=== PATIENT | female | born 1950 | race Caucasian/White ===

== ENCOUNTER → 2016-10-11 | Outpatient (CLI) | payer OTHER ==
[~2016-10-11] MED LIST: ACET-1138 PO; ASPEC325 PO; EZET10TA63 PO; FRRG PO; METO50TA7 PO; MULT-506 PO; OMEP10CA2 PO; OPTIRAY 320 IV PRN; ROSU40TA PO; RXC5 PO
[2016-10-11 16:17] LABS: ALT/SGPT 29 U/L (12-78); AMYLASE 62 U/L (25-115); AST/SGOT 15 U/L (15-37); BLOOD UREA NITROGEN 14 mg/dl (7-18); BUN/CREATININE RATIO 16.7 (10-20); CALCIUM 9.6 mg/dl (8.5-10.1); CARBON DIOXIDE 28 mmol/L (21-32); CHLORIDE 102 mmol/L (98-107); CREATININE 0.86 mg/dl (0.60-1.20); GLUCOSE 97 mg/dl (70-99); POTASSIUM 3.8 mmol/L (3.5-5.1); SODIUM 137 mmol/L (136-145)
[2016-10-11 16:18] LABS: ALB/GLOB RATIO 1.3 (0.9-2); ALKALINE PHOSPHATASE 95 U/L (45-117)
[2016-10-11 16:40] LABS: BASO % 0.3 %; BASO ABS # 0.03 K/uL (0-0.2); COMPLETE YES; EOS % 2.7 %; IG% 0.3 %; LYMPH ABS # 3.02 K/uL (1.2-3.4); MEAN CELL VOLUME 91.9 fL (80-100); MEAN CORPUSCULAR HEMOGLOBIN 32.4 pg (25-34); MEAN CORPUSCULAR HGB CONC 35.2 g/dl (32-36); MEAN PLATELET VOLUME 10.5 fL (7.4-10.4); MONO % 11.9 %; NEUT % 53.8 %; PLATELET COUNT 306 K/uL (130-400); RED BLOOD COUNT 4.79 M/uL (4.2-5.4); WHITE BLOOD COUNT 9.74 K/uL (4.8-10.8)
[2016-10-11 16:45] LABS: URINE APPEARANCE CLEAR (CLEAR); URINE BILIRUBIN NEG (NEG); URINE COLOR YELLOW; URINE NITRITE NEG (NEG); URINE SPECIFIC GRAVITY 1.017 (1.000-1.030); UROBILINOGEN NEG (NEG)
[2016-10-11 16:54] LABS: MANUAL MICROSCOPIC REQUIRED? NO; REVIEW REQ? NO
--- NOTE | 2016-10-11 16:57 | DIAGNOSTIC IMAGING REPORT ---
CT ABD/PELVIS IV AND ORAL CONT CLINICAL HISTORY: A four-quadrant pain and persistent vomiting. COMPARISON STUDY: None. TECHNIQUE: Following the IV administration of 115 mL of Optiray-320, CT scan of the abdomen and pelvis was performed from the lung bases to the proximal femurs. Images are reviewed in the axial, sagittal, and coronal planes. IV contrast was administered without complication. CT DOSE: 414.49 mGycm FINDINGS: Lower chest: There are bilateral breast implants. There are bibasal atelectatic changes. There is a hiatal hernia. Liver: There is a very subtle 21 mm hypodense lesion within the medial segment of the left lobe of the liver. An MRI is recommended for further evaluation. Gallbladder: Unremarkable. Spleen: Normal in size and attenuation. Pancreas: Unremarkable. Adrenal glands: There is minor nodular thickening left adrenal gland. Kidneys: There is a left renal cortical scarring. There are tiny renal hypodensities which are too small to characterize but likely represent cysts. These measure up to 4 mm in diameter. Bowel: There are no transition zones indicate bowel obstruction. The appendix appears normal. There is sigmoid diverticulosis. There is no acute peridiverticular inflammatory change. Peritoneum: There is no intraperitoneal free air or abdominal ascites. Vasculature: The abdominal aorta is normal in course and caliber. Adenopathy: None. Pelvic viscera: The bladder, and pelvic viscera are unremarkable. Skeletal structures: No destructive osseous lesions are seen. IMPRESSION: 1. No evidence of bowel obstruction. No evidence of free air 2. Normal appendix 3. Colonic diverticulosis. No evidence of acute diverticulitis 4. Very subtle 21 mm hypodensity within the medial segment of the left lobe of the liver. An MRI is recommended for further characterization, to help determine with this represents a true lesion or area of focal fat. Electronically signed by: Kunal Ramos M.D. 10/11/2016 4:56 PM Dictated Date/Time: 10/11/2016 4:50 PM
== END | disposition home or self-care (01) ==
LOC: C.CTS 15:19
PROVIDERS: ATTEND Internal Medicine
DX: R10.32 Left lower quadrant pain (principal); R11.10 Vomiting, unspecified; R93.2 Abnormal findings on diagnostic imaging of liver and biliary tract; K57.30 Diverticulosis of large intestine without perforation or abscess without bleeding

== ENCOUNTER → 2016-10-21 | Outpatient (CLI) | payer OTHER ==
[~2016-10-21] MED LIST changes: +GADOXETATE DISODIUM (NON-WT BASED PROCEDURE) IV PRN; -OPTIRAY 320 IV PRN
--- NOTE | 2016-10-21 12:45 | DIAGNOSTIC IMAGING REPORT ---
MRI LIVER COMBO CLINICAL HISTORY: Abnormal CT. Possible liver lesion. COMPARISON STUDY: CT of the abdomen and pelvis October 11, 2016. TECHNIQUE: Utilizing a 1.5 Nicol magnet and dedicated coil, multiplanar, multiecho imaging of the abdomen was performed pre and postcontrast administration. Post contrast imaging was performed utilizing dynamic enhancement. Injection of 10 cc of Eovist was uneventful. FINDINGS: Liver morphology is normal. No hepatic lesions identified. The possible 2.1 cm lesion within the medial segment of the left hepatic lobe on CT of October 11, 2016 is not visualized on this exam. This likely reflected focal fat although is not evident on the out of phase sequence. There is no biliary ductal dilatation. The spleen, adrenal glands and pancreas are normal. There is scarring within the midpole the left kidney. There are several subcentimeter renal lesions which likely reflect cysts. There is no abdominal lymphadenopathy. There is mild S-shaped scoliosis of thoracolumbar spine. Breast implants are incidentally noted. IMPRESSION: No hepatic lesions. The possible liver lesion shown on CT of October 11, 2016 is not visualized on this exam and likely reflected focal fat. Electronically signed by: Joao Mckeon M.D. 10/21/2016 12:44 PM Dictated Date/Time: 10/21/2016 12:34 PM
== END | disposition home or self-care (01) ==
LOC: C.MRI 11:01
PROVIDERS: ATTEND Internal Medicine
DX: K76.0 Fatty (change of) liver, not elsewhere classified (principal)

== ENCOUNTER → 2017-06-18 | Day surgery (SDC) | payer OTHER ==
[2017-05-26 15:06] VITALS: Ht 157.5 cm; Wt 72.3 kg
[~2017-06-18] VITALS: Ht 157.5 cm; Wt 72.3 kg
[~2017-06-18] MED LIST changes: -ACET-1138 PO; -ASPEC325 PO; +ASPI-435 PO; -FRRG PO; -GADOXETATE DISODIUM (NON-WT BASED PROCEDURE) IV PRN; +IOPAMIDOL INJ 61% 15 ML VIAL ONE; +LIDOCAINE HCL 1% MPF 5 ML VIAL ONE; -MULT-506 PO; +NXM/40 PO; -OMEP10CA2 PO; -RXC5 PO; +SODIUM CHLORIDE 0.9% INJ 10 ML VIAL ONE
--- NOTE | 2017-06-18 14:31 | History & Physical Bridge - SC ---
H&P Re-Evaluation Bridge Note: I have examined the patient, reviewed the History & Physical and in the interval since the performance of the History & Physical I have noted the following changes of clinical significance: No changes noted
[2017-06-18 14:55] VITALS: TEMP 36.7
--- NOTE | 2017-06-18 14:57 | Discharge Instructions ---
Discharge Instructions Date of Service Jun 18, 2017. Visit Reason for Visit: Lumbar Spinal Stenosis Discharge Discharge Diagnosis / Problem: leg pain Discharge Goals Goal(s): Decrease discomfort, Improve function Medications Stopped Medications Name(s): asa prn, last dose 06/13/17 Activity Recommendations Activity Limitations: resume your previous activity Anesthesia . Post Anesthesia Instructions: If you have had General Anesthesia or IV Sedation: * Do not drive today. * Resume driving when surgeon permits. * Do not make important decisions or sign legal documents today. * Call surgeon for: 1. Temperature elevations greater than 101 degrees F. 2. Uncontrollable pain. 3. Excessive bleeding. 4. Persistent nausea and vomiting. 5. Medication intolerance (nausea, vomiting or rash). * For nausea and vomiting use only clear liquids such as: tea, soda, bouillon until nausea subsides, then gradually increase diet as tolerated. * If you have any concerns or questions, call your surgeon's office. If physician is unavailable and it is an emergency, call 911 or go to the nearest emergency room. . Diet Recommendations Recommended Home Diet: resume previous diet Procedures Procedures Performed: LUMBAR EPIDURAL STEROID INJECTION Pending Studies Studies pending at discharge: no Medical Emergencies . Who to Call and When: Medical Emergencies: If at any time you feel your situation is an emergency, please call 911 immediately. . Non-Emergent Contact Non-Emergency issues call your: Specialist . . "Provider Documentation" section prepared by Elijah May. .
[2017-06-18 15:05] VITALS: BP 156/84; PULSE 64; O2SAT 96
--- NOTE | 2017-06-18 15:12 | OPERATIVE REPORT ---
DATE OF OPERATION: 06/18/2017 PREOPERATIVE DIAGNOSIS: Lumbar spinal stenosis with neurogenic claudication. POSTOPERATIVE DIAGNOSIS: Same. PROCEDURE: Left paramedian L5-S1 intralaminar epidural steroid injection under fluoroscopic guidance. INDICATIONS: The patient is a 67-year-old white female who has had a 2-year history of lumbar spinal stenosis with neurogenic claudication that has not responded to conservative measures. She presents today for an epidural injection to provide her with relief of the lower extremity radicular pain. PHYSICAL EXAMINATION: Pleasant female seated comfortably. She has no issues with forward flexion or extension. She has normal motor and sensory examination of her lower extremities. Negative seated straight leg raises. CONSENT: Verbal and written consent was obtained from the patient. Risks and benefits were reviewed. Risks include but are not limited to epidural abscess, epidural hematoma, allergic reaction, dural puncture. The patient wishes to proceed. DESCRIPTION OF PROCEDURE: The patient was taken back to the special procedures room of the [facility] where she was maintained in a prone position. Backside was cleansed with Betadine x3 and a dry sterile dressing was applied. Fluoroscope was used to identify the L5-S1 intralaminar space. Overlying skin on the left side was anesthetized with 4 mL of lidocaine 1% with a 25 gauge 1.5-inch needle. A 22 gauge 3.5 inch Tuohy needle was then directed down towards the intralaminar space. It was advanced under lateral fluoroscopic guidance and loss of resistance was noted at a depth of 6 cm. Isovue-300 contrast 1 mL was injected in which demonstrated an epidural uptake pattern. She then underwent injection after negative aspiration of 40 mg of Depo-Medrol and 4 mL of preservative free sodium chloride. Injection was well tolerated. DISPOSITION: 1. The patient is taken out into the discharge recovery area where she will be discharged home once discharge criteria have been met. 2. Follow up in the [facility] office in 2-4 weeks. I attest to the content of the Intraoperative Record and any orders documented therein. Any exception s are noted below.
== END | disposition home or self-care (01) ==
LOC: X.SURG 13:25
PROVIDERS: ATTEND Physical Medicine & Rehabilitation
DX: M48.062 Spinal stenosis, lumbar region with neurogenic claudication (principal)

== ENCOUNTER 2017-08-20 12:00 | Emergency (ER) | payer OTHER ==
[~2017-08-20] VITALS: Ht 160 cm; Wt 71.6 kg
[~2017-08-20 12:00] MED LIST changes: -IOPAMIDOL INJ 61% 15 ML VIAL ONE; -LIDOCAINE HCL 1% MPF 5 ML VIAL ONE; -METO50TA7 PO; +METO50TA8 PO; -SODIUM CHLORIDE 0.9% INJ 10 ML VIAL ONE
[2017-08-20 12:03] VITALS: TEMP 37.1
[2017-08-20] MEDS ORDERED: ASPI325T39 PO (12:19)
[2017-08-20] MEDS ORDERED: SODIUM CHLORIDE 0.9% 1000ML 1,000 ML IV STA (12:28)
[2017-08-20 12:34] VITALS: O2SAT 94; Ht 160 cm; Wt 71.6 kg
[2017-08-20 12:35] LABS: BASO % 0.4 %; BASO ABS # 0.03 K/uL (0-0.2); EOS % 3.3 %; EOS ABS # 0.28 K/uL (0-0.5); HEMATOCRIT 41.2 % (37-47); HEMOGLOBIN 14.3 g/dL (12.0-16.0); IG# 0.02 K/uL (0.00-0.02); LYMPH ABS # 2.37 K/uL (1.2-3.4); MEAN CELL VOLUME 91.6 fL (80-100); MEAN CORPUSCULAR HEMOGLOBIN 31.8 pg (25-34); MEAN CORPUSCULAR HGB CONC 34.7 g/dl (32-36); MEAN PLATELET VOLUME 9.4 fL (7.4-10.4); MONO % 9.7 %; MONO ABS # 0.82 K/uL (0.11-0.59); NEUT % 58.4 %; NEUT ABS # 4.94 K/uL (1.4-6.5); PLATELET COUNT 306 K/uL (130-400); RED CELL DISTRIBUTION WIDTH CV 12.6 % (11.5-14.5); WHITE BLOOD COUNT 8.46 K/uL (4.8-10.8)
[2017-08-20] MEDS ORDERED: ONDANSETRON INJ 2 MG/ML 2 ML VIAL IV STA ×2 (12:42→14:23)
[2017-08-20] MEDS ORDERED: MoRPHine SULFATE 4 MG/ML 1 ML CARP\\VIAL IV STA (12:42)
[2017-08-20 12:43] LABS: CALCIUM 9.4 mg/dl (8.5-10.1); CREATININE 0.92 mg/dl (0.60-1.20); POTASSIUM 3.9 mmol/L (3.5-5.1)
[2017-08-20 12:44] LABS: PTT PATIENT 23.6 SECONDS (21.0-31.0)
[2017-08-20 12:54] LABS: TOTAL PROTEIN 7.6 gm/dl (6.4-8.2)
--- NOTE | 2017-08-20 13:15 | EMERGENCY ROOM VISIT NOTE ---
History Report prepared by Varun: Too Johnson Under the Supervision of: Dr. Bill Cabrera M.D. First contact with patient: 12:28 Chief Complaint: DIARRHEA Stated Complaint: DIARRHEA Nursing Triage Summary: Pt states, "I have extreme diarrhea and haven't been eating. I have a h/a and stiff neck. Ailyn said to come here." Diffuse abd pain and nausea. Sx x 1 week. Just returned from [facility] approx 2 weeks ago History of Present Illness The patient is a 67 year old female who presents to the Emergency Room with complaints of resolved diarrhea for six days. She recently traveled to [facility] for a mission trip and has been home since August 08, 2017. She denies taking any medication prior to traveling or during her travels. She was prescribed Cipro prior to leaving, though she did not take it, because she does not like taking antibiotics. She notes that she cannot give a stool sample, because there is nothing in there. She notes the last time she had a bowel movement was yesterday. She notes that she began experiencing diarrhea six days ago. She notes that she contacted her PCP who informed her that they would not prescribe her any medication without a stool sample and she has been unable to provide one. She was seen at [facility] and was advised to come to this ED for evaluation. Per , the patient has not been able to get out of the bed. She notes weakness, fatigue, and abdominal pain. She currently rates her pain a 7/10 in severity. She notes her stools were black. She notes a stiff neck with a headache for four days. She has been taking Excedrin, though it did not provide relief. She has not been drinking or eating well. She notes that she has felt warm, though she denies any recorded fevers. She notes her arms and legs feel weak. She states that she has been nauseous. She reports taking Nexium for acid reflux. She denies any history of abdominal surgeries. The patient reports mild weight loss, though is unsure how much. Pt denies LOC, fevers, chills, diaphoresis, visual changes, chest pain, breathing difficulties, vomiting, back pain, melena, hematochezia, urinary symptoms, numbness, rash, or other complaints. Source of History: patient, spouse/significant other Onset: six days Position: other (global) Symptom Intensity: Quality: other (diarrhea) Timing: resolved Associated Symptoms: + headache, + abdominal pain, + fatigue, + weakness Note: She notes black stools and a stiff neck. She notes weight loss. Review of Systems See HPI for pertinent positives and negatives. A total of ten systems were reviewed and were otherwise negative. Past Medical & Surgical Medical Problems: (1) Right Knee DJD Surgical Problems: (1) H/O breast surgery Family History Not known due to adoption Social History Smoking Status: Never Smoker Smokeless Tobacco Use: No Alcohol Use: occasionally Drug Use: none Marital Status: Housing Status: lives with significant other Occupation Status: unemployed Current/Historical Medications Scheduled Aspirin (Aspirin Ec), 325 MG PO DAILY Esomeprazole Magnesium (Nexium), 40 MG PO QAM Ezetimibe (Zetia), 10 MG PO QAM Metoprolol Succ (Toprol Xl) (Toprol-Xl), 50 MG PO QAM Rosuvastatin Calcium (Crestor), 40 MG PO QAM Allergies Coded Allergies: Bisphosphonates (Verified Adverse Reaction, Unknown, INTOLERANT-STOMACH AND CHEST PAINS, 06/18/17) Physical Exam Vital Signs Date Time Temp Pulse Resp B/P (MAP) Pulse Ox O2 Delivery O2 Flow Rate FiO2 08/20/17 18:53 55 18 129/61 98 Room Air 08/20/17 17:18 56 16 119/55 98 Room Air 08/20/17 17:17 58 08/20/17 15:25 56 18 121/65 97 Room Air 08/20/17 14:33 58 18 119/60 98 Room Air 08/20/17 14:03 60 16 135/61 93 Room Air 08/20/17 13:01 58 08/20/17 12:34 94 Room Air 08/20/17 12:03 37.1 80 18 135/85 94 Room Air Physical Exam GENERAL: Awake, alert, uncomfortable-appearing, in no distress HENT: Normocephalic, atraumatic. Oropharynx unremarkable. EYES: Normal conjunctiva. Sclera non-icteric. NECK: Supple. No nuchal rigidity. FROM. No masses. RESPIRATORY: Clear to auscultation. No wheezes. CARDIAC: Normal rate. Normal rhythm. No murmurs. No rubs. Extremities warm and well perfused. Pulses equal. No JVD. GI: Soft, non-distended. diffuse tenderness of the abdomen. No rebound or guarding. No masses. RECTAL: Deferred. MUSCULOSKELETAL: Atraumatic. Chest examination reveals no tenderness. The back is symmetrical on inspection without obvious abnormality. There is no CVA tenderness to palpation. No joint edema. LOWER EXTREMITIES: Calves are equal size bilaterally and non-tender. No edema. No discoloration. NEURO: Normal sensorium. No sensory or motor deficits noted. SKIN: No rash or jaundice noted. Medical Decision & Procedures ER Provider Diagnostic Interpretation: Radiology results as stated below per my review and radiologist interpretation: ABD/PELVIS IV AND ORAL CONT CLINICAL HISTORY: 67 years-old Female presenting with diffuse abd pain, ?colitis. TECHNIQUE: Multidetector CT of the abdomen and pelvis was performed after the administration of oral and intravenous contrast. IV contrast: 90 mL of Optiray 320. A dose lowering technique was used consistent with the principles of ALARA (as low as reasonably achievable). COMPARISON: 10/11/2016. CT DOSE (mGy.cm): The estimated cumulative dose is 403.11 mGy.cm. FINDINGS: Director Of Analytics topogram: Large stool burden in the right colon. Lung bases: Bilateral breast implants noted. Bandlike and reticular dependent opacities likely atelectasis or scarring. Mild multichamber enlargement of the heart. Coronary artery and aortic valve calcification. No pericardial or pleural effusion. Liver: Normal morphology. Perfusional variation noted along the fissure for the ligamentum teres. No focal lesion. Patent hepatic vasculature. Biliary: No intrahepatic or extrahepatic biliary ductal dilatation. Normal gallbladder. Pancreas: Normal. Spleen: Normal. Adrenal glands: Normal. Kidneys and ureters: Cortical deformity of the interpolar region of the left kidney could suggest prior injury, infarct, or infection. No hydronephrosis. No nephrolithiasis. Few tiny renal cysts suggested. Normal ureters. Bladder: Normal. Pelvic organs: Uterus and ovaries normal. Bowel: Diverticulosis of the sigmoid colon. No pericolonic inflammatory change. Marked stool burden in the right colon and cecum. The appendix is normal. No bowel obstruction. Moderate hiatal hernia. Peritoneal cavity: No free fluid or intraperitoneal gas. Lymph nodes: No enlarged lymph nodes in the abdomen or pelvis. Vasculature: Atherosclerosis of the normal caliber abdominal aorta. IVC patent. Abdominal wall: Postsurgical changes of the anterior abdominal wall likely from prior ventral hernia repair. Musculoskeletal: Degenerative changes of the spine. IMPRESSION: 1. Marked stool burden in the right colon and cecum compatible with constipation. No bowel obstruction. 2. Diverticulosis. No evidence of diverticulitis. 3. Bibasilar atelectasis. Electronically signed by: Nadeem Valderrama M.D. 08/20/2017 3:18 PM Dictated Date/Time: 08/20/2017 3:12 PM Laboratory Results 08/20/17 12:15 Red Blood Count 4.50, Mean Corpuscular Volume 91.6, Mean Corpuscular Hemoglobin 31.8, Mean Corpuscular Hemoglobin Concent 34.7, Mean Platelet Volume 9.4, Neutrophils (%) (Auto) 58.4, Lymphocytes (%) (Auto) 28.0, Monocytes (%) (Auto) 9.7, Eosinophils (%) (Auto) 3.3, Basophils (%) (Auto) 0.4, Neutrophils # (Auto) 4.94, Lymphocytes # (Auto) 2.37, Monocytes # (Auto) 0.82, Eosinophils # (Auto) 0.28, Basophils # (Auto) 0.03 08/20/17 12:15 Test 08/20/17 12:15 08/20/17 14:55 White Blood Count 8.46 K/uL (4.8-10.8) Red Blood Count 4.50 M/uL (4.2-5.4) Hemoglobin 14.3 g/dL (12.0-16.0) Hematocrit 41.2 % (37-47) Mean Corpuscular Volume 91.6 fL (80-100) Mean Corpuscular Hemoglobin 31.8 pg (25-34) Mean Corpuscular Hemoglobin Concent 34.7 g/dl (32-36) Platelet Count 306 K/uL (130-400) Mean Platelet Volume 9.4 fL (7.4-10.4) Neutrophils (%) (Auto) 58.4 % Lymphocytes (%) (Auto) 28.0 % Monocytes (%) (Auto) 9.7 % Eosinophils (%) (Auto) 3.3 % Basophils (%) (Auto) 0.4 % Neutrophils # (Auto) 4.94 K/uL (1.4-6.5) Lymphocytes # (Auto) 2.37 K/uL (1.2-3.4) Monocytes # (Auto) 0.82 K/uL (0.11-0.59) Eosinophils # (Auto) 0.28 K/uL (0-0.5) Basophils # (Auto) 0.03 K/uL (0-0.2) RDW Standard Deviation 42.0 fL (36.4-46.3) RDW Coefficient of Variation 12.6 % (11.5-14.5) Immature Granulocyte % (Auto) 0.2 % Immature Granulocyte # (Auto) 0.02 K/uL (0.00-0.02) Prothrombin Time 10.3 SECONDS (9.0-12.0) Prothromb Time International Ratio 1.0 (0.9-1.1) Activated Partial Thromboplast Time 23.6 SECONDS (21.0-31.0) Partial Thromboplastin Ratio 0.9 Anion Gap 6.0 mmol/L (3-11) Est Creatinine Clear Calc Drug Dose 54.7 ml/min Estimated GFR () 73.6 Estimated GFR (Non- 63.5 BUN/Creatinine Ratio 17.0 (10-20) Calcium Level 9.4 mg/dl (8.5-10.1) Magnesium Level 2.2 mg/dl (1.8-2.4) Total Bilirubin 0.4 mg/dl (0.2-1) Direct Bilirubin 0.1 mg/dl (0-0.2) Aspartate Amino Transf (AST/SGOT) 18 U/L (15-37) Alanine Aminotransferase (ALT/SGPT) 33 U/L (12-78) Alkaline Phosphatase 77 U/L (45-117) Total Protein 7.6 gm/dl (6.4-8.2) Albumin 4.0 gm/dl (3.4-5.0) Lipase 202 U/L (73-393) Thyroid Stimulating Hormone (TSH) 0.595 uIu/ml (0.300-4.500) Urine Color YELLOW Urine Appearance CLEAR (CLEAR) Urine pH 5.0 (4.5-7.5) Urine Specific Gould 1.010 (1.000-1.030) Urine Protein NEG (NEG) Urine Glucose (UA) NEG (NEG) Urine Ketones NEG (NEG) Urine Occult Blood NEG (NEG) Urine Nitrite NEG (NEG) Urine Bilirubin NEG (NEG) Urine Urobilinogen NEG (NEG) Urine Leukocyte Esterase NEG (NEG) Laboratory results reviewed by me Medications Administered Medications (Trade) Dose Ordered Sig/Yuan Route Start Time Stop Time Status Last Admin Dose Admin Sodium Chloride 1,000 ml @ 999 mls/hr Q1H1M STAT IV 08/20/17 12:28 08/20/17 13:28 DC 08/20/17 12:55 999 MLS/HR Ondansetron HCl (Zofran Inj) 4 mg NOW STAT IV 08/20/17 12:42 08/20/17 12:44 DC 08/20/17 13:04 4 MG Morphine Sulfate (MoRPHine SULFATE INJ) 4 mg NOW STAT IV 08/20/17 12:42 08/20/17 12:44 DC 08/20/17 13:04 4 MG Hydromorphone HCl (Dilaudid Inj) 0.5 mg Q15M PRN IV 08/20/17 14:30 09/03/17 14:29 08/20/17 15:25 0.5 MG Ondansetron HCl (Zofran Inj) 4 mg NOW STAT IV 08/20/17 14:23 08/20/17 14:24 DC 08/20/17 14:33 4 MG Lactated Ringer's 1,000 ml @ 125 mls/hr Q8H STAT IV 08/20/17 14:23 08/20/17 22:22 08/20/17 14:34 125 MLS/HR ECG Per My Interpretation Indication: weakness Rate (beats per minute): 62 Rhythm: normal sinus Findings: no acute ischemic change, no ectopy, other (Normal intervals) ED Course 1234: The patient was evaluated in room C3. A complete history and physical exam was performed. 1228: Ordered Sodium Chloride 1,000 ml @ 999 mls/hr IV 1242: Ordered Morphine Sulfate 4 mg IV and Zofran 4 mg IV 1403: I reassessed the patient at this time. She is still having pain and nausea. 1423: Ordered Lactated Ringer's 1,000 ml @ 125 mls/hr and Zofran 1430: Ordered Dilaudid 0.5 mg IV 1435: I reassessed the patient at this time. She is unchanged. 1637: I reassessed the patient at this time. She feels weak. Pain has resolved. Nausea has resolved. 1646: I reassessed the patient at this time. She has been given clear liquids and crackers to eat. 173: I spoke with RAKESH Jeter. The patient has tolerated the food. 184: I reassessed the patient at this time. She is feeling better and resting comfortably. She was able to eat soup. I discussed the results and treatment plan with the patient. I answered all pertaining questions that she had. She expressed understanding and verbalized agreement. The patient will be discharged home. Medical Decision Triage Nursing notes reviewed. The patient's presentation and history were concerning for abdominal pain, traveler's diarrhea, weakness, headache. Etiologies such as dehydration, colitis, infectious diarrhea, C. difficile infection, gastroenteritis, food borne illness, infections, obstruction, pancreatitis, appendicitis, diverticulitis, inflammatory bowel disease, GI bleed , biliary pathology, toxicologic, meningitis, encephalitis, as well as others were entertained. Patient was evaluated. She was hydrated with normal saline. She was given Zofran and morphine for pain control and nausea control. The patient had an unremarkable CBC and chemistry panel. Stool studies ordered. CT imaging ordered. The patient was unable to provide a stool sample after many hours here in the emergency department. She was given a small dose of morphine and Zofran. She was hydrated. She was feeling better but still had abdominal pain and nausea. She was given a second dose of Zofran and a small dose of Dilaudid. She underwent CT imaging after full contrast prep. Stool burden noted in the right colon but there is no evidence of intra-abdominal pathology. No colitis, diverticulitis, or suggestion of diarrheal illness. The patient had normal blood work. On reassessment she had resolution of symptoms. She was somewhat reluctant about trying an oral challenge but then did so. She felt much better after having some soup and crackers. Her symptoms were resolved. The patient had resolution of her fatigue, headache, neck stiffness, and abdominal pains. Her testing was unremarkable. She was given collection equipment for a stool study and will take this to her PCP or infectious disease specialist. She does not have fever, meningeal findings, or any persisting headache. At this point lumbar puncture was felt to be unnecessary. She has no pulmonary symptoms. She has normal diagnostic studies. I suspect the preceding if she worsens in any way diarrheal illness and lack of eating led to the constellation of symptoms. The patient will come back to the emergency department. The patient and her feel very comfortable with this plan of conservative management. I gave my usual and customary discussion regarding this issue. By the evaluation outlined above other emergent etiologies such as those listed in the differential, as well as others, were deemed relatively unlikely. The patient was educated about the findings as listed above. All questions were answered and the patient was pleased with the treatment. Return instructions were outlined and the patient was discharged in stable condition. The patient was referred to her PCP for follow-up for a recheck of the current condition. Dr. Epi Jewell Medication Reconcilliation Current Medication List: was personally reviewed by me Blood Pressure Screening Patient's blood pressure: Elevated blood pressure Blood pressure disposition: Referred to PCP Impression Primary Impression: Abdominal pain Additional Impressions: Weakness Headache Diarrhea Scribe Attestation The scribe's documentation has been prepared under my direction and personally reviewed by me in its entirety. I confirm that the note above accurately reflects all work, treatment, procedures, and medical decision making performed by me. Departure Information Dispostion Home / Self-Care Referrals Jamey Sierra M.D. (PCP) Forms HOME CARE DOCUMENTATION FORM, IMPORTANT VISIT INFORMATION, WORK / SCHOOL INSTRUCTIONS Patient Instructions My [facility] Additional Instructions Rest and drink plenty of fluids. Tylenol: Take 1000 mg every 6 hours as needed for pain. Do not take more than 3000 mg in a 24 hour period. Slowly advance the diet. Minimize dairy products until diarrhea and abdominal symptoms resolve. If the diarrhea occurs use the sampling Material provided to collect a specimen and have your primary physician or Dr. Meza analyze this. Return to the ER for worsening abdominal pain, vomiting, fevers, bloody stools, severe headache, difficulty breathing, confusion, or as needed. Problem Qualifiers
[2017-08-20] MEDS ORDERED: LACTATED RINGER'S 1000ML 1,000 ML IV STA (14:23)
[2017-08-20] MEDS: HYDROmorphone INJ 0.5 MG/0.5 ML SYR IV PRN ×2 (14:33→15:25)
--- NOTE | 2017-08-20 15:20 | DIAGNOSTIC IMAGING REPORT ---
ABD/PELVIS IV AND ORAL CONT CLINICAL HISTORY: 67 years-old Female presenting with diffuse abd pain, ?colitis. TECHNIQUE: Multidetector CT of the abdomen and pelvis was performed after the administration of oral and intravenous contrast. IV contrast: 90 mL of Optiray 320. A dose lowering technique was used consistent with the principles of ALARA (as low as reasonably achievable). COMPARISON: 10/11/2016. CT DOSE (mGy.cm): The estimated cumulative dose is 403.11 mGy.cm. FINDINGS: Wrapper And Preserver topogram: Large stool burden in the right colon. Lung bases: Bilateral breast implants noted. Bandlike and reticular dependent opacities likely atelectasis or scarring. Mild multichamber enlargement of the heart. Coronary artery and aortic valve calcification. No pericardial or pleural effusion. Liver: Normal morphology. Perfusional variation noted along the fissure for the ligamentum teres. No focal lesion. Patent hepatic vasculature. Biliary: No intrahepatic or extrahepatic biliary ductal dilatation. Normal gallbladder. Pancreas: Normal. Spleen: Normal. Adrenal glands: Normal. Kidneys and ureters: Cortical deformity of the interpolar region of the left kidney could suggest prior injury, infarct, or infection. No hydronephrosis. No nephrolithiasis. Few tiny renal cysts suggested. Normal ureters. Bladder: Normal. Pelvic organs: Uterus and ovaries normal. Bowel: Diverticulosis of the sigmoid colon. No pericolonic inflammatory change. Marked stool burden in the right colon and cecum. The appendix is normal. No bowel obstruction. Moderate hiatal hernia. Peritoneal cavity: No free fluid or intraperitoneal gas. Lymph nodes: No enlarged lymph nodes in the abdomen or pelvis. Vasculature: Atherosclerosis of the normal caliber abdominal aorta. IVC patent. Abdominal wall: Postsurgical changes of the anterior abdominal wall likely from prior ventral hernia repair. Musculoskeletal: Degenerative changes of the spine. IMPRESSION: 1. Marked stool burden in the right colon and cecum compatible with constipation. No bowel obstruction. 2. Diverticulosis. No evidence of diverticulitis. 3. Bibasilar atelectasis. Electronically signed by: Nadeem Valderrama M.D. 08/20/2017 3:18 PM Dictated Date/Time: 08/20/2017 3:12 PM
[2017-08-20 18:53] VITALS: BP 129/61; PULSE 55; O2SAT 98
== END 2017-08-20 19:06 | disposition home or self-care (01) ==
LOC: C.EDB 12:01 → C.EDC 19:06
DX: R10.9 Unspecified abdominal pain (principal); R53.1 Weakness; R51 Headache; R19.7 Diarrhea, unspecified; M17.11 Unilateral primary osteoarthritis, right knee; Z79.82 Long term (current) use of aspirin; Z79.899 Other long term (current) drug therapy; Z88.8 Allergy status to other drugs, medicaments and biological substances

== ENCOUNTER 2017-08-24 18:16 | Emergency (ER) | payer OTHER ==
[~2017-08-24] VITALS: Ht 160 cm; Wt 71.8 kg
[~2017-08-24 18:16] MED LIST changes: -ASPI-435 PO; +ASPI325T39 PO
[2017-08-24 18:19] VITALS: TEMP 37; Ht 160 cm; Wt 71.8 kg
[2017-08-24] MEDS ORDERED: ONDANSETRON 8 MG/54 ML D5W IV STA (18:38)
[2017-08-24] MEDS ORDERED: SODIUM CHLORIDE 0.9% 1000ML 1,000 ML IV STA (18:38)
[2017-08-24] MEDS ORDERED: HYDROmorphone INJ 0.5 MG/0.5 ML SYR IV STA ×2 (18:45→19:56)
[2017-08-24 18:56] VITALS: O2SAT 96
--- NOTE | 2017-08-24 19:13 | EMERGENCY ROOM VISIT NOTE ---
History Report prepared by Varun: Santiago Luna Under the Supervision of: Dr. Bill Cabrera M.D. First contact with patient: 18:23 Chief Complaint: GI ASSESSMENT Stated Complaint: GI UPSET Nursing Triage Summary: patient c/o abdominal pain, n/v/d throughout this week. patient denies n/v/d at this time. pt c/o constant abdominal pain and decreased food/fluid intake patient was in [place] 08/08/17 History of Present Illness The patient is a 67 year old female who presents to the Emergency Room with complaints of a waxing and waning illness that started over a week ago. She states that she recently traveled to [facility]. The patient says that she started with abdominal pain, with episodes of nausea, vomiting, and diarrhea. She notes that she then contacted Dr. Meza of infectious disease, but she could not provide a stool sample for Dr. Meza. The patient states that the nausea, vomiting, and diarrhea ended 6 days ago, but was seen here 4 days ago, and had mostly normal testing. She was told to follow-up with her family doctor, but she has not followed-up yet. The patient notes that she ate a hamburger yesterday and it stayed down. Per the patient's family, the patient was doing fine yesterday, but worsened again today, with nausea, abdominal pain, generalized painful joints, a stiff neck, sore eyes, and instability when walking. She notes that it is painful in her joints to walk. The patient adds that she had her first bowel movement today after going 6 days without one, and today it was dark and black. Pt denies LOC, headache, fevers, chills, diaphoresis, visual changes, chest pain, breathing difficulties, urinary symptoms, numbness, lymphadenopathy, rash, or other complaints. Source of History: patient, family Onset: Over a week ago Position: other (global) Quality: other (illness) Timing: waxes/wanes Associated Symptoms: + neck pain (stiffness), + nausea, + vomiting, + abdominal pain, + diarrhea (but has resolved) Note: Associated symptoms: Dark and black stools today. It was the first bowel movement in 6 days. Sore eyes. Generalized joint pain. Review of Systems See HPI for pertinent positives and negatives. A total of ten systems were reviewed and were otherwise negative. Past Medical & Surgical Medical Problems: (1) Right Knee DJD Surgical Problems: (1) H/O breast surgery Family History Not known due to adoption Social History Smoking Status: Never Smoker Alcohol Use: occasionally Drug Use: none Marital Status: Housing Status: lives with significant other Occupation Status: unemployed Current/Historical Medications Scheduled Amoxicillin & Pot Clavulanate (Augmentin 875-125 mg), 1 TAB PO BID Aspirin (Aspirin Ec), 325 MG PO DAILY Esomeprazole Magnesium (Nexium), 40 MG PO QAM Ezetimibe (Zetia), 10 MG PO QAM Metoprolol Succ (Toprol Xl) (Toprol-Xl), 50 MG PO QAM Ondasetron Odt (Zofran Odt), 4 MG SL Q6H Rosuvastatin Calcium (Crestor), 40 MG PO QAM Allergies Coded Allergies: Bisphosphonates (Verified Adverse Reaction, Unknown, INTOLERANT-STOMACH AND CHEST PAINS, 06/18/17) Physical Exam Vital Signs Date Time Temp Pulse Resp B/P (MAP) Pulse Ox O2 Delivery O2 Flow Rate FiO2 08/24/17 21:47 78 18 150/84 96 Room Air 08/24/17 21:05 88 18 152/74 95 Room Air 08/24/17 19:40 57 18 154/76 95 Room Air 08/24/17 19:22 58 08/24/17 18:56 96 Room Air 08/24/17 18:56 56 18 157/70 97 Room Air 08/24/17 18:19 37.0 66 18 132/78 94 Room Air Physical Exam GENERAL: Awake, alert, uncomfortable-appearing, in no distress HENT: Normocephalic, atraumatic. Oropharynx unremarkable. EYES: Normal conjunctiva. Sclera non-icteric. NECK: Supple. No nuchal rigidity. FROM. No masses. RESPIRATORY: Clear to auscultation. No wheezes. No rales. Normal respiratory effort. CARDIAC: Normal rate. Normal rhythm. No murmurs. No rubs. Extremities warm and well perfused. Pulses equal. No JVD. GI: Soft, non-distended. Left lower and left upper quadrant tenderness. No rebound or guarding. No masses. RECTAL: Deferred. MUSCULOSKELETAL: Atraumatic. Chest examination reveals no tenderness. The back is symmetrical on inspection without obvious abnormality. There is no CVA tenderness to palpation. No joint edema. LOWER EXTREMITIES: Calves are equal size bilaterally and non-tender. No edema. No discoloration. NEURO: Normal sensorium. No sensory or motor deficits noted. SKIN: No rash or jaundice noted. Medical Decision & Procedures ER Provider Diagnostic Interpretation: CT: Radiology results as stated below per my review and radiologist interpretation CT ABD/PELVIS IV CONTRAST ONLY CLINICAL HISTORY: Left lower quadrant abdominal pain. HISTORY OF TRAVEL TO [place] COMPARISON STUDY: 08/20/2017 TECHNIQUE: Following the IV administration of 92 mL of Optiray-320, CT scan of the abdomen and pelvis was performed from the lung bases to the proximal femurs. Images are reviewed in the axial, sagittal, and coronal planes. IV contrast was administered without complication. A dose lowering technique was utilized adhering to the principles of ALARA. CT DOSE: FINDINGS: Lower chest: There are bilateral breast implants. There are dependent airspace opacities likely atelectatic. Liver: The contrast-enhanced liver is normal in size, contour, and attenuation. There is no intrahepatic biliary ductal dilatation. The hepatic veins and portal veins are patent. Gallbladder: Unremarkable. Spleen: Normal in size and attenuation. Pancreas: Unremarkable. Adrenal glands: Unremarkable. Kidneys: There is left renal cortical scarring. No solid renal masses are visualized. There is no hydronephrosis. Bowel: There is a hiatal hernia. There are no transition zone to indicate bowel obstruction. There is no evidence of acute appendicitis. There is colonic diverticulosis. There is no acute peridiverticular inflammatory change. Peritoneum: There is no intraperitoneal free air or abdominal ascites. Vasculature: The abdominal aorta is normal in course and caliber. Adenopathy: None. Pelvic viscera: The bladder, and pelvic viscera are unremarkable. Skeletal structures: No destructive osseous lesions are seen. IMPRESSION: 1. No acute intra-abdominal or pelvic findings 2. No evidence of bowel obstruction. No evidence of free air 3. Hiatal hernia 4. No evidence of acute appendicitis. No evidence of acute diverticulitis. 5. Bibasilar pulmonary opacities, likely atelectatic Electronically signed by: Kunal Ramos M.D. 08/24/2017 8:57 PM Dictated Date/Time: 08/24/2017 8:[address] HEAD WITHOUT CONTRAST (CT) CLINICAL HISTORY: intermittent headaches, travel to [place] COMPARISON STUDY: No previous studies for comparison. TECHNIQUE: Axial CT of the brain is performed from the vertex to the skull base. IV contrast was not administered for this examination. A dose lowering technique was utilized adhering to the principles of ALARA. CT DOSE: 1257.57 mGy.cm FINDINGS: No intra or extra-axial mass lesions are visualized. There is no CT evidence of acute cortical infarction. There is no evidence of midline shift. There is no acute hemorrhage. No calvarial fractures are visualized. There are patchy white matter hypodensities likely on a small vessel basis. There is basal ganglial mineralization. There is no evidence of pathologic ventricular dilatation. There is partial opacification of the left maxillary sinus. IMPRESSION: 1. Age-indeterminate partial opacification of the left maxilla sinus 2. No acute intracranial findings Electronically signed by: Kunal Ramos M.D. 08/24/2017 8:52 PM Dictated Date/Time: 08/24/2017 8:50 PM Laboratory Results 08/24/17 19:01 Red Blood Count 4.42, Mean Corpuscular Volume 88.7, Mean Corpuscular Hemoglobin 32.4, Mean Corpuscular Hemoglobin Concent 36.5, Mean Platelet Volume 9.4, Neutrophils (%) (Auto) 60.8, Lymphocytes (%) (Auto) 28.5, Monocytes (%) (Auto) 7.4, Eosinophils (%) (Auto) 2.8, Basophils (%) (Auto) 0.4, Neutrophils # (Auto) 4.82, Lymphocytes # (Auto) 2.26, Monocytes # (Auto) 0.59, Eosinophils # (Auto) 0.22, Basophils # (Auto) 0.03 08/24/17 19:01 Test 08/24/17 18:50 08/24/17 19:01 08/24/17 20:15 White Blood Count 7.93 K/uL (4.8-10.8) Red Blood Count 4.42 M/uL (4.2-5.4) Hemoglobin 14.3 g/dL (12.0-16.0) Hematocrit 39.2 % (37-47) Mean Corpuscular Volume 88.7 fL (80-100) Mean Corpuscular Hemoglobin 32.4 pg (25-34) Mean Corpuscular Hemoglobin Concent 36.5 g/dl (32-36) Platelet Count 287 K/uL (130-400) Mean Platelet Volume 9.4 fL (7.4-10.4) Neutrophils (%) (Auto) 60.8 % Lymphocytes (%) (Auto) 28.5 % Monocytes (%) (Auto) 7.4 % Eosinophils (%) (Auto) 2.8 % Basophils (%) (Auto) 0.4 % Neutrophils # (Auto) 4.82 K/uL (1.4-6.5) Lymphocytes # (Auto) 2.26 K/uL (1.2-3.4) Monocytes # (Auto) 0.59 K/uL (0.11-0.59) Eosinophils # (Auto) 0.22 K/uL (0-0.5) Basophils # (Auto) 0.03 K/uL (0-0.2) RDW Standard Deviation 38.9 fL (36.4-46.3) RDW Coefficient of Variation 12.1 % (11.5-14.5) Immature Granulocyte % (Auto) 0.1 % Immature Granulocyte # (Auto) 0.01 K/uL (0.00-0.02) Erythrocyte Sedimentation Rate 6 mm/hr (0-21) Prothrombin Time 10.4 SECONDS (9.0-12.0) Prothromb Time International Ratio 1.0 (0.9-1.1) Activated Partial Thromboplast Time 21.9 SECONDS (21.0-31.0) Partial Thromboplastin Ratio 0.8 Anion Gap 8.0 mmol/L (3-11) Est Creatinine Clear Calc Drug Dose 53.1 ml/min Estimated GFR () 70.8 Estimated GFR (Non- 61.1 BUN/Creatinine Ratio 17.0 (10-20) Calcium Level 9.5 mg/dl (8.5-10.1) Magnesium Level 2.0 mg/dl (1.8-2.4) Total Bilirubin 0.4 mg/dl (0.2-1) Direct Bilirubin 0.1 mg/dl (0-0.2) Aspartate Amino Transf (AST/SGOT) 19 U/L (15-37) Alanine Aminotransferase (ALT/SGPT) 36 U/L (12-78) Alkaline Phosphatase 75 U/L (45-117) Troponin I < 0.015 ng/ml (0-0.045) C-Reactive Protein < 0.29 mg/dl (0-0.29) Total Protein 7.3 gm/dl (6.4-8.2) Albumin 3.8 gm/dl (3.4-5.0) Lipase 142 U/L (73-393) Thyroid Stimulating Hormone (TSH) 1.510 uIu/ml (0.300-4.500) Hepatitis B Surface Antigen NEG (NEG) Hepatitis C Antibody NEG (NEG) Urine Color YELLOW Urine Appearance CLEAR (CLEAR) Urine pH 5.5 (4.5-7.5) Urine Specific [place] 1.009 (1.000-1.030) Urine Protein NEG (NEG) Urine Glucose (UA) NEG (NEG) Urine Ketones NEG (NEG) Urine Occult Blood NEG (NEG) Urine Nitrite NEG (NEG) Urine Bilirubin NEG (NEG) Urine Urobilinogen NEG (NEG) Urine Leukocyte Esterase NEG (NEG) Laboratory results reviewed by me Medications Administered Medications (Trade) Dose Ordered Sig/Yuan Route Start Time Stop Time Status Last Admin Dose Admin Sodium Chloride 1,000 ml @ 999 mls/hr Q1H1M STAT IV 08/24/17 18:38 08/24/17 19:38 DC 08/24/17 18:38 999 MLS/HR Ondansetron HCl (Zofran 8mg Iv) 8 mg NOW STAT IV 08/24/17 18:38 08/24/17 18:45 DC 08/24/17 19:13 8 MG Hydromorphone HCl (Dilaudid Inj) 0.5 mg NOW STAT IV 08/24/17 18:45 08/24/17 18:46 DC 08/24/17 19:13 0.5 MG Hydromorphone HCl (Dilaudid Inj) 0.5 mg NOW STAT IV 08/24/17 19:56 08/24/17 19:57 DC 08/24/17 20:03 0.5 MG Amoxicillin/ Clavulanate Potassium (Augmentin 875MG Home Pack) 1 homepack UD ONCE PO 08/24/17 21:30 08/24/17 21:31 DC 08/24/17 21:56 1 HOMEPACK Ondansetron HCl (ZOFRAN ODT 4MG Home Pack) 1 homepack UD ONCE PO 08/24/17 21:30 08/24/17 21:31 DC 08/24/17 21:56 1 HOMEPACK ECG Per My Interpretation Indication: nausea Rate (beats per minute): 56 Rhythm: sinus bradycardia Findings: no acute ischemic change, no ectopy ED Course 1831: I reviewed the patient's past medical records: the patient was here on August 20 and I saw her, for similar symptoms, blood work was normal, urine test was negative, urine culture unremarkable, CT showed moderate stool in right colon otherwise no acute disease. The patient was unable to provide stool specimen at that time and was discharged to follow-up. 1832: The patient was evaluated in room A4B. A complete history and physical exam was performed. 1837: Zofran 8mg IV, NSS 1000 ml @ 999 mls/hr IV. 1844: Dilaudid Inj 0.5 mg IV. 2129: Zofran ODT 4MG Home Pack 1 homepack PO, Augmentin 875MG Home Pack 1 homepack PO. 2130: I reevaluated the patient and she is feeling better. Discussed results and discharge instructions: she verbalized understanding and agreement. The patient is ready for discharge. Medical Decision Triage Nursing notes reviewed. The patient's presentation and history were concerning for recent travel, abdominal pain, diarrheal illness, myalgias, and arthralgias. Etiologies such as Colitis, diverticulitis, hepatitis, metabolic, infection, hypo/hyperglycemia, electrolyte abnormalities, cardiac sources, intracerebral event, toxicologic, neurologic, parasitic infection, as well as others were entertained. The patient was evaluated. She was uncomfortable. She had rather moderate left -sided abdominal tenderness on examination. This was a definite change compared to her prior visit and my examination then. She was afebrile. Her symptoms have been going on for over 2 weeks. She did provide a stool sample. It was formed and therefore C. difficile testing was not performed. She was not on the antibiotics. She was hydrated. She was given Zofran and Dilaudid for symptom control. Blood work is obtained. Urinalysis obtained as well. The patient was sent for CT imaging due to the tenderness and complaints. On reassessment after hydration, medications and rest the patient was doing well. She felt much better. Her nausea resolved. The patient had no acute findings on abdominal imaging. Her head CT revealed opacification of the left maxillary sinus although this was partially imaged. She does have a history of sinus infection after discussion with the patient and her son. She does not have any meningeal findings. She is not febrile and has no leukocytosis. I will treat her with Augmentin for the sinus findings. Her CBC, chemistry panel , inflammatory markers and cardiac markers were unremarkable. The patient will be given Augmentin as an outpatient by prescription. Stool studies are pending. Hepatitis screen was negative. The patient will follow up in the 1-2 day timeframe with her primary clinic. If she worsens in any way she will be back. She was also given a prescription for Zofran in case any of the nausea returns. We had a long discussion about the workup, findings and necessary follow-up. I gave my usual and customary discussion regarding this issue. By the evaluation outlined above other emergent etiologies such as those listed in the differential, as well as others, were deemed relatively unlikely. The patient was educated about the findings as listed above. All questions were answered and the patient was pleased with the treatment. Return instructions were outlined and the patient was discharged in stable condition. The patient was referred to her PCP for follow-up for a recheck of the current condition. Medication Reconcilliation Current Medication List: was personally reviewed by me Blood Pressure Screening Patient's blood pressure: Elevated blood pressure Blood pressure disposition: Referred to PCP Impression Primary Impression: Sinusitis Additional Impressions: Abdominal pain Nausea Arthralgia Scribe Attestation The scribe's documentation has been prepared under my direction and personally reviewed by me in its entirety. I confirm that the note above accurately reflects all work, treatment, procedures, and medical decision making performed by me. Departure Information Dispostion Home / Self-Care Prescriptions Amoxicillin & Pot Clavulanate (Augmentin 875-125 mg) 1 Tab Tab 1 TAB PO BID, #18 TAB Prov: Bill Cabrera MD 08/24/17 Ondasetron Odt (ZOFRAN ODT) 4 Mg Tab 4 MG SL Q6H for Nausea, #10 TAB Prov: Bill Cabrera MD 08/24/17 Referrals No Doctor, Assigned (PCP) Jamey Sierra M.D. Patient Instructions My [facility] Additional Instructions Amoxicillin Clavulanate (Augmentin) 875mg: Take one pill twice daily for 10 days for your infection. All antibiotics can cause diarrhea. If this occurs and you feel worse or it does not resolve in 1-2 days follow up with your doctor or return to the Emergency Department as this could be signs of serious underlying problems. Any medication can cause an allergic reaction, stop the pills immediately and return to the ER for rash, hives, breathing difficulties, or swelling. Zofran 4 mg oral dissolving tablets: take one tablet and allow it to melt in your mouth every 4 hours as needed for nausea. Tylenol: Take 1000 mg every 6 hours as needed for pain. Do not take more than 3000 mg in a 24 hour period. Stool studies are currently pending. Call back to the emergency department on August 27 for results. [phone]. Rest and drink plenty of fluids. Diet as tolerated. Return to the ER for worsening abdominal pain, Headache, passing out, vomiting, fevers, bloody stools, or as needed. Follow-up with your primary physician's office in 1-2 days. Problem Qualifiers
[2017-08-24] MEDS ORDERED: OPTIRAY 320 IV PRN (19:15)
[2017-08-24 19:18] LABS: BASO % 0.4 %; BASO ABS # 0.03 K/uL (0-0.2); EOS % 2.8 %; EOS ABS # 0.22 K/uL (0-0.5); HEMATOCRIT 39.2 % (37-47); HEMOGLOBIN 14.3 g/dL (12.0-16.0); IG# 0.01 K/uL (0.00-0.02); LYMPH % 28.5 %; LYMPH ABS # 2.26 K/uL (1.2-3.4); MEAN CELL VOLUME 88.7 fL (80-100); MEAN CORPUSCULAR HEMOGLOBIN 32.4 pg (25-34); MEAN CORPUSCULAR HGB CONC 36.5 g/dl (32-36); MEAN PLATELET VOLUME 9.4 fL (7.4-10.4); MONO % 7.4 %; MONO ABS # 0.59 K/uL (0.11-0.59); NEUT % 60.8 %; NEUT ABS # 4.82 K/uL (1.4-6.5); PLATELET COUNT 287 K/uL (130-400); RED CELL DISTRIBUTION WIDTH CV 12.1 % (11.5-14.5); RED CELL DISTRIBUTION WIDTH SD 38.9 fL (36.4-46.3); WHITE BLOOD COUNT 7.93 K/uL (4.8-10.8)
[2017-08-24 19:28] LABS: PTT PATIENT 21.9 SECONDS (21.0-31.0)
[2017-08-24 19:38] LABS: ALBUMIN 3.8 gm/dl (3.4-5.0); ALT/SGPT 36 U/L (12-78); BLOOD UREA NITROGEN 16 mg/dl (7-18); CALCIUM 9.5 mg/dl (8.5-10.1); CARBON DIOXIDE 28 mmol/L (21-32); CREATININE 0.95 mg/dl (0.60-1.20); GLUCOSE 91 mg/dl (70-99); LIPASE 142 U/L (73-393); POTASSIUM 3.8 mmol/L (3.5-5.1); SODIUM 136 mmol/L (136-145)
[2017-08-24 19:47] LABS: ALKALINE PHOSPHATASE 75 U/L (45-117); AST/SGOT 19 U/L (15-37); TOTAL PROTEIN 7.3 gm/dl (6.4-8.2)
[2017-08-24 20:26] LABS: HEP C IGG 13 YRS+OLDER_RFLX NEG (NEG)
--- NOTE | 2017-08-24 20:53 | DIAGNOSTIC IMAGING REPORT ---
CT HEAD WITHOUT CONTRAST (CT) CLINICAL HISTORY: intermittent headaches, travel to [place] COMPARISON STUDY: No previous studies for comparison. TECHNIQUE: Axial CT of the brain is performed from the vertex to the skull base. IV contrast was not administered for this examination. A dose lowering technique was utilized adhering to the principles of ALARA. CT DOSE: 1257.57 mGy.cm FINDINGS: No intra or extra-axial mass lesions are visualized. There is no CT evidence of acute cortical infarction. There is no evidence of midline shift. There is no acute hemorrhage. No calvarial fractures are visualized. There are patchy white matter hypodensities likely on a small vessel basis. There is basal ganglial mineralization. There is no evidence of pathologic ventricular dilatation. There is partial opacification of the left maxillary sinus. IMPRESSION: 1. Age-indeterminate partial opacification of the left maxilla sinus 2. No acute intracranial findings Electronically signed by: Kunal Ramos M.D. 08/24/2017 8:52 PM Dictated Date/Time: 08/24/2017 8:50 PM
--- NOTE | 2017-08-24 20:59 | DIAGNOSTIC IMAGING REPORT ---
CT ABD/PELVIS IV CONTRAST ONLY CLINICAL HISTORY: Left lower quadrant abdominal pain. HISTORY OF TRAVEL TO [place] COMPARISON STUDY: 08/20/2017 TECHNIQUE: Following the IV administration of 92 mL of Optiray-320, CT scan of the abdomen and pelvis was performed from the lung bases to the proximal femurs. Images are reviewed in the axial, sagittal, and coronal planes. IV contrast was administered without complication. A dose lowering technique was utilized adhering to the principles of ALARA. CT DOSE: FINDINGS: Lower chest: There are bilateral breast implants. There are dependent airspace opacities likely atelectatic. Liver: The contrast-enhanced liver is normal in size, contour, and attenuation. There is no intrahepatic biliary ductal dilatation. The hepatic veins and portal veins are patent. Gallbladder: Unremarkable. Spleen: Normal in size and attenuation. Pancreas: Unremarkable. Adrenal glands: Unremarkable. Kidneys: There is left renal cortical scarring. No solid renal masses are visualized. There is no hydronephrosis. Bowel: There is a hiatal hernia. There are no transition zone to indicate bowel obstruction. There is no evidence of acute appendicitis. There is colonic diverticulosis. There is no acute peridiverticular inflammatory change. Peritoneum: There is no intraperitoneal free air or abdominal ascites. Vasculature: The abdominal aorta is normal in course and caliber. Adenopathy: None. Pelvic viscera: The bladder, and pelvic viscera are unremarkable. Skeletal structures: No destructive osseous lesions are seen. IMPRESSION: 1. No acute intra-abdominal or pelvic findings 2. No evidence of bowel obstruction. No evidence of free air 3. Hiatal hernia 4. No evidence of acute appendicitis. No evidence of acute diverticulitis. 5. Bibasilar pulmonary opacities, likely atelectatic Electronically signed by: Kunal Ramos M.D. 08/24/2017 8:57 PM Dictated Date/Time: 08/24/2017 8:52 PM
[2017-08-24] MEDS ORDERED: AMOX875T PO (21:28)
[2017-08-24] MEDS ORDERED: ONDA4TAB10 SL (21:28)
[2017-08-24] MEDS ORDERED: ONDANSETRON HOME PACK 4MG OD TAB PO ONE (21:30)
[2017-08-24] MEDS ORDERED: AMOXICIL/CLAVU 875MG HOME PACK PO ONE (21:30)
[2017-08-24 21:47] VITALS: BP 150/84; PULSE 78; O2SAT 96
[2017-08-26 13:22] LABS: HEPATITIS A IGM TC 51813E NON-REACTIVE (NON-REACTIVE); HEPATITIS B CORE IGM TC51854R NON-REACTIVE (NON-REACTIVE)
== END 2017-08-24 22:12 | disposition home or self-care (01) ==
LOC: C.EDB 18:16 → C.EDA 22:12
DX: J32.0 Chronic maxillary sinusitis (principal); R10.32 Left lower quadrant pain; R10.12 Left upper quadrant pain; R11.0 Nausea; M25.50 Pain in unspecified joint; R03.0 Elevated blood-pressure reading, without diagnosis of hypertension; Z79.82 Long term (current) use of aspirin; M17.11 Unilateral primary osteoarthritis, right knee; Z98.890 Other specified postprocedural states; Z88.8 Allergy status to other drugs, medicaments and biological substances

== ENCOUNTER → 2017-08-28 | Outpatient (CLI) | payer OTHER ==
[~2017-08-28] MED LIST changes: +AMOX875T PO; +CIPR-255 PO; +HYDR-5688 PO; +METR-163 PO; +ONDA4TAB10 SL
[2017-09-02 00:36] LABS: DENGUE FEVER IgG AB 0.17; DENGUE FEVER IgM AB 1.07
== END | disposition home or self-care (01) ==
LOC: C.LAB 11:26
PROVIDERS: ATTEND Internal Medicine Hospice and Palliative Medicine
DX: R05 Cough (principal); M79.1 Myalgia; M26.629 Arthralgia of temporomandibular joint, unspecified side

== ENCOUNTER 2017-09-01 20:42 | Emergency (ER) | payer OTHER ==
[~2017-09-01] VITALS: Ht 157.5 cm; Wt 72.1 kg
[~2017-09-01 20:42] MED LIST changes: -CIPR-255 PO; -HYDR-5688 PO; -METR-163 PO
[2017-09-01 20:57] VITALS: TEMP 37.1; Ht 157.5 cm; Wt 72.1 kg
[2017-09-01] MEDS ORDERED: SODIUM CHLORIDE 0.9% 1000ML 1,000 ML IV STA (21:30)
[2017-09-01] MEDS ORDERED: ONDANSETRON INJ 2 MG/ML 2 ML VIAL IV STA (21:30)
[2017-09-01] MEDS ORDERED: MoRPHine SULFATE 4 MG/ML 1 ML CARP\\VIAL IV STA (21:30)
--- NOTE | 2017-09-01 21:34 | EMERGENCY ROOM VISIT NOTE ---
History Report prepared by Varun: Santiago Luna Under the Supervision of: Dr. Nolvia Martin M.D. First contact with patient: 21:05 Chief Complaint: ABDOMINAL PAIN Stated Complaint: ABD PAIN History of Present Illness The patient is a 67 year old female who presents to the Emergency Room with complaints of worsening abdominal pain that started about a month ago after a trip to [facility]. She states that she has been seen here twice over the past 10 days due to the pain, and has had thorough workups. The patient says that the pain is all over her abdomen, and is a cramping pain. She notes that it hurts when she pushes on her abdomen, and right now she is having the pain. The patient adds that the pain can get severe, and the pain really worsened today. She states that the pain has been ongoing ever since she was seen here last. She says that she had been having diarrhea, but it resolved about a week ago. The patient denies any fevers or hematochezia. She states that she has followed- up with [facility] gastroenterology in the past, but the last time she was seen there was around 4 years ago. She says that she has never smoked. The patient adds that she has been in contact with Dr. Meza of infectious disease over the past few weeks. Source of History: patient Onset: About a month ago Position: abdomen Symptom Intensity: severe Quality: cramping Timing: other (persistent) Associated Symptoms: + diarrhea (but resolved), No fevers, No hematochezia Review of Systems See HPI for pertinent positives & negatives. A total of 10 systems reviewed and were otherwise negative. Past Medical & Surgical Medical Problems: (1) Right Knee DJD Surgical Problems: (1) H/O breast surgery Family History Not known due to adoption Social History Smoking Status: Never Smoker Alcohol Use: occasionally Drug Use: none Marital Status: Housing Status: lives with significant other Occupation Status: unemployed Current/Historical Medications Scheduled Amoxicillin & Pot Clavulanate (Augmentin 875-125 mg), 1 TAB PO BID Aspirin (Aspirin Ec), 325 MG PO DAILY Ciprofloxacin Hcl (Cipro), 500 MG PO BID Esomeprazole Magnesium (Nexium), 40 MG PO QAM Ezetimibe (Zetia), 10 MG PO QAM Metoprolol Succ (Toprol Xl) (Toprol-Xl), 50 MG PO QAM Metronidazole (Flagyl), 500 MG PO TID Ondasetron Odt (Zofran Odt), 4 MG SL Q6H Rosuvastatin Calcium (Crestor), 40 MG PO QAM Scheduled PRN Hydrocodone/Acetaminophen 5MG/325MG (Trilla 5MG/325MG), 1 TABLET PO q4-6 hr PRN for Pain Allergies Coded Allergies: Bisphosphonates (Verified Adverse Reaction, Unknown, INTOLERANT-STOMACH AND CHEST PAINS, 06/18/17) Physical Exam Vital Signs Date Time Temp Pulse Resp B/P (MAP) Pulse Ox O2 Delivery O2 Flow Rate FiO2 09/02/17 00:04 63 18 94 09/01/17 22:22 63 20 153/73 96 Room Air 09/01/17 21:29 63 09/01/17 20:57 37.1 66 20 122/81 96 Room Air Physical Exam Vital signs reviewed. General: Well-appearing 67 year old female, in no significant distress. HEENT: No scleral icterus, PERRLA, neck supple. Atraumatic. Cardiovascular: Regular rate and rhythm, no extra sounds. Pulmonary: Clear to auscultation bilaterally, normal work of breathing. Abdomen: Tenderness to palpation over lower abdomen and suprapubic region. Soft , nondistended, positive bowel sounds. Musculoskeletal: Atraumatic, no peripheral edema. Neurologic: Patient awake alert and oriented x 3. Skin: Warm, dry, no rash Medical Decision & Procedures ER Provider Diagnostic Interpretation: CT results as stated below per my review and radiologist interpretation: CT ABD/PELVIS IV CONTRAST ONLY CLINICAL HISTORY: Worsening lower abdominal pain COMPARISON STUDY: 08/24/2017 TECHNIQUE: Following the IV administration of 116 mL of Optiray-320, CT scan of the abdomen and pelvis was performed from the lung bases to the proximal femurs. Images are reviewed in the axial, sagittal, and coronal planes. IV contrast was administered without complication. A dose lowering technique was utilized adhering to the principles of ALARA. CT DOSE: 316.75 mGy.cm FINDINGS: Lower chest: There are bilateral breast implants. There is a hiatal hernia. There are bibasilar atelectatic changes. Liver: The contrast-enhanced liver is normal in size, contour, and attenuation. There is no intrahepatic biliary ductal dilatation. The hepatic veins and portal veins are patent. Gallbladder: Unremarkable. Spleen: Normal in size and attenuation. Pancreas: Unremarkable. Adrenal glands: Unremarkable. Kidneys: There is left renal cortical scarring. There is no hydronephrosis. There is a 4 mm left renal cyst. No solid renal masses are visualized. Bowel: There are no transition zones indicate bowel obstruction. The appendix appears normal. There is colonic diverticulosis. There is trace fluid adjacent to the colon at the descending sigmoid junction. There is equivocal minor infiltration of the pericolonic fat. Minimal diverticulitis must be considered. Peritoneum: There is no intraperitoneal free air or abdominal ascites. There are postsurgical changes of anterior abdominal wall hernia repair Vasculature: The abdominal aorta is normal in course and caliber. Adenopathy: None. Pelvic viscera: The bladder, and pelvic viscera are unremarkable. Skeletal structures: No destructive osseous lesions are seen. IMPRESSION: 1. No evidence of bowel obstruction. No evidence of free air 2. Hiatal hernia 3. Normal appendix. Diverticulosis. Equivocal evidence of minimal diverticulitis Electronically signed by: Kunal Ramos M.D. 09/01/2017 10:41 PM Dictated Date/Time: 09/01/2017 10:35 PM Laboratory Results 09/01/17 21:35 Red Blood Count 4.03, Mean Corpuscular Volume 90.8, Mean Corpuscular Hemoglobin 31.3, Mean Corpuscular Hemoglobin Concent 34.4, Mean Platelet Volume 10.0, Neutrophils (%) (Auto) 77.1, Lymphocytes (%) (Auto) 11.7, Monocytes (%) (Auto) 9.3, Eosinophils (%) (Auto) 1.5, Basophils (%) (Auto) 0.1, Neutrophils # (Auto) 12.80, Lymphocytes # (Auto) 1.94, Monocytes # (Auto) 1.55, Eosinophils # (Auto) 0.25, Basophils # (Auto) 0.02 09/01/17 21:35 Test 09/01/17 21:35 09/01/17 22:47 White Blood Count 16.61 K/uL (4.8-10.8) Red Blood Count 4.03 M/uL (4.2-5.4) Hemoglobin 12.6 g/dL (12.0-16.0) Hematocrit 36.6 % (37-47) Mean Corpuscular Volume 90.8 fL (80-100) Mean Corpuscular Hemoglobin 31.3 pg (25-34) Mean Corpuscular Hemoglobin Concent 34.4 g/dl (32-36) Platelet Count 261 K/uL (130-400) Mean Platelet Volume 10.0 fL (7.4-10.4) Neutrophils (%) (Auto) 77.1 % Lymphocytes (%) (Auto) 11.7 % Monocytes (%) (Auto) 9.3 % Eosinophils (%) (Auto) 1.5 % Basophils (%) (Auto) 0.1 % Neutrophils # (Auto) 12.80 K/uL (1.4-6.5) Lymphocytes # (Auto) 1.94 K/uL (1.2-3.4) Monocytes # (Auto) 1.55 K/uL (0.11-0.59) Eosinophils # (Auto) 0.25 K/uL (0-0.5) Basophils # (Auto) 0.02 K/uL (0-0.2) RDW Standard Deviation 42.5 fL (36.4-46.3) RDW Coefficient of Variation 12.8 % (11.5-14.5) Immature Granulocyte % (Auto) 0.3 % Immature Granulocyte # (Auto) 0.05 K/uL (0.00-0.02) Erythrocyte Sedimentation Rate 2 mm/hr (0-21) Anion Gap 5.0 mmol/L (3-11) Est Creatinine Clear Calc Drug Dose 60.2 ml/min Estimated GFR () 84.6 Estimated GFR (Non- 73.0 BUN/Creatinine Ratio 17.0 (10-20) Lactic Acid Level 1.5 mmol/L (0.4-2.0) Calcium Level 8.5 mg/dl (8.5-10.1) Magnesium Level 1.9 mg/dl (1.8-2.4) Total Bilirubin 0.5 mg/dl (0.2-1) Direct Bilirubin < 0.1 mg/dl (0-0.2) Aspartate Amino Transf (AST/SGOT) 13 U/L (15-37) Alanine Aminotransferase (ALT/SGPT) 25 U/L (12-78) Alkaline Phosphatase 63 U/L (45-117) C-Reactive Protein 2.47 mg/dl (0-0.29) Total Protein 6.6 gm/dl (6.4-8.2) Albumin 3.6 gm/dl (3.4-5.0) Lipase 133 U/L (73-393) Urine Color YELLOW Urine Appearance CLEAR (CLEAR) Urine pH 5.0 (4.5-7.5) Urine Specific [place] 1.024 (1.000-1.030) Urine Protein NEG (NEG) Urine Glucose (UA) NEG (NEG) Urine Ketones TRACE (NEG) Urine Occult Blood NEG (NEG) Urine Nitrite NEG (NEG) Urine Bilirubin NEG (NEG) Urine Urobilinogen NEG (NEG) Urine Leukocyte Esterase NEG (NEG) Laboratory results per my review. Medications Administered Medications (Trade) Dose Ordered Sig/Yuan Route Start Time Stop Time Status Last Admin Dose Admin Ondansetron HCl (Zofran Inj) 4 mg NOW STAT IV 09/01/17 21:30 09/01/17 21:33 DC 09/01/17 22:19 4 MG Sodium Chloride 1,000 ml @ 125 mls/hr Q8H STAT IV 09/01/17 21:30 09/02/17 00:32 DC 09/01/17 22:20 125 MLS/HR Hydromorphone HCl (Dilaudid Inj) 0.5 mg NOW STAT IV 09/01/17 21:54 09/01/17 21:55 DC 09/01/17 22:19 0.5 MG Ciprofloxacin (Cipro Tab) 500 mg NOW STAT PO 09/01/17 23:09 09/01/17 23:11 DC 09/01/17 23:19 500 MG Metronidazole (Flagyl Tab) 500 mg NOW STAT PO 09/01/17 23:09 09/01/17 23:11 DC 09/01/17 23:19 500 MG Hydromorphone HCl (Dilaudid Inj) 0.5 mg NOW STAT IV 09/01/17 23:23 09/01/17 23:24 DC 09/01/17 23:33 0.5 MG Acetaminophen/ Hydrocodone Bitart (Trilla 5/325mg Home Pack) 1 homepack UD ONCE PO 09/02/17 00:00 09/02/17 00:01 DC 09/01/17 23:58 1 HOMEPACK ED Course 2127: Past medical records reviewed. The patient was evaluated in room A4B. A complete history and physical examination was performed. 0: NSS 1000 ml @ 125 mls/hr IV, Zofran Inj 4 mg IV, Morphine Sulfate Inj 4 mg IV. 2153: Dilaudid Inj 0.5 mg IV. 2309: Cipro Tab 500 mg PO. 2323: Dilaudid Inj 0.5 mg IV. 0000: Trilla 5/325mg Home Pack 1 homepack PO. Medical Decision Differential diagnosis: Etiologies such as appendicitis, diverticulitis, PUD, biliary pathology, UTI, pancreatitis, obstruction, mesenteric ischemia, aortic pathology, infections, inflammatory bowel disease, renal colic, as well as others were entertained. This patient was evaluated and appeared to be in no significant distress. IV access was obtained and laboratory work was drawn. The patient was medicated with IV Dilaudid and Zofran for her discomfort. Patient was hydrated with normal saline solution. CT scan of the abdomen and pelvis was performed after records from previous visits were reviewed. CT scan today is concerning for a diverticulitis. There is no evidence of abscess or perforation. Laboratory work reveals an elevated white blood cell count of 16,000. Patient is afebrile. She was given p.o. Cipro 500 mg and p.o. Flagyl 500 mg. Patient was informed of the findings. She requested an additional dose of pain medication, she was given 0.5 mg of IV Dilaudid. The patient was discharged with a prescription for Trilla, Cipro and Flagyl. She was advised not to drink any alcohol with the Flagyl. She was given instructions regarding the diverticulitis and will follow up with gastroenterology as well as her PCP. The patient will return to the ER for worsening of symptoms or any medical concerns. Medication Reconcilliation Current Medication List: was personally reviewed by me Blood Pressure Screening Patient's blood pressure: Normal blood pressure Impression Primary Impression: Diverticulitis Scribe Attestation The scribe's documentation has been prepared under my direction and personally reviewed by me in its entirety. I confirm that the note above accurately reflects all work, treatment, procedures, and medical decision making performed by me. Departure Information Dispostion Home / Self-Care Prescriptions Hydrocodone/Acetaminophen 5MG/325MG (Trilla 5MG/325MG) Tab 1 TABLET PO q4-6 hr Y for Pain, #20 TAB Prov: Nolvia Martin M.D. 09/01/17 Metronidazole (Flagyl) 500 Mg Tab 500 MG PO TID, #21 TAB Prov: Nolvia Martin M.D. 09/01/17 Ciprofloxacin Hcl (CIPRO) 500 Mg Tab 500 MG PO BID, #14 TAB Prov: Nolvia Martin M.D. 09/01/17 Referrals Jamey Sierra M.D. (PCP) Saida Paz M.D. Forms Call Back Authorization, HOME CARE DOCUMENTATION FORM, IMPORTANT VISIT INFORMATION Patient Instructions My [facility] Additional Instructions Diagnosis: Diverticulitis Cipro 500 mg twice daily for 7 days. Flagyl 500 mg three times daily for 7 days. Trilla 1 tab every 4-6 hours as needed for severe pain, do not drive or take tylenol with this medication. Drink plenty of fluids. Follow up with your PCP this week and GI for colonoscopy in the next several weeks. Return to the ED for worsening of symptoms or any medical concerns.
[2017-09-01 21:52] LABS: BASO % 0.1 %; BASO ABS # 0.02 K/uL (0-0.2); EOS % 1.5 %; EOS ABS # 0.25 K/uL (0-0.5); HEMATOCRIT 36.6 % (37-47); HEMOGLOBIN 12.6 g/dL (12.0-16.0); IG# 0.05 K/uL (0.00-0.02); LYMPH % 11.7 %; LYMPH ABS # 1.94 K/uL (1.2-3.4); MEAN CELL VOLUME 90.8 fL (80-100); MEAN CORPUSCULAR HEMOGLOBIN 31.3 pg (25-34); MEAN CORPUSCULAR HGB CONC 34.4 g/dl (32-36); MONO % 9.3 %; MONO ABS # 1.55 K/uL (0.11-0.59); NEUT % 77.1 %; PLATELET COUNT 261 K/uL (130-400); RED CELL DISTRIBUTION WIDTH CV 12.8 % (11.5-14.5); RED CELL DISTRIBUTION WIDTH SD 42.5 fL (36.4-46.3); WHITE BLOOD COUNT 16.61 K/uL (4.8-10.8)
[2017-09-01] MEDS ORDERED: HYDROmorphone INJ 0.5 MG/0.5 ML SYR IV STA ×2 (21:54→23:23)
[2017-09-01] MEDS ORDERED: OPTIRAY 320 IV PRN (22:00)
[2017-09-01 22:09] LABS: ALBUMIN 3.6 gm/dl (3.4-5.0); ALT/SGPT 25 U/L (12-78); BLOOD UREA NITROGEN 14 mg/dl (7-18); CALCIUM 8.5 mg/dl (8.5-10.1); CARBON DIOXIDE 26 mmol/L (21-32); CREATININE 0.82 mg/dl (0.60-1.20); GLUCOSE 86 mg/dl (70-99); LIPASE 133 U/L (73-393); POTASSIUM 3.7 mmol/L (3.5-5.1); SODIUM 138 mmol/L (136-145)
[2017-09-01 22:13] LABS: ALKALINE PHOSPHATASE 63 U/L (45-117); AST/SGOT 13 U/L (15-37); TOTAL PROTEIN 6.6 gm/dl (6.4-8.2)
[2017-09-01 22:22] VITALS: BP 153/73
--- NOTE | 2017-09-01 22:42 | DIAGNOSTIC IMAGING REPORT ---
CT ABD/PELVIS IV CONTRAST ONLY CLINICAL HISTORY: Worsening lower abdominal pain COMPARISON STUDY: 08/24/2017 TECHNIQUE: Following the IV administration of 116 mL of Optiray-320, CT scan of the abdomen and pelvis was performed from the lung bases to the proximal femurs. Images are reviewed in the axial, sagittal, and coronal planes. IV contrast was administered without complication. A dose lowering technique was utilized adhering to the principles of ALARA. CT DOSE: 316.75 mGy.cm FINDINGS: Lower chest: There are bilateral breast implants. There is a hiatal hernia. There are bibasilar atelectatic changes. Liver: The contrast-enhanced liver is normal in size, contour, and attenuation. There is no intrahepatic biliary ductal dilatation. The hepatic veins and portal veins are patent. Gallbladder: Unremarkable. Spleen: Normal in size and attenuation. Pancreas: Unremarkable. Adrenal glands: Unremarkable. Kidneys: There is left renal cortical scarring. There is no hydronephrosis. There is a 4 mm left renal cyst. No solid renal masses are visualized. Bowel: There are no transition zones indicate bowel obstruction. The appendix appears normal. There is colonic diverticulosis. There is trace fluid adjacent to the colon at the descending sigmoid junction. There is equivocal minor infiltration of the pericolonic fat. Minimal diverticulitis must be considered. Peritoneum: There is no intraperitoneal free air or abdominal ascites. There are postsurgical changes of anterior abdominal wall hernia repair Vasculature: The abdominal aorta is normal in course and caliber. Adenopathy: None. Pelvic viscera: The bladder, and pelvic viscera are unremarkable. Skeletal structures: No destructive osseous lesions are seen. IMPRESSION: 1. No evidence of bowel obstruction. No evidence of free air 2. Hiatal hernia 3. Normal appendix. Diverticulosis. Equivocal evidence of minimal diverticulitis Electronically signed by: Kunal Ramos M.D. 09/01/2017 10:41 PM Dictated Date/Time: 09/01/2017 10:35 PM
[2017-09-01] MEDS ORDERED: METRONIDAZOLE 250 MG TAB PO STA (23:09)
[2017-09-01] MEDS ORDERED: CIPROFLOXACIN 500 MG TAB PO STA (23:09)
[2017-09-01] MEDS ORDERED: HYDR-5688 PO (23:51)
[2017-09-01] MEDS ORDERED: METR-163 PO (23:51)
[2017-09-01] MEDS ORDERED: CIPR-255 PO (23:51)
[2017-09-02] MEDS ORDERED: NORCO 5/325MG HOME PACK PO ONE
[2017-09-02 00:04] VITALS: PULSE 63; O2SAT 94
== END 2017-09-02 00:04 | disposition home or self-care (01) ==
LOC: C.EDB 20:43 → C.EDA 09-02 00:04
DX: K57.92 Diverticulitis of intestine, part unspecified, without perforation or abscess without bleeding (principal); K44.9 Diaphragmatic hernia without obstruction or gangrene; Z79.899 Other long term (current) drug therapy; Z79.82 Long term (current) use of aspirin

== ENCOUNTER 2017-09-05 07:06 | Inpatient (IN) | payer OTHER ==
[~2017-09-05] VITALS: Ht 157.5 cm; Wt 70.2 kg
[~2017-09-05 07:06] MED LIST changes: -AMOX875T PO; +CIPR-255 PO; +HYDR-5688 PO; +METR-163 PO
[2017-09-05] MEDS ORDERED: SODIUM CHLORIDE 0.9% 1000ML 1,000 ML IV STA (07:43)
[2017-09-05] MEDS ORDERED: MoRPHine SULFATE 4 MG/ML 1 ML CARP\\VIAL IV STA (07:43)
[2017-09-05 08:12] LABS: BASO % 0.2 %; BASO ABS # 0.02 K/uL (0-0.2); EOS % 0.5 %; EOS ABS # 0.07 K/uL (0-0.5); HEMATOCRIT 37.2 % (37-47); HEMOGLOBIN 13.3 g/dL (12.0-16.0); IG# 0.04 K/uL (0.00-0.02); LYMPH ABS # 1.92 K/uL (1.2-3.4); MEAN CELL VOLUME 87.9 fL (80-100); MEAN CORPUSCULAR HEMOGLOBIN 31.4 pg (25-34); MEAN CORPUSCULAR HGB CONC 35.8 g/dl (32-36); MEAN PLATELET VOLUME 9.6 fL (7.4-10.4); MONO % 9.5 %; MONO ABS # 1.22 K/uL (0.11-0.59); NEUT % 74.5 %; NEUT ABS # 9.52 K/uL (1.4-6.5); PLATELET COUNT 269 K/uL (130-400); RED CELL DISTRIBUTION WIDTH CV 12.6 % (11.5-14.5); RED CELL DISTRIBUTION WIDTH SD 40.3 fL (36.4-46.3); WHITE BLOOD COUNT 12.79 K/uL (4.8-10.8)
[2017-09-05] MEDS ORDERED: OPTIRAY 320 IV PRN (08:15)
[2017-09-05] MEDS ORDERED: KETOROLAC TROMETHAMINE 30 MG/ML VIAL IV STA (08:22)
[2017-09-05 08:30] LABS: ALBUMIN 3.7 gm/dl (3.4-5.0); ALT/SGPT 24 U/L (12-78); BLOOD UREA NITROGEN 11 mg/dl (7-18); CARBON DIOXIDE 26 mmol/L (21-32); CREATININE 0.68 mg/dl (0.60-1.20); GLUCOSE 112 mg/dl (70-99); LIPASE 129 U/L (73-393); POTASSIUM 3.7 mmol/L (3.5-5.1); SODIUM 132 mmol/L (136-145)
[2017-09-05 08:33] LABS: ALKALINE PHOSPHATASE 64 U/L (45-117); AST/SGOT 20 U/L (15-37); TOTAL PROTEIN 7.1 gm/dl (6.4-8.2)
--- NOTE | 2017-09-05 09:20 | DIAGNOSTIC IMAGING REPORT ---
HEAD WITHOUT CONTRAST (CT) CLINICAL HISTORY: 67 years-old Female with fall w ams . Acute fall with altered mental status TECHNIQUE: Multiple axial CT images of the head were obtained without contrast. A dose lowering technique was utilized adhering to the principles of ALARA. COMPARISON: CT head 08/24/2017. FINDINGS: No acute intracranial hemorrhage, midline shift, intracranial mass, hydrocephalus, territorial ischemia or abnormal extra-axial collection. Mild atrophy. Ill-defined areas of low-attenuation within the periventricular white matter suggesting chronic microvascular ischemic changes. Senescent calcifications of the lentiform nuclei are noted. Vascular calcifications are seen at the level of the skull base. The calvarium is intact. There is complete opacification of the left maxillary sinus suggesting chronic sinus disease. The remaining paranasal sinuses are clear. Soft tissues and orbits are unremarkable. IMPRESSION: No acute intracranial abnormality. The above report was generated using voice recognition software. It may contain grammatical, syntax or spelling errors. Electronically signed by: Azam Landon M.D. 09/05/2017 9:19 AM Dictated Date/Time: 09/05/2017 9:17 AM
--- NOTE | 2017-09-05 09:38 | DIAGNOSTIC IMAGING REPORT ---
ABDOMEN AND PELVIS CT WITH IV CONTRAST CT DOSE: 1380.53 mGycm HISTORY: Acute right flank pain and bruising status post fall fall r flank pain w/ brusing TECHNIQUE: Multiaxial CT images of the abdomen and pelvis were performed following the use of intravenous contrast. A dose lowering technique was utilized adhering to the principles of ALARA. COMPARISON STUDY: CT abdomen and pelvis 09/01/2017 FINDINGS: Subsegmental bibasilar atelectasis with 5 mm nodular opacity of the first segment lingula, unchanged and likely reflecting additional area of scarring. The liver, gallbladder, spleen, pancreas and right adrenal gland are unremarkable. Mild nodular thickening of the left adrenal gland within an indeterminate 9 mm soft tissue attenuating lesion. Multiple areas of cortical thinning and probable scarring involves left kidney. Subcentimeter low attenuating lesions are too small to characterize within the kidneys however suggest renal cysts. No renal calculi or obstructive uropathy. Ureters and urinary bladder are within normal limits. No evidence of acute solid organ injury. Uterus and adnexa are unremarkable. Tortuosity and mild to moderate atherosclerosis of the aorta without aneurysm. No bulky adenopathy. Small sliding-type hiatal hernia. No bowel obstruction. Moderate colonic diverticulosis with mild wall thickening of the mid to distal sigmoid colon redemonstrated. These findings appear unchanged from comparison with slightly decreased inflammatory changes. Moderate stool volume throughout the transverse colon. Normal appendix. Postoperative changes from ventral abdominal wall herniorrhaphy. Bilateral breast augmentation devices are partially imaged. Levoscoliosis of the lumbar spine. Multilevel degenerative changes about the spine. No acute rib fracture identified. IMPRESSION: 1. No acute intra-abdominal or intrapelvic abnormality identified, specifically there is no evidence of acute solid organ injury or acute rib fracture. 2. Small sliding-type hiatal hernia. 3. Mild wall thickening of the mid to distal sigmoid colon with sigmoid diverticular disease. Correlate clinically to exclude a mild colitis or mild diverticulitis. Electronically signed by: Azam Landon M.D. 09/05/2017 9:37 AM Dictated Date/Time: 09/05/2017 9:28 AM
[2017-09-05] MEDS ORDERED: HYDROmorphone INJ 1 MG/ML SYR ONE (10:54)
[2017-09-05] MEDS ORDERED: ZOLPIDEM TARTRATE 5 MG TAB PO PRN ×2 (11:15)
[2017-09-05] MEDS ORDERED: MAGNESIUM HYDROXIDE SUSP 30 ML UDC PO PRN (11:15)
[2017-09-05] MEDS ORDERED: ALUMINUM/MAGNESIUM/SIMETH (MAALOX MAX) 30 ML UDC PO PRN (11:15)
[2017-09-05] MEDS ORDERED: ONDANSETRON INJ 2 MG/ML 2 ML VIAL IV PRN (11:15)
[2017-09-05] MEDS ORDERED: ACETAMINOPHEN 325 MG TAB PO PRN (11:15)
[2017-09-05 11:40] LABS: PTT PATIENT 25.8 SECONDS (21.0-31.0)
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
[2017-09-05] MEDS ORDERED: POLYETHYLENE (MIRALAX) 17 GM PACK PO PRN (13:00)
[2017-09-05 13:10] VITALS: BP 148/75; PULSE 61; TEMP 37; O2SAT 97
[2017-09-05] MEDS: METRONIDAZOLE / NSS 500 MG in PREMIXED NSS 100 ML IV SCH ×2 (13:51→21:30)
[2017-09-05] MEDS: CIPROFLOXACIN / D5W 400 MG in PREMIXED IN D5W 200 ML IV SCH (13:51)
[2017-09-05] MEDS: SODIUM CHLORIDE 0.9% 1000ML 1,000 ML IV SCH (13:51)
[2017-09-05 15:17] VITALS: BP 148/82; PULSE 65; TEMP 36.7; O2SAT 96
[2017-09-05] MEDS: HYDROmorphone INJ 1 MG/ML SYR IV PRN ×2 (15:23→21:25)
[2017-09-05 15:31] VITALS: Ht 157.5 cm; Wt 70.2 kg
--- NOTE | 2017-09-05 15:33 | EMERGENCY ROOM VISIT NOTE ---
History Report prepared by Varun: Santiago Luna Under the Supervision of: Dr. Alexei Dodson D.O. First contact with patient: 07:14 Chief Complaint: CONFUSION Stated Complaint: DISORIENTED,ABDOMINAL PAIN Nursing Triage Summary: Disorientation. Abominal pain. History of Present Illness The patient is a 67 year old female who presents to the Emergency Room with complaints of persistent lower abdominal pain that started around 3 weeks ago. The patient states that she has been here 4 times this week for the pain, and the pain has been so bad that she cannot stand up at times. She notes that this is one of the sharpest pains that she has ever had, and it is a cramping pain. Per the patient's , the patient has had a lot of tests here which were negative, but is being treated for diverticulitis. The patient states that whenever she eats anything, 5 seconds later her pain "goes crazy". She says that it is one of the sharpest pains she has ever had. The patient says that the pain is still the same as when it first started. The patient adds that she started having right flank pain yesterday however. She denies any recent falls or injuries. The patient's did not see the patient fall either. The patient notes that she traveled to [facility] 4 weeks ago, and the pain started a week after she came back. The patient states that she had some diarrhea during the onset of the pain, but now the stool is just "mucousy". She says that she vomited once after she first took Cipro and Flagyl, but she has not vomited since then ever since she was given anti-nausea medication. Per the patient's , the patient started getting confused last night, and she did not know where she was and could not find the bathroom. She was still noted to be rather confused upon waking this morning. The patient has had episodes of confusion in the past, after taking too many sleeping medications, but after waking up in the morning she would be fine, but this morning she was not fine. The patient denies any fevers, cough, runny nose, sore throat, chest pain, nausea, or pain or burning with urination. The patient has a history of breast cancer and had abdominal surgery associated with that, but that is her only past abdominal surgery. The patient notes no other medical problems. The patient was here yesterday and had a CT which was unimpressive for diverticulitis. She was here on the and had bibasilar opacities in her lungs. Her stool was negative for ova and parasites, and her urine was negative, in addition to her E. coli, salmonella, and shiga. Source of History: patient, spouse/significant other Onset: Around 3 weeks ago Position: abdomen (lower) Quality: sharp Timing: other (persistent) Modifying Factors (Worsening): eating Associated Symptoms: No fevers, No sorethroat, No cough, No chest pain, No nausea, No diarrhea (but stool is mucousy), No urinary symptoms Note: Associated symptoms: Right flank pain started yesterday. Confusion started last night. Denies runny nose. Review of Systems See HPI for pertinent positives & negatives. A total of 10 systems reviewed and were otherwise negative. Past Medical & Surgical Medical Problems: (1) Colitis (2) Right Knee DJD Surgical Problems: (1) H/O breast surgery Family History Not known due to adoption Social History Smoking Status: Never Smoker Alcohol Use: occasionally Drug Use: none Marital Status: Housing Status: lives with significant other Occupation Status: unemployed Current/Historical Medications Scheduled Aspirin (Aspirin Ec), 325 MG PO DAILY Ciprofloxacin Hcl (Cipro), 500 MG PO BID Esomeprazole Magnesium (Nexium), 40 MG PO QAM Ezetimibe (Zetia), 10 MG PO QAM Metoprolol Succ (Toprol Xl) (Toprol-Xl), 50 MG PO QAM Metronidazole (Flagyl), 500 MG PO TID Ondasetron Odt (Zofran Odt), 4 MG SL Q6H Rosuvastatin Calcium (Crestor), 40 MG PO QAM Scheduled PRN Hydrocodone/Acetaminophen 5MG/325MG ([place] 5MG/325MG), 1 TABLET PO q4-6 hr PRN for Pain Allergies Coded Allergies: Bisphosphonates (Verified Adverse Reaction, Unknown, INTOLERANT-STOMACH AND CHEST PAINS, 09/05/17) Physical Exam Vital Signs Date Time Temp Pulse Resp B/P (MAP) Pulse Ox O2 Delivery O2 Flow Rate FiO2 09/05/17 10:25 76 18 150/79 96 Room Air 09/05/17 09:16 36.9 76 18 150/79 96 Room Air 09/05/17 08:13 80 157/86 95 Room Air 09/05/17 07:17 36.9 92 18 177/122 95 Room Air Physical Exam GENERAL: Sitting up in bed, slightly ill-appearing and disoriented, no acute distress. EYE EXAM: normal conjunctiva. PERRL and EOM's intact. OROPHARYNX: no exudate, no erythema, lips, buccal mucosa, and tongue normal and mucous membranes are moist NECK: supple, no nuchal rigidity, no adenopathy, non-tender LUNGS: Clear to auscultation. Normal chest wall mechanics HEART: no murmurs, S1 normal and S2 normal ABDOMEN: Bruising and tenderness along right flank, minimal lower abdominal pain when distracted. Abdomen soft, normo-active bowel sounds, no masses, no rebound or guarding. BACK: Back is symmetrical on inspection and there is no deformity, no midline tenderness, no CVA tenderness. SKIN: no rashes and no bruising UPPER EXTREMITIES: upper extremities are grossly normal. LOWER EXTREMITIES: No pitting edema. NEURO EXAM: Alert, intermittently confused to history and recent events. Not oriented to year but following commands. Cranial nerves II-XII intact, normal speech, no weakness of arms, no weakness of legs. No drift. Gross sensation intact. Medical Decision & Procedures ER Provider Diagnostic Interpretation: CT results as stated below per my review and the radiologist's interpretation: HEAD WITHOUT CONTRAST (CT) CLINICAL HISTORY: 67 years-old Female with fall w ams . Acute fall with altered mental status TECHNIQUE: Multiple axial CT images of the head were obtained without contrast. A dose lowering technique was utilized adhering to the principles of ALARA. COMPARISON: CT head 08/24/2017. FINDINGS: No acute intracranial hemorrhage, midline shift, intracranial mass, hydrocephalus, territorial ischemia or abnormal extra-axial collection. Mild atrophy. Ill-defined areas of low-attenuation within the periventricular white matter suggesting chronic microvascular ischemic changes. Senescent calcifications of the lentiform nuclei are noted. Vascular calcifications are seen at the level of the skull base. The calvarium is intact. There is complete opacification of the left maxillary sinus suggesting chronic sinus disease. The remaining paranasal sinuses are clear. Soft tissues and orbits are unremarkable. IMPRESSION: No acute intracranial abnormality. The above report was generated using voice recognition software. It may contain grammatical, syntax or spelling errors. Electronically signed by: Azam Landon M.D. 09/05/2017 9:19 AM Dictated Date/Time: 09/05/2017 9:17 AM ABDOMEN AND PELVIS CT WITH IV CONTRAST CT DOSE: 1380.53 mGycm HISTORY: Acute right flank pain and bruising status post fall fall r flank pain w/ brusing TECHNIQUE: Multiaxial CT images of the abdomen and pelvis were performed following the use of intravenous contrast. A dose lowering technique was utilized adhering to the principles of ALARA. COMPARISON STUDY: CT abdomen and pelvis 09/01/2017 FINDINGS: Subsegmental bibasilar atelectasis with 5 mm nodular opacity of the first segment lingula, unchanged and likely reflecting additional area of scarring. The liver, gallbladder, spleen, pancreas and right adrenal gland are unremarkable. Mild nodular thickening of the left adrenal gland within an indeterminate 9 mm soft tissue attenuating lesion. Multiple areas of cortical thinning and probable scarring involves left kidney. Subcentimeter low attenuating lesions are too small to characterize within the kidneys however suggest renal cysts. No renal calculi or obstructive uropathy. Ureters and urinary bladder are within normal limits. No evidence of acute solid organ injury. Uterus and adnexa are unremarkable. Tortuosity and mild to moderate atherosclerosis of the aorta without aneurysm. No bulky adenopathy. Small sliding-type hiatal hernia. No bowel obstruction. Moderate colonic diverticulosis with mild wall thickening of the mid to distal sigmoid colon redemonstrated. These findings appear unchanged from comparison with slightly decreased inflammatory changes. Moderate stool volume throughout the transverse colon. Normal appendix. Postoperative changes from ventral abdominal wall herniorrhaphy. Bilateral breast augmentation devices are partially imaged. Levoscoliosis of the lumbar spine. Multilevel degenerative changes about the spine. No acute rib fracture identified. IMPRESSION: 1. No acute intra-abdominal or intrapelvic abnormality identified, specifically there is no evidence of acute solid organ injury or acute rib fracture. 2. Small sliding-type hiatal hernia. 3. Mild wall thickening of the mid to distal sigmoid colon with sigmoid diverticular disease. Correlate clinically to exclude a mild colitis or mild diverticulitis. Electronically signed by: Azam Landon M.D. 09/05/2017 9:37 AM Dictated Date/Time: 09/05/2017 9:28 AM Laboratory Results 09/05/17 08:00 Red Blood Count 4.23, Mean Corpuscular Volume 87.9, Mean Corpuscular Hemoglobin 31.4, Mean Corpuscular Hemoglobin Concent 35.8, Mean Platelet Volume 9.6, Neutrophils (%) (Auto) 74.5, Lymphocytes (%) (Auto) 15.0, Monocytes (%) (Auto) 9.5, Eosinophils (%) (Auto) 0.5, Basophils (%) (Auto) 0.2, Neutrophils # (Auto) 9.52, Lymphocytes # (Auto) 1.92, Monocytes # (Auto) 1.22, Eosinophils # (Auto) 0.07, Basophils # (Auto) 0.02 09/05/17 08:00 Test 09/05/17 08:00 09/05/17 08:40 White Blood Count 12.79 K/uL (4.8-10.8) Red Blood Count 4.23 M/uL (4.2-5.4) Hemoglobin 13.3 g/dL (12.0-16.0) Hematocrit 37.2 % (37-47) Mean Corpuscular Volume 87.9 fL (80-100) Mean Corpuscular Hemoglobin 31.4 pg (25-34) Mean Corpuscular Hemoglobin Concent 35.8 g/dl (32-36) Platelet Count 269 K/uL (130-400) Mean Platelet Volume 9.6 fL (7.4-10.4) Neutrophils (%) (Auto) 74.5 % Lymphocytes (%) (Auto) 15.0 % Monocytes (%) (Auto) 9.5 % Eosinophils (%) (Auto) 0.5 % Basophils (%) (Auto) 0.2 % Neutrophils # (Auto) 9.52 K/uL (1.4-6.5) Lymphocytes # (Auto) 1.92 K/uL (1.2-3.4) Monocytes # (Auto) 1.22 K/uL (0.11-0.59) Eosinophils # (Auto) 0.07 K/uL (0-0.5) Basophils # (Auto) 0.02 K/uL (0-0.2) RDW Standard Deviation 40.3 fL (36.4-46.3) RDW Coefficient of Variation 12.6 % (11.5-14.5) Immature Granulocyte % (Auto) 0.3 % Immature Granulocyte # (Auto) 0.04 K/uL (0.00-0.02) Nucleated RBC Absolute Count (auto) 0.00 K/uL (0-0) Nucleated Red Blood Cells % 0.0 % Peripheral Blood Smear Path Consult Erythrocyte Sedimentation Rate 6 mm/hr (0-21) Prothrombin Time 10.7 SECONDS (9.0-12.0) Prothromb Time International Ratio 1.0 (0.9-1.1) Activated Partial Thromboplast Time 25.8 SECONDS (21.0-31.0) Partial Thromboplastin Ratio 1.0 Anion Gap 7.0 mmol/L (3-11) Est Creatinine Clear Calc Drug Dose 71.7 ml/min Estimated GFR () 103.4 Estimated GFR (Non- 89.2 BUN/Creatinine Ratio 15.8 (10-20) Calcium Level 9.0 mg/dl (8.5-10.1) Total Bilirubin 0.4 mg/dl (0.2-1) Direct Bilirubin < 0.1 mg/dl (0-0.2) Aspartate Amino Transf (AST/SGOT) 20 U/L (15-37) Alanine Aminotransferase (ALT/SGPT) 24 U/L (12-78) Alkaline Phosphatase 64 U/L (45-117) C-Reactive Protein 1.27 mg/dl (0-0.29) Total Protein 7.1 gm/dl (6.4-8.2) Albumin 3.7 gm/dl (3.4-5.0) Lipase 129 U/L (73-393) Procalcitonin < 0.05 ng/ml (0-0.5) Urine Color YELLOW Urine Appearance CLEAR (CLEAR) Urine pH 6.5 (4.5-7.5) Urine Specific [place] 1.010 (1.000-1.030) Urine Protein NEG (NEG) Urine Glucose (UA) NEG (NEG) Urine Ketones 2+ (NEG) Urine Occult Blood NEG (NEG) Urine Nitrite NEG (NEG) Urine Bilirubin NEG (NEG) Urine Urobilinogen NEG (NEG) Urine Leukocyte Esterase TRACE (NEG) Urine WBC (Auto) 1-5 /hpf (0-5) Urine RBC (Auto) 0-4 /hpf (0-4) Urine Hyaline Casts (Auto) 0 /lpf (0-5) Urine Epithelial Cells (Auto) 5-10 /lpf (0-5) Urine Bacteria (Auto) NEG (NEG) Laboratory results per my review. Medications Administered Medications (Trade) Dose Ordered Sig/Yuan Route Start Time Stop Time Status Last Admin Dose Admin Sodium Chloride 1,000 ml @ 999 mls/hr Q1H1M STAT IV 09/05/17 07:43 09/05/17 08:43 DC 09/05/17 08:04 999 MLS/HR Ketorolac Tromethamine (Toradol Inj) 30 mg NOW STAT IV 09/05/17 08:22 09/05/17 08:23 DC 09/05/17 08:26 30 MG Hydromorphone HCl (Dilaudid Inj) 1 mg Q4H PRN IV 09/05/17 11:00 09/19/17 10:59 09/05/17 15:23 1 MG Hydromorphone HCl (Dilaudid Inj) 1 mg STK-MED ONCE .ROUTE 09/05/17 10:54 09/05/17 10:55 DC 09/05/17 10:56 1 MG ED Course ED COURSE: Vital signs were reviewed and showed hypertensive situational vitals. The patients medical record was reviewed The above diagnostic studies were performed and reviewed. ED treatments and interventions as stated above. 0728: The patient was evaluated in room B10. A complete history and physical examination was performed. 0743: Morphine Sulfate Inj 4 mg IV, NSS 1000 ml @ 999 mls/hr IV. 0822: I reevaluated the patient and she is requesting Dilaudid. I offered Toradol or Morphine due to confusion. She was eventually agreeable. Ordered Toradol Inj 30 mg IV. 0906: I reevaluated the patient and she is doing okay. She is updated. 0959: Upon reevaluation, the patient is resting.I discussed my findings with the patient and she understands and agrees with the treatment plan. Based on the patients age, coexisting illnesses, exam and lab findings the decision to treat as an inpatient was made. The patient remained stable while under my care. The patient will be evaluated for further management. 1022: I reviewed the patient's case with [place]. [place]argas [place] [facility] [place]. He will evaluate the patient for further management. Medical Decision Differential diagnoses includes but is not limited to toxic, metabolic, infectious, traumatic, cardiac, neurologic, hematologic, psychiatric and inflammatory etiologies. Patient is a 67-year-old female who presents the ER for abdominal pain. She has been seen here multiple times for the same complaint. She was seen here on the and had a CT of the abdomen and pelvis which showed questionable diverticulitis. She is placed on Cipro and Flagyl. notes that on the past 24 hours she has been confused. CBC shows a mild leukocytosis. BMP along with LFTs, bilirubin and lipase was unremarkable. CRP and sed were unremarkable as well. UA negative. When distracted she has minimal to no abdominal pain. I did give her IV morphine and Toradol. She requested Dilaudid on 2 separate occasions which I did declined as she was slightly confused and did not want to make the situation worse. I did repeat the CT of her abdomen due to the bruising and I was concerned for intra-abdominal traumatic injury. CT was not significantly changed. was updated at bedside. With her multiple recurrent visits and the confusion today I felt was reasonable to discuss with internal medicine for observation. They are agreeable. Medication Reconcilliation Current Medication List: was personally reviewed by me Blood Pressure Screening Patient's blood pressure: Elevated blood pressure Blood pressure disposition: Elevated BP felt to be situational Consults Time Called: 1020 Consulting Physician: Dr. Alicia ARROYO hospitalist Returned Call: 1022 I reviewed the patient's case with Dr. Alicia ARROYO hospitalist. He will evaluate the patient for further management. Impression Primary Impression: Confusion Additional Impressions: Abdominal pain Colitis Scribe Attestation The scribe's documentation has been prepared under my direction and personally reviewed by me in its entirety. I confirm that the note above accurately reflects all work, treatment, procedures, and medical decision making performed by me. Departure Information Dispostion Being Evaluated By Hospitalist Referrals Jamey Sierra M.D. (PCP) Patient Instructions My [facility] Problem Qualifiers Additional Impressions: Abdominal pain Abdominal location: lower abdomen, unspecified Qualified Codes: R10.30 - Lower abdominal pain, unspecified
--- NOTE | 2017-09-05 16:19 | Progress Note ---
Progress Note Date of Service Sep 05, 2017. Progress Note ID Consult Dictated #[id number] A/P: 1. Diarrhea - recent travel -Follow cultures, stool studies, suggest HAV testing as well -Continue abx -Follow sigmoidoscopy on friday, await results
--- NOTE | 2017-09-05 16:45 | INFECT. DISEASE CONSULTATION ---
DATE OF CONSULTATION: 09/05/2017 HISTORY OF PRESENT ILLNESS: This is a 67-year-old female who was admitted to the hospital after she had bloody mucousy stool. 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 She was given a Malarone, but she did not complete her Malarone. She has not previously had typhoid or hepatitis A vaccination. On return in early August, she had crampy lower abdominal pain and was having some diarrhea associated with this. She did come to the ER first time on August 20. She has had multiple trips to the ER, most recently on the . On the , she had a CAT scan of the abdomen and pelvis, which showed equivocal colitis. She was given a short course of Cipro and Flagyl recently and she completed that and she did have an episode of vomiting after Flagyl, but then felt better. She was feeling somewhat better and her diarrhea resolved; however, it returned yesterday and she noticed some blood in her stool. She had a repeat CAT scan, which showed mild thickening of the sigmoid colon. She was seen by GI and she is scheduled for sigmoidoscopy on Friday. She is currently n.p.o. Her previous stool cultures, ova and parasites and typhoid studies were negative. She also had a peripheral smear, which was negative for parasites. Her white blood cell count today is 12.7. Her sed rate is normal at 6. She was restarted on Cipro and Flagyl and is tolerating them well. She is currently afebrile and states she has been afebrile at home. She is able to eat and drink at home, but she does have a poor appetite. She states no one else on the trip is suffering the same symptoms. She denies any jaundice. She denies any chest pain, cough or shortness of breath. She denies any arthralgias, myalgias or rashes. She does not recall any insect bites well away. She is tolerating antibiotics well. Blood cultures are pending. PAST MEDICAL HISTORY: Significant for hypertension and high cholesterol. She has degenerative joint disease and diverticulitis. PAST SURGICAL HISTORY: Significant for breast surgery. She has had a colonoscopy 8 years ago. She did have some polyps, which were biopsied and benign, but she did suffer a microperforation as a complication from that. FAMILY HISTORY: Noncontributory. SOCIAL HISTORY: Negative for tobacco use, alcohol use or drug use. Her family members are present and there are no recent sick contacts. ALLERGIES: INCLUDE BISPHOSPHONATE. MEDICATIONS: Include aspirin, Zetia, Toprol-XL, Crestor, Lovenox, Zofran, famotidine, Cipro, Flagyl, MiraLax, Percocet, Tylenol, Maalox, milk of magnesia, Ambien, Zofran, and Dilaudid. PHYSICAL EXAMINATION: VITAL SIGNS: She is afebrile, pulse 65, respiratory rate 18, blood pressure 148/82, and oxygen saturation is 96% on room air. GENERAL: She is awake, alert and oriented x3. She is in no acute distress. HEENT: Mucous membranes are moist. Extraocular muscles are intact. HEART: Regular. LUNGS: Clear. ABDOMEN: Soft, nontender, and nondistended. There is no lower extremity edema. SKIN: Without rash. LABORATORY STUDIES: CBC reveals a white blood cell count of 12.7, hemoglobin 13.3, and platelets are 269. Sed rate is 6. Chemistry panel reveals a sodium of 132, potassium 3.7, chloride 99, bicarbonate 26, BUN 11, creatinine 0.6, and glucose is 112. LFTs are within normal limits. CRP is 1.2. A procalcitonin is negative. Urinalysis is negative. Blood cultures are pending. CT is as above. Review of previous micro parasitology blood smear on the 15 is negative. Urine culture on the is negative. A stool culture on the is negative. A urine culture on the was negative. Her previous white count on the was 16.6. She has not had elevated LFTs. Her CRP is improved from 2.4 on the 19th. Again, ova and parasites is negative. Parasite testing for cryptosporidium and cyclospora were not done specifically. No repeat stool culture has been obtained. AFB culture is pending. A C. diff is pending. Stool culture had not been obtained. ASSESSMENT: Acute diarrheal illness. This certainly could be traveler's diarrhea. She has had recent negative testing and this will be repeated. She will remain on empiric antibiotics. A colonoscopy is scheduled for next week. Additional testing for hepatitis A would be recommended as well. Thank you for this consultation.
[2017-09-05] MEDS: ONDANSETRON 4MG OD TAB SL SCH (17:06)
[2017-09-05] MEDS ORDERED: FAMOTIDINE IV INJ 20 MG in SYRINGE 3 ML IV SCH (18:00)
[2017-09-05] MEDS ORDERED: FAMOTIDINE IV INJ 20 MG in DEXTROSE 5% 100ML 100 ML IV SCH (18:00)
--- NOTE | 2017-09-05 20:03 | GASTROINTESTINAL CONSULTATION ---
DATE OF CONSULTATION: 09/05/2017 CHIEF COMPLAINT: Lower abdominal pain, diffuse abdominal pain, abnormal CT findings, mucus in the stool. HISTORY OF PRESENT ILLNESS: Ms. Bojorquez is a 67-year-old white female who recently in early August travelled to [facility] for 10 days. Although she did not experience any GI symptoms while abroad, upon return a week later, she began to develop diffuse abdominal pain mostly in the lower abdomen, but also in the upper epigastrium with a pattern of loose stools and mucus production that was slightly bloody. She had several stool studies as an outpatient which by her recollection are unrevealing and has had several trips to the Emergency Room for the same discomfort for which nothing could be identified. She had imaging studies on each of these visits according to the patient, although I can only see access to one set of studies abdominal CT and head CT from 09/05/2017. On this CT scan, there was evidence of mild wall thickening in the mid to distal sigmoid colon with sigmoid diverticular disease. Clinical correlation to exclude mild colitis or mild diverticulitis is to be considered. There are no masses appreciated, although there is moderate stool volume throughout the colon. There is no abnormal adenopathy. A small sliding hiatal hernia was identified. There was comparison to a CT of 09/01/2017. There may be a left adrenal gland nodule of 9 mm in size. Uterus and adnexa were unremarkable. There is tortuosity to the aorta with mild to moderate atherosclerosis. Aneurysm is not identified. The patient denies any prior history of inflammatory bowel disease, chronic diarrhea, chronic abdominal pain, weight loss, nausea, vomiting or other gastrointestinal disorders. The patient was seen by [facility] several years ago for colonoscopy with some bleeding that required repeat colonoscopy. There is no personal history of colon cancer. The pain appears to be more recurrent in nature and can last for several minutes. There was a question of confusion prior to her admission today in account from the patient's . PAST MEDICAL HISTORY: Abdominal pain, arthralgia colitis, diarrhea, diverticulitis, headache, nausea sinusitis. PAST SURGICAL HISTORY: She has a history of breast cancer with breast augmentation and construction requiring abdominal fat pad placement. She has had, however, no visceral surgery by way of bowel resection or colon resection. FAMILY HISTORY: The patient is adopted, so family history is unknown. SOCIAL HISTORY: The patient denies tobacco or alcohol usage. She is . She does not currently work and is retired. ALLERGIES: SHE IS ALLERGIC TO BISPHOSPHONATES. HOME MEDICATIONS: Include aspirin, ciprofloxacin that was recently prescribed, Nexium 40 mg daily, Zetia, metoprolol, Flagyl recently prescribed, Zofran recently prescribed and Crestor which is chronic. Her two main medical histories are hypertension and hypercholesterolemia. CURRENT MEDICATIONS: Include aspirin, Zetia, metoprolol, Cipro and Flagyl IV along with Rio. REVIEW OF SYSTEMS: Otherwise noncontributory based on 13-point exam except for mentioned above. There is no report of rashes, odynophagia, dysphagia, nausea, vomiting, hematemesis or coffee-ground emesis. There is no profuse bright red blood per rectum or melena. The patient denies history of kidney stones, dysuria or hematuria. PHYSICAL EXAMINATION: VITAL SIGNS: Today, the patient is resting comfortably in bed, although with some movement she does have discomfort. She is receiving narcotic analgesics. GENERAL: The patient is awake, alert and oriented x3. HEENT: Sclerae are anicteric, conjunctiva moist. Oral mucosa moist. HEART: Normal S1, S2. LUNGS: Clear to auscultation without rales, rhonchi or wheezes. ABDOMEN: Soft, tender diffusely in areas of the epigastrium, but also in the lower abdomen regions bilaterally. There is a well-healed incision. I do not appreciate a Joya sign. There are no abdominal bruits or masses. There is no evidence of ascites or shifting dullness. There is no appreciable abdominal distention. There are positive bowel sounds. EXTREMITIES: Without clubbing, cyanosis or edema. RECTAL: Deferred. LABORATORY STUDIES: On admission this morning, white count 12.7, hemoglobin 13.3, MCV 87, platelets 269,000 and a differential that is overall normal with 74% neutrophils, 15% lymphocytes and 0.5% eosinophils. The sed rate is 6. Serum chemistries; sodium slightly low at 132, potassium 3.7, BUN and creatinine 11 and 0.68, ALT 24, AST 20, alkaline phosphatase 64, C-reactive protein is mildly elevated at 1.27, lipase 129. Procalcitonin 0.05. Urinalysis showed 2+ ketones, trace leukocyte esterase and 5-10 urine epithelial cells. There is no blood described. IMPRESSION AND PLAN: The patient with a relative acute onset of abdominal pain following return from a trip to [facility] for which she was there for 10 days. No one else on the trip had any similar illnesses. The symptoms that predominate were abdominal pain diffusely but more in the lower abdominal region, as well as diarrhea that has become more of a mucousy material that occasionally has some blood tinge to it. Overt bright red blood per rectum has not been reported by the patient. CT scan suggests areas of mild rectal wall thickening in the sigmoid region and whether or not diverticulitis is present is unclear. There is no obvious abscess or collections identified. I believe it is reasonable to continue the current course of antibiotics of Cipro and Flagyl and would maintain a minimal clear liquid intake as a diet at this time until her symptoms improved and she started to have some bowel movements consistently. If there are any fevers or shaking chills that developed then a aldana culture would be reasonable. In addition, repeating some stool studies may be helpful albeit this may be limited because of her use of Cipro and Flagyl recently and currently. At some point, a sigmoidoscopy or colonoscopy is reasonable and will plan tentatively for early next week unless overt bleeding occurs that may require earlier examination. Ischemic colitis may be possible, although the distribution of these findings on CAT scan are slightly more distal than one would expect. There is, however, some atherosclerotic plaques and certainly this may be a source. It may be reasonable to have the several reported CT scans reviewed to see if there any suggestions of vascular insufficiency or consider either mesenteric Dopplers or dedicated CTA. Would continue analgesics as you were doing. All questions answered for the patient. Thank you for allowing me to participate in this patient's care. Dr. Layne will be covering this weekend.
[2017-09-05] MEDS: ENOXAPARIN 40 MG/0.4 ML SYR SQ SCH (21:25)
[2017-09-05 23:16] VITALS: BP 126/79; PULSE 59; TEMP 36.8; O2SAT 96
[2017-09-06] MEDS: SODIUM CHLORIDE 0.9% 1000ML 1,000 ML IV SCH (04:13)
[2017-09-06 05:52] LABS: BASO % 0.4 %; BASO ABS # 0.03 K/uL (0-0.2); EOS % 4.3 %; EOS ABS # 0.33 K/uL (0-0.5); HEMATOCRIT 33.8 % (37-47); HEMOGLOBIN 11.9 g/dL (12.0-16.0); IG# 0.02 K/uL (0.00-0.02); LYMPH % 26.4 %; LYMPH ABS # 2.04 K/uL (1.2-3.4); MEAN CELL VOLUME 89.2 fL (80-100); MEAN CORPUSCULAR HEMOGLOBIN 31.4 pg (25-34); MEAN CORPUSCULAR HGB CONC 35.2 g/dl (32-36); MEAN PLATELET VOLUME 9.6 fL (7.4-10.4); MONO % 9.8 %; MONO ABS # 0.76 K/uL (0.11-0.59); NEUT % 58.8 %; NEUT ABS # 4.54 K/uL (1.4-6.5); PLATELET COUNT 246 K/uL (130-400); RED CELL DISTRIBUTION WIDTH CV 12.9 % (11.5-14.5); RED CELL DISTRIBUTION WIDTH SD 41.1 fL (36.4-46.3); WHITE BLOOD COUNT 7.72 K/uL (4.8-10.8)
[2017-09-06] MEDS: METRONIDAZOLE / NSS 500 MG in PREMIXED NSS 100 ML IV SCH ×3 (06:16→22:06)
[2017-09-06] MEDS: CIPROFLOXACIN / D5W 400 MG in PREMIXED IN D5W 200 ML IV SCH ×2 (06:26→18:32)
[2017-09-06 06:29] LABS: ALBUMIN 3.3 gm/dl (3.4-5.0); CALCIUM 8.5 mg/dl (8.5-10.1); CREATININE 0.51 mg/dl (0.60-1.20); POTASSIUM 3.3 mmol/L (3.5-5.1); TOTAL PROTEIN 6.4 gm/dl (6.4-8.2)
[2017-09-06] MEDS: ONDANSETRON 4MG OD TAB SL SCH ×5 (06:34→23:21)
[2017-09-06] MEDS: HYDROmorphone INJ 1 MG/ML SYR IV PRN ×3 (06:34→22:17)
[2017-09-06 07:40] VITALS: BP 167/81; PULSE 61; TEMP 36.4; O2SAT 95
[2017-09-06] MEDS: EZETIMIBE 10MG TAB PO SCH (08:34)
[2017-09-06] MEDS: METOPROLOL SUCC 50MG EXT REL TAB PO SCH (08:35)
[2017-09-06] MEDS: ROSUVASTATIN CALCIUM 20 MG TAB PO SCH (08:35)
[2017-09-06] MEDS: ASPIRIN 325 MG ECTAB PO SCH (08:35)
--- NOTE | 2017-09-06 08:56 | Progress Note ---
Subjective Date of Service: Sep 06, 2017. Subjective pt has had no further bowel movements, she is not pleased with Dr Layne from GI medicine and requests Dr Montenegro. Problem List Medical Problems: (1) Abdominal pain Status: Acute (2) Abdominal pain Status: Acute (3) Abdominal pain Status: Acute (4) Arthralgia Status: Acute (5) Confusion Status: Acute (6) Diarrhea Status: Acute (7) Diverticulitis Status: Acute (8) Headache Status: Acute (9) Nausea Status: Acute (10) Sinusitis Status: Acute (11) Weakness Status: Acute Review of Systems Constitutional: + weakness, + fatigue, No fever, No chills Respiratory: No cough, No shortness of breath Cardiac: No chest pain, No edema Abdomen: No pain, No nausea, No vomiting, No diarrhea Female : No dysuria, No hematuria, No incontinence Psychiatric: No depression symptoms, No anxiety Objective Vital Signs Date Time Temp Pulse Resp B/P (MAP) Pulse Ox O2 Delivery O2 Flow Rate FiO2 09/06/17 07:40 36.4 61 17 167/81 (109) 95 09/06/17 00:00 Room Air 09/05/17 23:16 36.8 59 18 126/79 (95) 96 Room Air 09/05/17 20:00 Room Air 09/05/17 15:31 Room Air 09/05/17 15:17 36.7 65 18 148/82 (104) 96 Room Air 09/05/17 13:10 37.0 61 20 148/75 (99) 97 Room Air 09/05/17 11:47 75 18 133/90 93 09/05/17 10:25 76 18 150/79 96 Room Air 09/05/17 09:16 36.9 76 18 150/79 96 Room Air Physical Exam General Appearance: WD/WN, + mild distress Eyes: normal inspection, sclerae normal Respiratory/Chest: chest non-tender, lungs clear, normal breath sounds Cardiovascular: regular rate, rhythm, no murmur Abdomen: normal bowel sounds, non tender, soft Extremities: no pedal edema, no calf tenderness Neurologic/Psychiatric: alert, oriented x 3 Laboratory Results Last 24 Hours Test 09/06/17 05:38 White Blood Count 7.72 K/uL Red Blood Count 3.79 M/uL Hemoglobin 11.9 g/dL Hematocrit 33.8 % Mean Corpuscular Volume 89.2 fL Mean Corpuscular Hemoglobin 31.4 pg Mean Corpuscular Hemoglobin Concent 35.2 g/dl Platelet Count 246 K/uL Mean Platelet Volume 9.6 fL Neutrophils (%) (Auto) 58.8 % Lymphocytes (%) (Auto) 26.4 % Monocytes (%) (Auto) 9.8 % Eosinophils (%) (Auto) 4.3 % Basophils (%) (Auto) 0.4 % Neutrophils # (Auto) 4.54 K/uL Lymphocytes # (Auto) 2.04 K/uL Monocytes # (Auto) 0.76 K/uL Eosinophils # (Auto) 0.33 K/uL Basophils # (Auto) 0.03 K/uL RDW Standard Deviation 41.1 fL RDW Coefficient of Variation 12.9 % Immature Granulocyte % (Auto) 0.3 % Immature Granulocyte # (Auto) 0.02 K/uL Prothrombin Time 10.9 SECONDS Prothromb Time International Ratio 1.0 Sodium Level 137 mmol/L Potassium Level 3.3 mmol/L Chloride Level 106 mmol/L Carbon Dioxide Level 23 mmol/L Anion Gap 8.0 mmol/L Blood Urea Nitrogen 5 mg/dl Creatinine 0.51 mg/dl Est Creatinine Clear Calc Drug Dose 95.6 ml/min Estimated GFR () 113.7 Estimated GFR (Non- 98.1 BUN/Creatinine Ratio 9.8 Random Glucose 98 mg/dl Lactic Acid Level 0.6 mmol/L Calcium Level 8.5 mg/dl Magnesium Level 2.0 mg/dl Total Bilirubin 0.5 mg/dl Aspartate Amino Transf (AST/SGOT) 21 U/L Alanine Aminotransferase (ALT/SGPT) 25 U/L Alkaline Phosphatase 53 U/L Total Protein 6.4 gm/dl Albumin 3.3 gm/dl Globulin 3.1 gm/dl Albumin/Globulin Ratio 1.1 Assessment and Plan 67-year-old female with past medical history of hypertension and dyslipidemia who 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 Pt developed encephalopathy at home and fell Mid to distal sigmoid colitis, IV hydration and cipro flagyl, stool culture, Consult GI for possible endoscopy, maybe travelers diarrhea Abdominal pain secondary to above Metabolic encephalopathy secondary to above HTn and cardiovascular risk reduction, metoprolol aspirin and zetia, hold aspirin if bleeding continues Diarrhea that evolved into mucus stool associated with some blood INcidentaly noted adrenal changes on cT scan will recommend future follow up DVT prevention is lovenox I
[2017-09-06] MEDS: POTASSIUM CHLORIDE INJ 40 MEQ in SODIUM CHLORIDE 0.9% 1000ML 1,000 ML IV SCH ×2 (09:58→22:17)
[2017-09-06] MEDS ORDERED: FAMOTIDINE IV INJ 20 MG in DEXTROSE 5% 100ML 100 ML IV SCH (10:30)
[2017-09-06] MEDS: FAMOTIDINE IV INJ 20 MG in SYRINGE 3 ML IV SCH ×2 (10:48→22:05)
--- NOTE | 2017-09-06 11:18 | Gastroenterology Progress Note ---
Progress Note Date of Service: Sep 06, 2017 Subjective Pt evaluation today including: conversation w/ patient, conversation w/ family () CC f/u abd pain HPI with patient for history. No physical done. Pt states pain the same if discounting effect of pain meds. Pain meds are helping. No BMs in 2 days and she has history of BMs every 1.5 days normally. Medications Current Inpatient Medications Medications (Trade) Dose Ordered Sig/Yuan Route Start Time Stop Time Status Last Admin Dose Admin Ioversol (Optiray 320) 100 ml UD PRN IV 09/05/17 08:15 09/09/17 08:14 Hydromorphone HCl (Dilaudid Inj) 1 mg Q4H PRN IV 09/05/17 11:00 09/19/17 10:59 09/06/17 06:34 1 MG Aspirin (Ecotrin Tab) 325 mg DAILY PO 09/06/17 08:00 10/06/17 08:59 09/06/17 08:35 325 MG EZETIMIBE (Zetia Tab) 10 mg QAM PO 09/06/17 08:00 10/06/17 08:59 09/06/17 08:34 10 MG Acetaminophen/ Hydrocodone Bitart (Alba 5/325 Tab) 1 tab Q4H PRN PO 09/05/17 11:15 09/19/17 11:14 Metoprolol Succinate (Toprol Xl Tab) 50 mg QAM PO 09/06/17 08:00 10/06/17 08:59 09/06/17 08:35 50 MG Ondansetron HCl (Zofran Odt) 4 mg Q6H SL 09/05/17 18:00 10/05/17 17:59 09/05/17 17:06 4 MG Rosuvastatin Calcium (Crestor Tab) 40 mg QAM PO 09/06/17 08:00 10/06/17 08:59 09/06/17 08:35 40 MG Ciprofloxacin/ Dextrose 400 mg/ Prmx 200 ml @ 100 mls/hr Q12@0700,1900 IV 09/05/17 15:00 09/15/17 14:59 09/06/17 06:26 100 MLS/HR Metronidazole 500 mg/Prmx 100 ml @ 100 mls/hr Q8H IV 09/05/17 14:00 09/15/17 13:59 09/06/17 06:16 100 MLS/HR Enoxaparin Sodium (Lovenox Inj) 40 mg Q24H SQ 09/05/17 21:00 10/05/17 20:59 09/05/17 21:25 40 MG Acetaminophen (Tylenol Tab) 650 mg Q4H PRN PO 09/05/17 11:15 10/05/17 11:14 Magnesium Hydroxide (Milk Of Magnesia Susp) 30 ml Q6H PRN PO 09/05/17 11:15 10/05/17 11:14 Polyethylene (Miralax Powder Packet) 17 gm DAILY PRN PO 09/05/17 13:00 10/05/17 12:59 Zolpidem Tartrate (Ambien Tab) 5 mg HSZ PRN PO 09/05/17 11:15 10/05/17 11:14 Ondansetron HCl (Zofran Inj) 4 mg Q6H PRN IV 09/05/17 11:15 10/05/17 11:14 09/05/17 20:24 4 MG Potassium Chloride 40 meq/ Sodium Chloride 1,020 ml @ 100 mls/hr [id number] IV 09/06/17 09:30 10/05/17 09:29 09/06/17 09:58 100 MLS/HR Al Hydrox/Mg Hydrox/Simethicone (Maalox Max Susp) 15 ml Q6H PRN PO 09/06/17 10:30 10/06/17 10:29 Famotidine 20 mg/ Syringe 5 ml @ 2.5 mls/min Q12H IV 09/06/17 10:30 10/06/17 10:29 09/06/17 10:48 2.5 MLS/MIN Objective Vital Signs Date Time Temp Pulse Resp B/P (MAP) Pulse Ox O2 Delivery O2 Flow Rate FiO2 09/06/17 08:00 Room Air 09/06/17 07:40 36.4 61 17 167/81 (109) 95 09/06/17 00:00 Room Air 09/05/17 23:16 36.8 59 18 126/79 (95) 96 Room Air 09/05/17 20:00 Room Air 09/05/17 15:31 Room Air 09/05/17 15:17 36.7 65 18 148/82 (104) 96 Room Air 09/05/17 13:10 37.0 61 20 148/75 (99) 97 Room Air 09/05/17 11:47 75 18 133/90 93 Laboratory Results Last 24 Hours Test 09/06/17 05:38 White Blood Count 7.72 K/uL Red Blood Count 3.79 M/uL Hemoglobin 11.9 g/dL Hematocrit 33.8 % Mean Corpuscular Volume 89.2 fL Mean Corpuscular Hemoglobin 31.4 pg Mean Corpuscular Hemoglobin Concent 35.2 g/dl Platelet Count 246 K/uL Mean Platelet Volume 9.6 fL Neutrophils (%) (Auto) 58.8 % Lymphocytes (%) (Auto) 26.4 % Monocytes (%) (Auto) 9.8 % Eosinophils (%) (Auto) 4.3 % Basophils (%) (Auto) 0.4 % Neutrophils # (Auto) 4.54 K/uL Lymphocytes # (Auto) 2.04 K/uL Monocytes # (Auto) 0.76 K/uL Eosinophils # (Auto) 0.33 K/uL Basophils # (Auto) 0.03 K/uL RDW Standard Deviation 41.1 fL RDW Coefficient of Variation 12.9 % Immature Granulocyte % (Auto) 0.3 % Immature Granulocyte # (Auto) 0.02 K/uL Prothrombin Time 10.9 SECONDS Prothromb Time International Ratio 1.0 Sodium Level 137 mmol/L Potassium Level 3.3 mmol/L Chloride Level 106 mmol/L Carbon Dioxide Level 23 mmol/L Anion Gap 8.0 mmol/L Blood Urea Nitrogen 5 mg/dl Creatinine 0.51 mg/dl Est Creatinine Clear Calc Drug Dose 95.6 ml/min Estimated GFR () 113.7 Estimated GFR (Non- 98.1 BUN/Creatinine Ratio 9.8 Random Glucose 98 mg/dl Lactic Acid Level 0.6 mmol/L Calcium Level 8.5 mg/dl Magnesium Level 2.0 mg/dl Total Bilirubin 0.5 mg/dl Aspartate Amino Transf (AST/SGOT) 21 U/L Alanine Aminotransferase (ALT/SGPT) 25 U/L Alkaline Phosphatase 53 U/L Total Protein 6.4 gm/dl Albumin 3.3 gm/dl Globulin 3.1 gm/dl Albumin/Globulin Ratio 1.1 Assessment and Plan Abnl sigmoid on CT Constipation on CT indefininte adrenal lesion on CT per hospitalist I discussed at length with patient and regarding giving laxative to help with possible constipation contributing to her overall symptoms. This may help and if doesnt help will contribute to bowel prep for colonoscopy versus FS on friday. Pt kept saying I was intent on making her have pain. I tried to explain I was trying do things for her and not to her. She fired me and wants Dr Montenegro to see her. I discussed this with DR Murray that [facility] will no longer be seeing this patient and he would need to order other GI service which is available in the hospital. Will sign off.
[2017-09-06 15:23] VITALS: BP 143/85; PULSE 58; TEMP 37.1; O2SAT 96
[2017-09-06 20:00] VITALS: O2SAT 96
[2017-09-06] MEDS: ENOXAPARIN 40 MG/0.4 ML SYR SQ SCH (22:06)
[2017-09-06 23:01] VITALS: BP 164/89; PULSE 62; TEMP 37.3; O2SAT 94
[2017-09-07] VITALS: O2SAT 96
[2017-09-07] MEDS: HYDROCODONE/ACETAMIN 5/325MG TAB PO PRN ×2 (05:39→22:06)
[2017-09-07] MEDS: ONDANSETRON 4MG OD TAB SL SCH ×4 (06:00→23:34)
[2017-09-07] MEDS: METRONIDAZOLE / NSS 500 MG in PREMIXED NSS 100 ML IV SCH (06:18)
[2017-09-07] MEDS: CIPROFLOXACIN / D5W 400 MG in PREMIXED IN D5W 200 ML IV SCH (06:18)
--- NOTE | 2017-09-07 06:58 | Progress Note ---
Subjective Date of Service: Sep 07, 2017. Subjective afebrile. tolerating abx. now constipated. new gi eval requested, all serolgies/ cultures pending. Problem List Medical Problems: (1) Abdominal pain Status: Acute (2) Abdominal pain Status: Acute (3) Abdominal pain Status: Acute (4) Arthralgia Status: Acute (5) Confusion Status: Acute (6) Diarrhea Status: Acute (7) Diverticulitis Status: Acute (8) Headache Status: Acute (9) Nausea Status: Acute (10) Sinusitis Status: Acute (11) Weakness Status: Acute Objective Vital Signs Date Time Temp Pulse Resp B/P (MAP) Pulse Ox O2 Delivery O2 Flow Rate FiO2 09/07/17 00:00 96 Room Air 09/06/17 23:01 37.3 62 18 164/89 (114) 94 Room Air 09/06/17 20:00 96 Room Air 09/06/17 15:35 Room Air 09/06/17 15:23 37.1 58 22 143/85 (104) 96 Room Air 09/06/17 08:00 Room Air 09/06/17 07:40 36.4 61 17 167/81 (109) 95 Laboratory Results Last 24 Hours Test 09/06/17 13:15 09/07/17 04:44 Assessment and Plan (1) Colitis Assessment & Plan: continue abx, await serologies pending, previous all negative. for scope in am, await findings.
[2017-09-07 07:21] VITALS: BP 153/84; PULSE 66; TEMP 37.1; O2SAT 95
[2017-09-07 07:46] LABS: ALBUMIN 3.2 gm/dl (3.4-5.0); CALCIUM 8.3 mg/dl (8.5-10.1); CREATININE 0.61 mg/dl (0.60-1.20); POTASSIUM 3.5 mmol/L (3.5-5.1)
[2017-09-07 07:49] LABS: TOTAL PROTEIN 6.5 gm/dl (6.4-8.2)
[2017-09-07 07:53] LABS: BASO % 0.6 %; BASO ABS # 0.04 K/uL (0-0.2); EOS ABS # 0.36 K/uL (0-0.5); HEMATOCRIT 35.3 % (37-47); HEMOGLOBIN 12.4 g/dL (12.0-16.0); IG# 0.02 K/uL (0.00-0.02); LYMPH % 25.3 %; LYMPH ABS # 1.82 K/uL (1.2-3.4); MEAN CELL VOLUME 89.6 fL (80-100); MEAN CORPUSCULAR HEMOGLOBIN 31.5 pg (25-34); MEAN CORPUSCULAR HGB CONC 35.1 g/dl (32-36); MEAN PLATELET VOLUME 9.6 fL (7.4-10.4); MONO % 9.1 %; MONO ABS # 0.65 K/uL (0.11-0.59); NEUT % 59.7 %; NEUT ABS # 4.29 K/uL (1.4-6.5); PLATELET COUNT 251 K/uL (130-400); RED CELL DISTRIBUTION WIDTH CV 12.8 % (11.5-14.5); RED CELL DISTRIBUTION WIDTH SD 41.7 fL (36.4-46.3); WHITE BLOOD COUNT 7.18 K/uL (4.8-10.8)
[2017-09-07] MEDS: HYDROmorphone INJ 1 MG/ML SYR IV PRN ×3 (08:21→23:32)
[2017-09-07] MEDS: METOPROLOL SUCC 50MG EXT REL TAB PO SCH (08:21)
[2017-09-07] MEDS: ASPIRIN 325 MG ECTAB PO SCH (08:21)
[2017-09-07] MEDS: ROSUVASTATIN CALCIUM 20 MG TAB PO SCH (08:21)
[2017-09-07] MEDS: EZETIMIBE 10MG TAB PO SCH (08:21)
[2017-09-07] MEDS: POTASSIUM CHLORIDE INJ 40 MEQ in SODIUM CHLORIDE 0.9% 1000ML 1,000 ML IV SCH ×2 (08:25→16:53)
[2017-09-07] MEDS: FAMOTIDINE IV INJ 20 MG in SYRINGE 3 ML IV SCH ×2 (08:25→22:23)
[2017-09-07] MEDS ORDERED: GI COCKTAIL PO PRN (09:00)
--- NOTE | 2017-09-07 10:02 | DIAGNOSTIC IMAGING REPORT ---
GALLBLADDER-ABD LIMITED CLINICAL HISTORY: 67 years-old Female presenting with ruq pain. TECHNIQUE: Real-time grayscale and limited color Doppler ultrasound imaging of the abdomen limited to the right upper quadrant was performed. COMPARISON: CT from 09/05/2017. FINDINGS: Pancreas: Visualized portions of the pancreatic head and body normal. Liver: Normal echogenicity and echotexture. No sonographic evidence of hepatic mass. Main portal vein patent with normal directional flow. Biliary: No intrahepatic biliary ductal dilatation. Common bile duct measures up to 5-7 mm in diameter. Gallbladder: No evidence of gallstones, gallbladder wall thickening, gallbladder distention, or pericholecystic fluid or inflammatory change. Right kidney: Normal in appearance. No hydronephrosis. Ascites: None. Other: None. IMPRESSION: No cholelithiasis or significant biliary ductal dilatation. Electronically signed by: Nadeem Valderrama M.D. 09/07/2017 10:01 AM Dictated Date/Time: 09/07/2017 10:00 AM
[2017-09-07] MEDS ORDERED: ALUMINUM/MAGNESIUM SUSP 72 ML, LIDOCAINE HCL 2% VISCOUS SOLN 24 ML, BARCODE IDENTIFIER ... PO PRN ×2 (10:15)
--- NOTE | 2017-09-07 13:00 | DIAGNOSTIC IMAGING REPORT ---
RIBS UNILATERAL WITH PA CHEST CLINICAL HISTORY: 67 years-old Female presenting with right lower rib pain after fall. TECHNIQUE: Frontal and oblique views of the right ribs as well as PA view of the chest were obtained. COMPARISON: 02/27/2009. FINDINGS: Atherosclerosis of the aortic arch with tortuosity of the descending thoracic aorta. Cardiac silhouette normal in size. Lungs and pleural spaces clear. Right axilla surgical clips noted. Upper abdomen normal. Scoliotic curvature of the lumbar spine. Surgical clips project over the right mid abdomen. No displaced right rib fracture. IMPRESSION: 1. No acute cardiopulmonary disease. 2. No displaced right rib fracture. Electronically signed by: Nadeem Valderrama M.D. 09/07/2017 12:59 PM Dictated Date/Time: 09/07/2017 12:57 PM
--- NOTE | 2017-09-07 13:41 | Progress Note ---
Subjective Date of Service: Sep 07, 2017. Subjective pt and concerned that her pain has not moved to [facility] she had a fall and has ecchymosis there, no comments on abd/pelvis CT of rib injury, repeat rib X ray does not show any fractures Problem List Medical Problems: (1) Abdominal pain Status: Acute (2) Abdominal pain Status: Acute (3) Abdominal pain Status: Acute (4) Arthralgia Status: Acute (5) Confusion Status: Acute (6) Diarrhea Status: Acute (7) Diverticulitis Status: Acute (8) Headache Status: Acute (9) Nausea Status: Acute (10) Sinusitis Status: Acute (11) Weakness Status: Acute Review of Systems Constitutional: No fever, No chills, No weakness, No fatigue Respiratory: No cough, No shortness of breath, No dyspnea on exertion Cardiac: + chest pain (rigth lower chest wall ), No edema Abdomen: + pain, No nausea, No vomiting, No diarrhea, No constipation Musculoskeletal: No joint pain, No muscle pain Female : No dysuria, No urinary frequency Psychiatric: + anxiety, No depression symptoms Objective Vital Signs Date Time Temp Pulse Resp B/P (MAP) Pulse Ox O2 Delivery O2 Flow Rate FiO2 09/07/17 07:21 37.1 66 16 153/84 (107) 95 09/07/17 00:00 96 Room Air 09/06/17 23:01 37.3 62 18 164/89 (114) 94 Room Air 09/06/17 20:00 96 Room Air 09/06/17 15:35 Room Air 09/06/17 15:23 37.1 58 22 143/85 (104) 96 Room Air 09/06/17 08:00 Room Air 09/06/17 07:40 36.4 61 17 167/81 (109) 95 Physical Exam General Appearance: WD/WN, + mild distress Eyes: normal inspection, sclerae normal Neck: supple, thyroid normal Respiratory/Chest: lungs clear, normal breath sounds Cardiovascular: regular rate, rhythm, no murmur Abdomen: normal bowel sounds, soft, + tenderness (right upper quadrants over lower ribs) Extremities: no pedal edema, no calf tenderness Neurologic/Psychiatric: alert, oriented x 3 Skin: + pertinent finding (bruise noted on right flank pt states from fall) Laboratory Results Last 24 Hours Test 09/06/17 13:15 09/07/17 07:15 Assessment and Plan 67-year-old female with past medical history of hypertension and dyslipidemia who 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 Pt developed encephalopathy at home and fell Mid to distal sigmoid colitis, IV hydration and cipro flagyl, has not had any more diarrhea, negative stool cultures, stop antibiotics 09/07 some stool in transverse colon, exam does not seem consistent with constipation , will follow, pt requests to see Dr Moy Abdominal pain seems musculoskeletal, but no rib fractures seen and no shingles easily apparent, maybe soft tissue injury from fall Metabolic encephalopathy resolved HTn and cardiovascular risk reduction, metoprolol aspirin and zetia, held aspirin for bleeding concerns Diarrhea none further INcidentaly noted adrenal changes on cT scan will recommend future follow up DVT prevention is lovenox I
[2017-09-07 15:49] VITALS: BP 150/61; PULSE 54; TEMP 36.7; O2SAT 97
[2017-09-07] MEDS: ENOXAPARIN 40 MG/0.4 ML SYR SQ SCH (21:25)
[2017-09-07 23:41] VITALS: BP 176/96; PULSE 67; TEMP 36.8; O2SAT 94
[2017-09-08] VITALS: O2SAT 96
[2017-09-08] MEDS: POTASSIUM CHLORIDE INJ 40 MEQ in SODIUM CHLORIDE 0.9% 1000ML 1,000 ML IV SCH ×3 (02:38→23:35)
[2017-09-08] MEDS: ALUMINUM/MAGNESIUM/SIMETH (MAALOX MAX) 30 ML UDC PO PRN (04:36)
[2017-09-08] MEDS: ONDANSETRON 4MG OD TAB SL SCH ×4 (05:51→23:44)
[2017-09-08 07:55] VITALS: BP 148/84; PULSE 70; TEMP 36.9; O2SAT 95
[2017-09-08] MEDS: ROSUVASTATIN CALCIUM 20 MG TAB PO SCH (08:21)
[2017-09-08] MEDS: ASPIRIN 325 MG ECTAB PO SCH (08:21)
[2017-09-08] MEDS: METOPROLOL SUCC 50MG EXT REL TAB PO SCH (08:22)
[2017-09-08] MEDS: EZETIMIBE 10MG TAB PO SCH (08:22)
[2017-09-08 09:08] VITALS: O2SAT 95
[2017-09-08] MEDS: HYDROmorphone INJ 1 MG/ML SYR IV PRN ×3 (09:58→23:36)
[2017-09-08] MEDS: FAMOTIDINE IV INJ 20 MG in SYRINGE 3 ML IV SCH (09:58)
--- NOTE | 2017-09-08 09:58 | Gastrointestinal Consultation ---
Gastrointestinal Consultation Date of Consultation: Sep 08, 2017 Attending Physician: Dr. Murray Consulting Physician: Dr. Monten[place]/NAIMA Verma Reason for Consultation: Colitis History of Present Illness Patient is a 67 year old female with a history of abdominal pain and diarrhea which has been ongoing for the past several weeks. [facility] has been consulted for a second opinion. She does have a history of international travel to [place] in mid-July but she denies suspicious food or beverage consumption. A stool culture has been ordered and negative for enteric pathogens. Prior to this hospital admission, she was seen and evaluated on 3 separate occasions at [facility] ER. She did have a total of 4 CT a/ps with unremarkable testing on the first two scans but the third CT on 09/01/17 with equivocal mild acute sigmoid diverticulitis. During this admission a repeat CT scan was performed on 09/05/17 and demonstrated nonspecific colitis, favoring possible acute diverticulitis. She was initially treated with Augmentin but has now been switched to IV Cipro/ Flagyl which was discontinued last evening. She was initially seen and evaluated by Dr. Mcallister and Dr. Layne over the weekend. There was consideration of colonoscopy today but patient asked for a second opinion. In regard to symptoms at present, she reports chills without fever, occasional nausea without vomiting, improved abdominal pain and resolved diarrhea. She did pass a softly formed but mucoid and slightly bloody stool yesterday. Denies any bloating, chest pain, shortness of breath, lower extremity edema or other GI complaints. Overall, she reports belief she is improving clinically. Patient verbalizes concern that her last colonoscopy performed 6 years ago resulted in colonic perforation. Past Medical/Surgical History Medical Problems: (1) Abdominal pain Status: Acute (2) Abdominal pain Status: Acute (3) Abdominal pain Status: Acute (4) Arthralgia Status: Acute (5) Confusion Status: Acute (6) Diarrhea Status: Acute (7) Diverticulitis Status: Acute (8) Headache Status: Acute (9) Nausea Status: Acute (10) Sinusitis Status: Acute (11) Weakness Status: Acute Past Medical History: 1. Breast cancer 2. Headache 3. Diverticulitis 4. Sinusitis Past Surgical History: 1. Breast reconstruction 2. Colonoscopy Family History Not known due to adoption Unknown as she was adopted Social History Smoking Status: Never Smoker Alcohol Use: occasionally Drug Use: none Marital Status: Housing Status: lives with significant other Occupation Status: unemployed Allergies Coded Allergies: Bisphosphonates (Verified Adverse Reaction, Unknown, INTOLERANT-STOMACH AND CHEST PAINS, 09/05/17) Current Medications Home Meds and Scripts Medications Dose Route/Sig Max Daily Dose Days Date Category [place] 5MG/325MG (Acetaminophen/Hydrocodone Bitart) Tab 1 Tablet PO Q4-6 HR PRN 09/01/17 Rx Flagyl (Metronidazole) 500 Mg Tab 500 Mg PO TID 09/01/17 Rx Cipro (Ciprofloxacin Hcl) 500 Mg Tab 500 Mg PO BID 09/01/17 Rx Zofran Odt (Ondansetron HCl) 4 Mg Tab 4 Mg SL Q6H 08/24/17 Rx Aspirin Ec (Aspirin) 325 Mg Tab 325 Mg PO DAILY 08/20/17 Reported Zetia (Ezetimibe) 10 Mg Tab 10 Mg PO QAM 05/26/17 Reported Nexium (Esomeprazole Magnesium) 40 Mg Capcr 40 Mg PO QAM 05/26/17 Reported Crestor (Rosuvastatin Calcium) 40 Mg Tab 40 Mg PO QAM 10/06/15 Reported Toprol-Xl (Metoprolol Succinate) 50 Mg Tabcr 50 Mg PO QAM 02/27/09 Reported Review of Systems See HPI for pertinent positives & negatives. A total of 10 systems reviewed and were otherwise negative. Physical Exam Date Time Temp Pulse Resp B/P (MAP) Pulse Ox O2 Delivery O2 Flow Rate FiO2 09/08/17 09:08 95 Room Air 09/08/17 07:55 36.9 70 18 148/84 (105) 95 Room Air 09/08/17 00:00 96 Room Air 09/07/17 23:41 36.8 67 19 176/96 (122) 94 Room Air 09/07/17 15:49 36.7 54 16 150/61 (90) 97 09/07/17 15:40 Room Air General Appearance: no apparent distress Eyes: EOMI ENT: hearing grossly normal Neck: supple Respiratory/Chest: lungs clear, normal breath sounds, no respiratory distress Cardiovascular: regular rate, rhythm, no gallop, no murmur Abdomen: normal bowel sounds, non tender, soft, + pertinent finding (lower abdominal scar. +ecchymosis) Extremities: no pedal edema Neurologic/Psych: alert, normal mood/affect, oriented x 3 Skin: no jaundice, warm/dry Impression Patient is a 67 year old female admitted with abdominal pain and diarrhea, now improving and abnormal CT imaging suggestive of colitis, suspected to be diverticular in nature. Plan 1. Restart Cipro and Flagyl to complete a 10 day course (starting from most recent CT 09/05/17). 2. Low residue diet. 3. Adequate fluid intake and avoidance of NSAIDs. 4. Supportive care per primary team. 5. Would defer consideration of invasive GI work up for 6-8 weeks due to presumed diverticulitis, especially in light of history of prior colonic perforation. Thank you for allowing us to participate in the care of this pleasant patient. If you have any questions or concerns, please do not hesitate to contact us. Agree with NAIMA Verma as above Abd: Soft, NT, ND, +BS Continue current therapy Complete 10 day course of Cipro/Flagyl Will contact patient for followup appointment and Colonoscopy as outpatient.
--- NOTE | 2017-09-08 12:14 | Progress Note ---
Subjective Date of Service: Sep 08, 2017. Subjective Pt evaluation today including: conversation w/ patient, physical exam, chart review, lab review 67 yo female. Patient reports feeling that she is improving. She is not 100% and still has abdominal pain but it is slightly decreased in intensity. Pain is located in RUQ and is non radiating. Pain is intermittent. No aggravating or alleviating factors. Patient had a small BM with stool and mucous. Patient denies any blood. Patient denies any fever, chills, nausea, vomiting today. Problem List Medical Problems: (1) Abdominal pain Status: Acute (2) Abdominal pain Status: Acute (3) Abdominal pain Status: Acute (4) Arthralgia Status: Acute (5) Confusion Status: Acute (6) Diarrhea Status: Acute (7) Diverticulitis Status: Acute (8) Headache Status: Acute (9) Nausea Status: Acute (10) Sinusitis Status: Acute (11) Weakness Status: Acute Review of Systems Constitutional: No fever, No chills Eyes: No worsening of vision ENT: No hearing loss Respiratory: No cough Cardiac: No chest pain, No orthopnea Breast: No breast lump Abdomen: + pain, No nausea Musculoskeletal: No joint pain Neurologic: No memory loss Psychiatric: No depression symptoms Heme: No abnormal bleeding/bruising Endo: No fatigue Skin: No rash All Other Systems: Reviewed and Negative Medications Current Inpatient Medications Medications (Trade) Dose Ordered Sig/Yuan Route Start Time Stop Time Status Last Admin Dose Admin Ioversol (Optiray 320) 100 ml UD PRN IV 09/05/17 08:15 09/09/17 08:14 Hydromorphone HCl (Dilaudid Inj) 1 mg Q4H PRN IV 09/05/17 11:00 09/19/17 10:59 09/08/17 09:58 1 MG Aspirin (Ecotrin Tab) 325 mg DAILY PO 09/06/17 08:00 10/06/17 08:59 09/08/17 08:21 325 MG EZETIMIBE (Zetia Tab) 10 mg QAM PO 09/06/17 08:00 10/06/17 08:59 09/08/17 08:22 10 MG Acetaminophen/ Hydrocodone Bitart ([place] 5/325 Tab) 1 tab Q4H PRN PO 09/05/17 11:15 09/19/17 11:14 09/07/17 22:06 1 TAB Metoprolol Succinate (Toprol Xl Tab) 50 mg QAM PO 09/06/17 08:00 10/06/17 08:59 09/08/17 08:22 50 MG Ondansetron HCl (Zofran Odt) 4 mg Q6H SL 09/05/17 18:00 10/05/17 17:59 09/05/17 17:06 4 MG Rosuvastatin Calcium (Crestor Tab) 40 mg QAM PO 09/06/17 08:00 10/06/17 08:59 09/08/17 08:21 40 MG Enoxaparin Sodium (Lovenox Inj) 40 mg Q24H SQ 09/05/17 21:00 10/05/17 20:59 09/07/17 21:25 40 MG Acetaminophen (Tylenol Tab) 650 mg Q4H PRN PO 09/05/17 11:15 10/05/17 11:14 Magnesium Hydroxide (Milk Of Magnesia Susp) 30 ml Q6H PRN PO 09/05/17 11:15 10/05/17 11:14 Polyethylene (Miralax Powder Packet) 17 gm DAILY PRN PO 09/05/17 13:00 10/05/17 12:59 Zolpidem Tartrate (Ambien Tab) 5 mg HSZ PRN PO 09/05/17 11:15 10/05/17 11:14 Ondansetron HCl (Zofran Inj) 4 mg Q6H PRN IV 09/05/17 11:15 10/05/17 11:14 09/05/17 20:24 4 MG Potassium Chloride 40 meq/ Sodium Chloride 1,020 ml @ 100 mls/hr [id number] IV 09/06/17 09:30 10/05/17 09:29 09/08/17 02:38 100 MLS/HR Al Hydrox/Mg Hydrox/Simethicone (Maalox Max Susp) 15 ml Q6H PRN PO 09/06/17 10:30 10/06/17 10:29 09/08/17 04:36 15 ML Famotidine 20 mg/ Syringe 5 ml @ 2.5 mls/min Q12H IV 09/06/17 10:30 10/06/17 10:29 3/26/18 09:58 2.5 MLS/MIN Al Hydroxide/Mg Hydroxide/ Lidocaine HCl/ Barcode Q6H PRN PO 09/07/17 10:15 10/07/17 10:14 Ciprofloxacin (Cipro Tab) 500 mg BID PO 09/08/17 20:00 09/18/17 19:59 Metronidazole (Flagyl Tab) 500 mg TID PO 09/08/17 14:00 09/18/17 13:59 Objective Vital Signs Date Time Temp Pulse Resp B/P (MAP) Pulse Ox O2 Delivery O2 Flow Rate FiO2 09/08/17 10:27 Room Air 09/08/17 09:08 95 Room Air 09/08/17 07:55 36.9 70 18 148/84 (105) 95 Room Air 09/08/17 00:00 96 Room Air 09/07/17 23:41 36.8 67 19 176/96 (122) 94 Room Air 09/07/17 15:49 36.7 54 16 150/61 (90) 97 09/07/17 15:40 Room Air Physical Exam Comments: General Appearance: WD/WN, no distress Eyes: normal inspection, sclerae normal Neck: supple, thyroid normal Respiratory/Chest: lungs clear, normal breath sounds Cardiovascular: regular rate, rhythm, no murmur Abdomen: normal bowel sounds, soft, + tenderness (right upper quadrants over lower ribs) Extremities: no pedal edema, no calf tenderness Neurologic/Psychiatric: alert, oriented x 3 Skin: + pertinent finding (bruise noted on right flank pt states from fall) Laboratory Results Last 24 Hours Test 09/08/17 10:08 Stool Occult Blood NEGATIVE Assessment and Plan 67-year-old female with past medical history of hypertension and dyslipidemia who 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 Pt developed encephalopathy at home and fell Mid to distal sigmoid colitis, IV hydration Continue PO cipro flagyl, has not had any more diarrhea, negative stool cultures , Antibiotics are resumed and will continue for 10 day course some stool in transverse colon, exam continues to be nonconsistent with constipation, Patient saw APC from Case May require colonoscopy as an outpatient Abdominal pain seems musculoskeletal, but no rib fractures seen and no shingles easily apparent, maybe soft tissue injury from fall will monitor Metabolic encephalopathy resolved HTN and cardiovascular risk reduction, metoprolol, aspirin and zetia, held aspirin for bleeding concerns Diarrhea none further Incidentally noted adrenal changes on CT scan will recommend future follow up DVT prevention is lovenox Spent 45 minutes in the management of this case. Continued [facility] stay due to: multiple IV medications needed Discharge planning: uncertain
[2017-09-08 14:29] VITALS: BP 168/83; PULSE 64; TEMP 37.3; O2SAT 96
[2017-09-08] MEDS: METRONIDAZOLE 500 MG TAB PO SCH ×2 (15:03→20:07)
[2017-09-08] MEDS: CIPROFLOXACIN 500 MG TAB PO SCH (20:06)
[2017-09-08] MEDS: FAMOTIDINE 20 MG TAB PO SCH (20:08)
[2017-09-08] MEDS: ENOXAPARIN 40 MG/0.4 ML SYR SQ SCH (21:38)
[2017-09-09 00:11] VITALS: BP 162/82; PULSE 62; TEMP 37.1; O2SAT 95
[2017-09-09] MEDS: ONDANSETRON 4MG OD TAB SL SCH ×4 (05:51→23:29)
[2017-09-09] MEDS: ALUMINUM/MAGNESIUM/SIMETH (MAALOX MAX) 30 ML UDC PO PRN (05:56)
[2017-09-09 06:11] LABS: HEMATOCRIT 37.8 % (37-47); HEMOGLOBIN 13.5 g/dL (12.0-16.0); MEAN CELL VOLUME 89.8 fL (80-100); MEAN CORPUSCULAR HEMOGLOBIN 32.1 pg (25-34); MEAN CORPUSCULAR HGB CONC 35.7 g/dl (32-36); MEAN PLATELET VOLUME 9.6 fL (7.4-10.4); PLATELET COUNT 279 K/uL (130-400); RED CELL DISTRIBUTION WIDTH CV 12.9 % (11.5-14.5); RED CELL DISTRIBUTION WIDTH SD 41.9 fL (36.4-46.3); WHITE BLOOD COUNT 10.89 K/uL (4.8-10.8)
[2017-09-09 07:00] LABS: CALCIUM 8.9 mg/dl (8.5-10.1); CREATININE 0.61 mg/dl (0.60-1.20); POTASSIUM 4.4 mmol/L (3.5-5.1)
[2017-09-09] MEDS: METOPROLOL SUCC 50MG EXT REL TAB PO SCH (07:11)
[2017-09-09 07:40] VITALS: BP 170/106; PULSE 65; TEMP 36.6; O2SAT 96
[2017-09-09 08:01] VITALS: BP 183/114
[2017-09-09] MEDS: CIPROFLOXACIN 500 MG TAB PO SCH ×2 (08:39→20:17)
[2017-09-09] MEDS: EZETIMIBE 10MG TAB PO SCH (08:40)
[2017-09-09] MEDS: ROSUVASTATIN CALCIUM 20 MG TAB PO SCH (08:40)
[2017-09-09] MEDS: ASPIRIN 325 MG ECTAB PO SCH (08:40)
[2017-09-09] MEDS: METRONIDAZOLE 500 MG TAB PO SCH ×3 (08:40→20:16)
[2017-09-09] MEDS: FAMOTIDINE 20 MG TAB PO SCH ×2 (08:41→20:17)
[2017-09-09] MEDS: POTASSIUM CHLORIDE INJ 40 MEQ in SODIUM CHLORIDE 0.9% 1000ML 1,000 ML IV SCH (08:43)
[2017-09-09] MEDS: HYDROmorphone INJ 1 MG/ML SYR IV PRN ×2 (08:44→23:11)
[2017-09-09] MEDS ORDERED: LISINOPRIL 10 MG TAB PO STA (09:17)
--- NOTE | 2017-09-09 09:27 | Progress Note ---
Subjective Date of Service: Sep 09, 2017. Subjective Pt evaluation today including: conversation w/ patient Patient continues to have pain in right lower chest. No pain in abdomen. Patient believes pain is from musculoskeletal injury. Update 1800 Patient reports lidocaine patch has been helping. Problem List Medical Problems: (1) Abdominal pain Status: Acute (2) Abdominal pain Status: Acute (3) Abdominal pain Status: Acute (4) Arthralgia Status: Acute (5) Confusion Status: Acute (6) Diarrhea Status: Acute (7) Diverticulitis Status: Acute (8) Headache Status: Acute (9) Nausea Status: Acute (10) Sinusitis Status: Acute (11) Weakness Status: Acute Review of Systems Constitutional: No fever, No chills Eyes: No worsening of vision ENT: No hearing loss Respiratory: No cough Cardiac: + chest pain Abdomen: + pain Musculoskeletal: No joint pain Neurologic: No memory loss Psychiatric: No depression symptoms Heme: No abnormal bleeding/bruising Endo: No fatigue Skin: No rash All Other Systems: Reviewed and Negative Medications Current Inpatient Medications Medications (Trade) Dose Ordered Sig/Yuan Route Start Time Stop Time Status Last Admin Dose Admin Hydromorphone HCl (Dilaudid Inj) 1 mg Q4H PRN IV 09/05/17 11:00 09/19/17 10:59 09/09/17 08:44 1 MG Aspirin (Ecotrin Tab) 325 mg DAILY PO 09/06/17 08:00 10/06/17 08:59 09/09/17 08:40 325 MG EZETIMIBE (Zetia Tab) 10 mg QAM PO 09/06/17 08:00 10/06/17 08:59 09/09/17 08:40 10 MG Acetaminophen/ Hydrocodone Bitart ([place] 5/325 Tab) 1 tab Q4H PRN PO 09/05/17 11:15 09/19/17 11:14 09/07/17 22:06 1 TAB Metoprolol Succinate (Toprol Xl Tab) 50 mg QAM PO 09/06/17 08:00 10/06/17 08:59 09/09/17 07:11 50 MG Ondansetron HCl (Zofran Odt) 4 mg Q6H SL 09/05/17 18:00 10/05/17 17:59 09/09/17 17:56 4 MG Rosuvastatin Calcium (Crestor Tab) 40 mg QAM PO 09/06/17 08:00 10/06/17 08:59 09/09/17 08:40 40 MG Enoxaparin Sodium (Lovenox Inj) 40 mg Q24H SQ 09/05/17 21:00 10/05/17 20:59 09/09/17 20:17 40 MG Acetaminophen (Tylenol Tab) 650 mg Q4H PRN PO 09/05/17 11:15 10/05/17 11:14 Magnesium Hydroxide (Milk Of Magnesia Susp) 30 ml Q6H PRN PO 09/05/17 11:15 10/05/17 11:14 Polyethylene (Miralax Powder Packet) 17 gm DAILY PRN PO 09/05/17 13:00 10/05/17 12:59 Zolpidem Tartrate (Ambien Tab) 5 mg HSZ PRN PO 09/05/17 11:15 10/05/17 11:14 Ondansetron HCl (Zofran Inj) 4 mg Q6H PRN IV 09/05/17 11:15 10/05/17 11:14 09/05/17 20:24 4 MG Al Hydrox/Mg Hydrox/Simethicone (Maalox Max Susp) 15 ml Q6H PRN PO 09/06/17 10:30 10/06/17 10:29 09/09/17 05:56 15 ML Al Hydroxide/Mg Hydroxide/ Lidocaine HCl/ Barcode Q6H PRN PO 09/07/17 10:15 10/07/17 10:14 Ciprofloxacin (Cipro Tab) 500 mg BID PO 09/08/17 20:00 09/18/17 19:59 09/09/17 20:17 500 MG Metronidazole (Flagyl Tab) 500 mg TID PO 09/08/17 14:00 09/18/17 13:59 09/09/17 20:16 500 MG Famotidine (Pepcid Tab) 20 mg Q12 PO 09/08/17 21:00 10/08/17 20:59 09/09/17 20:17 20 MG Lidocaine (Lidoderm Patch 5%) 1 patch QAM TD 09/10/17 08:00 10/10/17 07:59 Miscellaneous (Remove Lidoderm Patch) 1 ea DAILY@21 N/A 09/09/17 21:00 10/09/17 20:59 09/09/17 20:18 1 EA Objective Vital Signs Date Time Temp Pulse Resp B/P (MAP) Pulse Ox O2 Delivery O2 Flow Rate FiO2 09/09/17 08:01 183/114 (137) 09/09/17 07:40 36.6 65 18 170/106 (127) 96 Room Air 09/09/17 00:11 37.1 62 20 162/82 (108) 95 Room Air 09/08/17 23:30 Room Air 09/08/17 16:20 Room Air 09/08/17 14:29 37.3 64 18 168/83 (111) 96 09/08/17 10:27 Room Air Physical Exam Comments: General Appearance: WD/WN, no distress Eyes: normal inspection, sclerae normal Neck: supple, thyroid normal Respiratory/Chest: lungs clear, normal breath sounds Cardiovascular: regular rate, rhythm, no murmur Chest: tendernes to palpation over right lower chest Abdomen: normal bowel sounds, soft, no tenderness Extremities: no pedal edema, no calf tenderness Neurologic/Psychiatric: alert, oriented x 3 Skin: + pertinent finding (bruise noted on right flank pt states from fall) Laboratory Results Last 24 Hours Test 09/08/17 10:08 09/09/17 05:22 Stool Occult Blood NEGATIVE White Blood Count 10.89 K/uL Red Blood Count 4.21 M/uL Hemoglobin 13.5 g/dL Hematocrit 37.8 % Mean Corpuscular Volume 89.8 fL Mean Corpuscular Hemoglobin 32.1 pg Mean Corpuscular Hemoglobin Concent 35.7 g/dl RDW Standard Deviation 41.9 fL RDW Coefficient of Variation 12.9 % Platelet Count 279 K/uL Mean Platelet Volume 9.6 fL Sodium Level 136 mmol/L Potassium Level 4.4 mmol/L Chloride Level 104 mmol/L Carbon Dioxide Level 23 mmol/L Anion Gap 9.0 mmol/L Blood Urea Nitrogen 7 mg/dl Creatinine 0.61 mg/dl Est Creatinine Clear Calc Drug Dose 79.9 ml/min Estimated GFR () 107.2 Estimated GFR (Non- 92.5 BUN/Creatinine Ratio 11.4 Random Glucose 92 mg/dl Calcium Level 8.9 mg/dl Assessment and Plan 67-year-old female with past medical history of hypertension and dyslipidemia who 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 Pt developed encephalopathy at home and fell Mid to distal sigmoid colitis, IV hydration Continue PO cipro flagyl, has not had any more diarrhea, negative stool cultures , Antibiotics are resumed and will continue for 10 day course This appears to be improving as patients abdomen has improved. some stool in transverse colon, exam continues to be nonconsistent with constipation, Patient saw APC from Case May require colonoscopy as an outpatient. Abd./ chest pain seems musculoskeletal, but no rib fractures seen and no shingles easily apparent, maybe soft tissue injury from fall Added lidoderm patch for pain. This appears to be helping. will monitor Metabolic encephalopathy resolved HTN and cardiovascular risk reduction, not at goal. will add florinda inhibitor and will monitor. will not be too aggressive to rapdily decrease bp. will decrease this over days, . will also stop fluids. metoprolol, aspirin and zetia, held aspirin for bleeding concerns Diarrhea none further Incidentally noted adrenal changes on CT scan will recommend future follow up DVT prevention is lovenox Continued [facility] stay due to: inadequate oral pain control, multiple IV medications needed Discharge planning: uncertain
[2017-09-09] MEDS ORDERED: LIDODERM (LIDOCAINE) PATCH 5% TD ONE (09:45)
[2017-09-09 11:15] VITALS: BP 170/96; PULSE 61
[2017-09-09 14:51] VITALS: BP 151/83; PULSE 53; TEMP 36.9; O2SAT 95
[2017-09-09] MEDS: ENOXAPARIN 40 MG/0.4 ML SYR SQ SCH (20:17)
[2017-09-09 23:39] VITALS: BP 146/78; PULSE 65; TEMP 37.1; O2SAT 95
[2017-09-10] MEDS: HYDROmorphone INJ 1 MG/ML SYR IV PRN (03:35)
[2017-09-10] MEDS: ONDANSETRON 4MG OD TAB SL SCH ×2 (06:35→12:00)
[2017-09-10] MEDS ORDERED: LIDODERM (LIDOCAINE) PATCH 5% TD SCH (08:00)
[2017-09-10 08:56] VITALS: BP 122/70; PULSE 68; TEMP 36.6; O2SAT 93
[2017-09-10] MEDS: CIPROFLOXACIN 500 MG TAB PO SCH (09:29)
[2017-09-10] MEDS: ROSUVASTATIN CALCIUM 20 MG TAB PO SCH (09:30)
[2017-09-10] MEDS: ASPIRIN 325 MG ECTAB PO SCH (09:31)
[2017-09-10] MEDS: METRONIDAZOLE 500 MG TAB PO SCH ×2 (09:31→13:17)
[2017-09-10] MEDS: METOPROLOL SUCC 50MG EXT REL TAB PO SCH (09:32)
[2017-09-10] MEDS: EZETIMIBE 10MG TAB PO SCH (09:32)
[2017-09-10] MEDS: FAMOTIDINE 20 MG TAB PO SCH (09:35)
[2017-09-10 10:11] VITALS: O2SAT 93
[2017-09-10 12:40] VITALS: BP 122/70; PULSE 68; TEMP 36.6; O2SAT 93
[2017-09-10] MEDS ORDERED: LACTOBACILLUS ACIDOPHILUS (FLORANEX) TAB PO STA (12:51)
[2017-09-10] MEDS ORDERED: LCTX PO (12:54)
[2017-09-10] MEDS ORDERED: MTR500 PO (12:54)
[2017-09-10] MEDS ORDERED: CPR500 PO (12:54)
--- NOTE | 2017-09-10 13:00 | Discharge Instructions ---
Discharge Instructions Date of Service Sep 10, 2017. Admission Reason for Admission: Colitis Discharge Discharge Diagnosis / Problem: Colitis Discharge Goals Goal(s): Decrease discomfort, Improve function Activity Recommendations Activity Limitations: resume your previous activity . Instructions / Follow-Up Instructions / Follow-Up Follow up with PCP in 1 week. Can use 4% lidocaine patches over the counter. Use one patch for 12 hours. Then 12 hours without the lidocaine patch. Preferably use for the day time. You were recently prescribed antibiotics a few days before coming to Hospital. Will defer future narcotics to PCP. Current Hospital Diet Patient's current hospital diet: Regular Diet Discharge Diet Recommended Diet: Regular Diet Pending Studies Studies pending at discharge: no Medical Emergencies . Who to Call and When: Medical Emergencies: If at any time you feel your situation is an emergency, please call 911 immediately. . Non-Emergent Contact Non-Emergency issues call your: Primary Care Provider Call Non-Emergent contact if: you have any medication questions . . "Provider Documentation" section prepared by Nathaniel Glover. . [place] Drug Monitoring Program Search Results: patient reviewed within database, no issues identified
--- NOTE | 2017-09-11 10:49 | Discharge Summary ---
Discharge Summary Date of Service Sep 11, 2017. 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 1 week after arrival patient had persistent intermittent crampy abdominal pain, diarrhea, vomiting, currently has mucus stool with blood. Pt developed encephalopathy at home and fell Mid to distal sigmoid colitis, IV hydration Continue PO cipro flagyl, has not had any more diarrhea, negative stool cultures , Antibiotics are resumed and will continue for 10 day course This appears to be improving as patients abdomen has improved. some stool in transverse colon, exam continues to be nonconsistent with constipation, Patient saw APC from Case May require colonoscopy as an outpatient. Abd./ chest pain seems musculoskeletal, but no rib fractures seen and no shingles easily apparent, maybe soft tissue injury from fall Added lidoderm patch for pain. This appears to be helping. will monitor Metabolic encephalopathy resolved HTN and cardiovascular risk reduction, not at goal. will add florinda inhibitor and will monitor. will not be too aggressive to rapdily decrease bp. will decrease this over days, . will also stop fluids. metoprolol, aspirin and zetia, held aspirin for bleeding concerns Diarrhea none further Incidentally noted adrenal changes on CT scan will recommend future follow up DVT prevention is lovenox This includes examination of the patient, discharge planning, medication reconciliation, and communication with other providers. Discharge Instructions Please refer to the electronic Patient Visit Report (Discharge Instructions) for additional information.
== END 2017-09-10 13:30 | disposition home or self-care (01) | DRG 391 ==
LOC: C.EDB 07:07 → C.4E 11:19 → ENRESERV 12:02
PROVIDERS: ADMIT Internal Medicine; ATTEND Internal Medicine Sports Medicine
DX: K52.9 Noninfective gastroenteritis and colitis, unspecified (principal); G93.41 Metabolic encephalopathy; S30.1XXA Contusion of abdominal wall, initial encounter; W19.XXXA Unspecified fall, initial encounter; I10 Essential (primary) hypertension; E78.5 Hyperlipidemia, unspecified; R93.5 Abnormal findings on diagnostic imaging of other abdominal regions, including retroperitoneum; Z86.010 Personal history of colon polyps; Z79.82 Long term (current) use of aspirin; Z79.899 Other long term (current) drug therapy; Z88.8 Allergy status to other drugs, medicaments and biological substances

== ENCOUNTER → 2017-09-15 | Outpatient (CLI) | payer OTHER ==
[~2017-09-15] MED LIST changes: -CIPR-255 PO; +CPR500 PO; +LCTX PO; -METR-163 PO; +MTR500 PO
== END | disposition home or self-care (01) ==
LOC: C.LABFOXMH 09:13
PROVIDERS: ATTEND Internal Medicine
DX: E78.00 Pure hypercholesterolemia, unspecified (principal)

== ENCOUNTER → 2017-09-18 | Outpatient (CLI) | payer OTHER | END | disposition home or self-care (01) | LOC: C.LABFOXMH 08:04 | PROVIDERS: ATTEND Internal Medicine | DX: G25.81 Restless legs syndrome (principal) ==

== ENCOUNTER → 2017-09-24 | Outpatient (CLI) | payer OTHER ==
--- NOTE | 2017-09-25 06:20 | PAP/PSG TECHNICIAN REPORT ---
[facility] Assistant Professor Of Music Polysomnogram Report Study name: None Report date: 09/25/2017 Study date: 09/24/2017 Referring Physician: Jamey Sierra MD. Name: THIERRY BOJORQUEZ Interpreting Physician: Seth Date of : 1950 Assistant Professor Of Music: Starla Canchola RPS. Sex: Female Age: 67 StudyType: PSG Weight: 154 lbs Height: 67 years, Height 61" BMI: 29.09 Medications: Aspirin 81 mg, Resteril 15 mg, Crestor 10 mg, Flonase 50 mcg, Esomeprazole Magnesium 40 mg, Zetia 10 mg, Valsartan 40 mg, Toprol 50 mg, Pramipexole 0.125 mg Patient History 67 yr. old female here for a possible split night sleep study in room 5. Patient had a titration sleep study in 2010. Patients current ESS is 0/24. Parameters Monitored NPSG: E1-M2, E2-M1, Fp1-M2, Fp2-M1, F3-M2, F4-M2, F4-M1, C3-M2, C4-M2, C4-M1, O1-M2, O2-M2, O2-M1, T3-M2, T4-M1, P3-M2, P4-M1, CHIN1, CHIN2, HR, EKG, Legs, PFLOW, SNOR, FLOW, CFLOW, Tidal Volume, THOR, ABDO, SpO2, PLTH, CPRESS, ETCO2 Wave, ETCO2, pH Sleep Architecture Sleep Stages Time at Lights Off 9:21:28 PM STAGES Time (min.) TST (%) Time at Lights On 5:31:58 AM Wake 121.5 -- Total Recording Time (TRT) 490.50 min. N1 20.0 5 Total Sleep Period (TSP) 409.5 min. N2 280.0 76 Total Sleep Time (TST) 369.0min. N3 43.0 12 Awake Time 121.5 min. REM 26.0 7 Wake after Sleep Onset 40.5 min. Sleep Efficiency (SE) 75 % Sleep Onset Latency (BRYAN) 81.0 min. Number of Stage 1 Shifts None Awakenings 9 Stage Changes 42 Number of REM periods 5 REM 26.0 7 REM Latency 27.5 min. NREM 343.0 93 Body Position Analysis Supine Right Left Side Prone Vertical Total Sleep Time (min.) 247.2 144.0 67.6 211.59 0.0 0.0 Total Sleep Time (%) 43% 39% 18% 57 0% N/A% Total Sleep Time REM (min.) 0.0 15.0 11.0 None 0.0 0.0 Total Sleep Time NREM (min.) 157.4 129.0 56.6 None 0.0 0.0 Intermittent Wake (min.) 89.8 19.1 12.6 None 0.0 0.0 Total Sleep Period (%) 44% None None None None None Arousals Myoclonus (PLM) * Events Count Index Events Count Index Spontaneous 4 1 Events Awake (PLMW) 234 115.6 Respiratory 2 0.3 Events Asleep w/ Arousal (PLMA) 20 3.3 PLM 20 3 Events Asleep w/o Arousal (PLMS) 313 50.9 Snoring 12 2 Total Asleep 333 54.1 Total 37 6 Total 567 69 Respiratory Analysis * CA OA MA CH H RERA Total Count 0 27 0 0 83 1 110 Index 0.0 4.4 0.0 0 13.5 0 18.0 Mean Duration 0.0 17.7 0.0 0.00 22.6 19.6 21.4 Longest Duration 0.0 25.3 0.0 0.00 0.0 19.6 56.4 Respiratory Event Summary Total Supine ~Supine Right Left Prone REM NREM Apneas Count 27 27 0 0 0 N/A 0 27 Index 4.4 10 0 0.0 0.0 N/A 0 5 Hypopneas (4% Desat) Count 83 83 0 0 0 N/A 0 83 Index 13.5 31.6 0 0.0 0.0 N/A 0.0 14.5 Apneas & All Hypopneas Count 110 110 0 0 0 N/A 0 110 Index 17.9 42 0 0 0 N/A 0.0 19.2 Respiratory Events (Multiple Cut Off Saw Operator+All Hyp+RERA) Count 110 111 0 0 0 N/A 0 110 Index 18.0 42 0 0.0 0.0 N/A 0.0 19.4 Respiratory Related Arousal Count 2 111 0 0 0 N/A 0 2 Index 0.3 1 0 0 0 N/A 0 0 Snoring Analysis Supine Right Left Prone REM NREM Total Snore duration 3.6 min Snores count 90 20 11 N/A 4 117 121 Snore mean duration 1.8 Sec Snores index 34 8 10 N/A 9.2 20.5 19.7 TST with snoring (%) 1.0% Desaturation Event Summary: Minimum %SpO2 Event Count Mean/Min/Max Duration(sec.) Desaturation Index % Time In Bed > 90 44 20.1 / 10.0 / 53.0 10.5 52.8 86 - 90 108 16.7 / 6.8 / 51.0 31.4 43.5 81 - 85 4 11.8 / 6.8 / 17.5 14.1 3.6 76 - 80 1 15.0 / 15.0 / 15.0 135.8 0.1 71 - 75 0 N/A 0.0 0.0 66 - 70 0 N/A 0.0 0.0 61 - 65 0 N/A 0.0 0.0 56 - 60 0 N/A 0.0 0.0 51 - 55 0 N/A 0.0 0.0 < 50 0 N/A 0.0 0.0 Total REM NREM Awake <50% 0.0 min. 0.0 min. 0.0 min. 0.0 min. 51 - 60% 0.0 min. 0.0 min. 0.0 min. 0.0 min. 61 - 70% 0.1 min. 0.0 min. 0.0 min. 0.1 min. 71 - 80% 0.4 min. 0.0 min. 0.3 min. 0.2 min. 81 - 90% 223.4 min. 3.1 min. 214.9 min. 5.5 min. 91 - 100% 250.7 min. 22.9 min. 126.7 min. 101.0 min. Average 91 91 90 93 Minimum SpO2 64 90 79 64 Desaturation Event Index 13.9 0.0 19.4 1.5 # Desat. Events below 89% 111 N/A 109 2 Time(%) with Saturation below 89% 12.4 0.0 11.9 0.5 Time(min.) with Saturation below 89% 59.0 0.0 56.4 2.5 Time (mins) REM (mins) NREM (mins) % of TST SpO2 Below 90% 111 N/A N111 35.6 SpO2 Below 88% 30 0 0 9 Heart Rate Analysis Min (bpm) Max (bpm) Average (bpm) Awake 57 209 75 NREM 56 85 65 REM 57 65 60 Overall 56 85 64 Supplemental O2 Values Minimum O2 level: None Value Start Time End Time Assistant Professor Of Music Comments Mrs. Bojorquez slept in the right, left, and supine e positions. No cardiac arrhythmia. PLMs noted. No bruxism noted. Snoring was noted and scored as a 1 on a scale of 0 through 5. (0=no snoring, 5=snoring loud enough to be heard through a closed door or down the johansen way) Mrs. Bojorquez awoke to use the restroom three times during the night. Mrs. Bojorquez stated, that she usually sleeps better at home. The final report will be interpreted and signed by a sleep physician. The completed physician report will then be placed in the patient medical record. Therapy (cm H2O) 0 TIB (min.) 490.5 TST (min.) 369.0 Sleep Onset (min.) 81.0 REM Onset From Sleep (min.) 27.5 Sleep Efficiency % 75 Wakefulness (%) 25 Wakefulness (min.) 121.5 NREM 1 (%) 5 NREM 1 (min.) 20.0 NREM 2 (%) 76 NREM 2 (min.) 280.0 NREM 3 (%) 12 NREM 3 (min.) 43.0 REM (%) 7 REM (min.) 26.0 # Arousals 37 Arousal Index 6 # Snore 121 Snore Index 19.7 AHI 17.9 AHI Supine 42 AHI Non-Supine 0 NREM AHI 19.2 REM AHI 0.0 RDI 18.0 # Obstructive Apnea 27 # Central Apnea 0 # Mixed Apnea 0 # Hypopneas 83 RERAs 1 Total Respiratory Events 112 Time Below SpO2 89% (min.) 56.4 Mean NREM SpO2 (%) 90 Mean REM SpO2 (%) 91 Mean Sleep SpO2 (%) 90 Min NREM SpO2 (%) 79 Min REM SpO2 (%) 90 Position Supine (min.) 247.2 Position Non-supine (min.) 211.6 LM Index Sleep 54.1 LM Index NREM 53.4 LM Index REM 64.6 Mean Heart Rate (bpm) 64 Min Heart Rate (bpm) 56
--- NOTE | 2017-09-26 11:07 | POLYSOMNOGRAPH REPORT ---
CLINICAL DATA: A 67 year old female with a BMI of 29.[address] Sierra for a possible split night study. Apparently she had sleep apnea diagnosed in the past in 2010. SLEEP ARCHITECTURE: Total sleep period was 409.5 minutes. Total sleep time was 369 minutes divided between 343 minutes of non-REM sleep and 26 minutes of REM sleep. Sleep onset latency was delayed at 81 minutes. REM latency was 27.5 minutes. Sleep efficiency was 75%. Wake after sleep onset was 40.5 minutes. Sleep consisted of stage N1 5, stage N2 76%, stage N3 12%, and REM 7%. AROUSAL DATA: 37 arousals were recorded for an index of 6 per hour. PLM DATA: Significantly elevated limb movements during sleep were noted. There were 333 limb movements during sleep noted for an index of 54.1 per hour with arousal index of 3.3 per hour. RESPIRATORY DATA: Moderate sleep apnea was documented. The AHI was 17.9. There were 27 obstructive apneic episodes. The longest apneic episode was 25.3 seconds. There were 83 hypopneic episodes with a mean duration of 22.6 seconds. OXIMETRY DATA: Nocturnal hypoxemia was seen. Oxygen suleiman was 79% during non-REM sleep. Mean saturation was 91%. Time below 88% was 30 minutes. EKG: Heart ranged from 56-85 beats per minute. No arrhythmias were noted. FARM RANCHER'S COMMENTS: The patient slept in the right, left, and supine positions. Snoring was mild, rated 1 on a scale of 1-5. The patient did not achieve split night criteria early enough in the night to begin CPAP. The majority of her obstructive apneic episodes and hypopneic episodes occurred after 3:00 a.m. IMPRESSION: Moderate sleep apnea/hypopnea with nocturnal hypoxemia. RECOMMENDATIONS: The patient should be considered for a sleep study with CPAP. Sleep medicine consultation may be of benefit. CORY
== END | disposition home or self-care (01) ==
LOC: C.NEUR 20:00
PROVIDERS: ATTEND Internal Medicine
DX: G47.30 Sleep apnea, unspecified (principal)

== ENCOUNTER → 2017-10-27 | Day surgery (SDC) | payer OTHER ==
[2017-10-13 08:36] VITALS: Ht 157.5 cm; Wt 67.3 kg
[~2017-10-27] VITALS: Ht 157.5 cm; Wt 67.3 kg
[~2017-10-27] MED LIST changes: -CPR500 PO; +FENTANYL CITRATE INJ 50 MCG/1 ML 2 ML VIAL ONE; -HYDR-5688 PO; -LCTX PO; +LIDOCAINE HCL 2% 2 ML VIAL (20MG/ML) ONE; -METO50TA8 PO; -MTR500 PO; +MULTTAB58 PO; -ONDA4TAB10 SL; +PROPOFOL IV EMULSION 10 MG/ML 20 ML VIAL ONE; +SODIUM CHLORIDE 0.9% 500ML 500 ML IV ONE; +VALS40TA2 PO
--- NOTE | 2017-10-27 11:54 | Endo History and Physical ---
History & Physical Date of Service: October 27, 2017. Chief Complaint: Diverticulitis Referring Physician: Dr. Sierra History of Present Illness 67 yo CF who presents for colonoscopy secondary to diverticulitis. Past Medical History Arthritis, Reflux, Cancer, High Cholesterol, Sleep Apnea, Hypertension Past Surgical History Hx Cardiac Surgery: Yes (HEART CATH-NO STENTS) Hx Internal Defibrillator: No Hx Pacemaker: No Hx of Implantable Prosthesis: No Hx Post-Op Nausea and Vomiting: No Hx Cancer Surgery: Yes (RT BREAST MASTECTOMY WITH RECONSTRUCTION) Hx Thoracic Surgery: No Hx Orthopedic: Yes (RT TKA) Hx Urinary Tract Surgery: No Social History Smoking Status: Never Smoker Hx Substance Use: No Hx Alcohol Use: Yes (RARELY) Allergies Coded Allergies: Bisphosphonates (Verified Adverse Reaction, Unknown, INTOLERANT-STOMACH AND CHEST PAINS, 10/27/17) Current Medications Reported Home Medications Medications Dose Route/Sig Max Daily Dose Days Date Category Multivitamin (Multiple Vitamin) 1 Tab Tab 1 Tab PO QAM 10/13/17 Reported Diovan (Valsartan) 40 Mg Tab 40 Mg PO QAM 10/13/17 Reported Nexium (Esomeprazole Magnesium) 40 Mg Capcr 40 Mg PO QAM 10/13/17 Reported Aspirin Ec (Aspirin) 325 Mg Tab 325 Mg PO QAM 08/20/17 Reported Zetia (Ezetimibe) 10 Mg Tab 10 Mg PO QAM 05/26/17 Reported Crestor (Rosuvastatin Calcium) 40 Mg Tab 40 Mg PO QAM 10/06/15 Reported Vital Signs Weight (Kilograms): 67.27 Height (Feet): 5 Height (Inches): 2 Date Time Temp Pulse Resp B/P (MAP) Pulse Ox O2 Delivery O2 Flow Rate FiO2 10/27/17 10:57 36.7 80 18 169/90 (116) 99 Room Air Physical Exam General Appearance: WD/WN, no apparent distress Respiratory/Chest: Auscultation: breath sounds normal Cardiovascular: Heart Auscultation: RRR Abdomen: Bowel Sounds: normal Inspection & Palpation: soft, non-distended, no tenderness, guarding & rebound Assessment and Plan Assessment: 67 yo CF who presents for colonoscopy secondary to diverticulitis. Plan: Proceed with colonoscopy.
--- NOTE | 2017-10-27 12:29 | GI REPORT ---
Patient Name: Johanna Bojorquez Procedure Date: 10/27/2017 11:11 AM Date of : 1950 Admit Type: Outpatient Age: 67 Gender: Female Attending MD: Hima Montenegro DO Procedure: Colonoscopy Providers: Hima Montenegro DO Referring MD: Jamey Sierra Indications: Follow-up of diverticulitis Medicines: Monitored Anesthesia Care Complications: No immediate complications. Estimated Blood Loss: Estimated blood loss: none. Procedure: Pre-Anesthesia Assessment: - Prior to the procedure, a History and Physical was performed, and patient medications and allergies were reviewed. The patient's tolerance of previous anesthesia was also reviewed. The risks and benefits of the procedure and the sedation options and risks were discussed with the patient. All questions were answered, and informed consent was obtained. Prior Anticoagulants: The patient has taken aspirin, last dose was 2 days prior to procedure. ASA Grade Assessment: III - A patient with severe systemic disease. After reviewing the risks and benefits, the patient was deemed in satisfactory condition to undergo the procedure. After I obtained informed consent, the scope was passed under direct vision. Throughout the procedure, the patient's blood pressure, pulse, and oxygen saturations were monitored continuously. The scope was introduced through the anus and advanced to the terminal ileum. The colonoscopy was performed without difficulty. The patient tolerated the procedure well. The quality of the bowel preparation was good. The terminal ileum, ileocecal valve, appendiceal orifice, and rectum were photographed. Findings: The perianal and digital rectal examinations were normal. A 5 mm polyp was found in the descending colon. The polyp was sessile. The polyp was removed with a hot snare. Resection and retrieval were complete. Multiple small-mouthed diverticula were found in the sigmoid colon. Non-bleeding internal hemorrhoids were found during retroflexion. The hemorrhoids were small. Impression: - One 5 mm polyp in the descending colon, removed with a hot snare. Resected and retrieved. - Diverticulosis in the sigmoid colon. - Non-bleeding internal hemorrhoids. Recommendation: - Resume previous diet. - Continue present medications. - Repeat colonoscopy for surveillance based on pathology results. - Return to primary care physician as previously scheduled. Hima Montenegro DO 10/27/2017 12:29:26 PM This report has been signed electronically. Note Initiated On: 10/27/2017 11:11 AM Number of Addenda: 0 I attest to the content of the Intraoperative Record and orders documented therein, exceptions below {[id number]}
--- NOTE | 2017-10-27 12:33 | Discharge Instructions ---
Endoscopy Patient Instructions Date / Procedure(s) Performed October 27, 2017. Colonoscopy Allergy Information Coded Allergies: Bisphosphonates (Verified Adverse Reaction, Unknown, INTOLERANT-STOMACH AND CHEST PAINS, 10/27/17) Discharge Date / Findings October 27, 2017. Colon polyp Diverticulosis Internal hemorrhoids Medication Instructions Stopped Medication(s): Aspirin last dose 10/25/17. OK to resume all medications today as prescribed Reported Home Medications Medications Dose Route/Sig Max Daily Dose Days Date Category Multivitamin (Multiple Vitamin) 1 Tab Tab 1 Tab PO QAM 10/13/17 Reported Diovan (Valsartan) 40 Mg Tab 40 Mg PO QAM 10/13/17 Reported Nexium (Esomeprazole Magnesium) 40 Mg Capcr 40 Mg PO QAM 10/13/17 Reported Aspirin Ec (Aspirin) 325 Mg Tab 325 Mg PO QAM 08/20/17 Reported Zetia (Ezetimibe) 10 Mg Tab 10 Mg PO QAM 05/26/17 Reported Crestor (Rosuvastatin Calcium) 40 Mg Tab 40 Mg PO QAM 10/06/15 Reported Provider Instructions Activity Restrictions - No exercising or heavy lifting for 24 hours. - Do not drink alcohol the day of the procedure. - Do not drive a car or operate machinery until the day after the procedure. - Do not make any important decisions or sign important papers in 24 hours after the procedure. Following Day: - Return to full activity which may include returning to work/school. Diet Start your diet with liquids and light foods (jello, soup, juice, toast). Then eat your usual diet if not nauseated. Treatment For Common After Affects For mild abdominal pain, bloating, or excessive gas: - Rest - Eat lightly - Lie on right side Follow-Up Information Follow-up with Dr. Sierra as scheduled Anesthesia Information What You Should Know You have had a procedure that required some medicine to reduce anxiety and discomfort. This treatment is called moderate sedation. After receiving the treatment, you may be sleepy, but you will be able to breathe on your own. The effects of the treatment may last for several hours. Follow these instructions along with Activity/Diet recommendations noted above: * Do NOT do anything where dizziness or clumsiness would be dangerous. * Rest quietly at home today, then you can be up and about tomorrow. * Have a responsible person stay with you the rest of today. * You may have had an I.V. today. If so, you may take the dressing off later today. Recommendations Call your doctor if: * Trouble breathing * Continuous vomiting for more than 24 hours * Temperature above 101 degrees * Severe abdominal pain or bloating * Pain not relieved by pain medicine ordered * There is increased drainage or redness from any incision * A large amount of rectal bleeding greater than 2-3 tablespoons. (If you had a polyp/s removed or have hemorrhoids, a small amount of blood - from the rectum is to be expected.) * You have any unanswered questions or concerns. IN THE EVENT OF A SERIOUS EMERGENCY, GO TO THE NEAREST EMERGENCY ROOM Your discharge instructions were prepared by provider Hima Montenegro. Patient Instructions Signature Page Johanna Bojorquez Patient (or Guardian) Signature/Date: I have read and understand the instructions given to me by my caregivers. Caregiver/RN/Doctor Signature/Date: The above-named patient and/or guardian has received patient instructions on this date. + Original Patient Signature Page (only) stays with chart. Please make copy for patient.
[2017-10-27 12:50] VITALS: BP 153/90; PULSE 59; O2SAT 99
--- NOTE | 2017-10-27 14:04 | Anesthesiology Progress Note ---
Anesthesia Post Op Note Date & Time October 27, 2017 at 14:04 Vital Signs Pain Intensity: 0 Vital Signs Past 12 Hours Date Time Temp Pulse Resp B/P (MAP) Pulse Ox O2 Delivery O2 Flow Rate FiO2 10/27/17 12:50 59 18 153/90 (111) 99 Room Air 10/27/17 12:35 67 18 151/87 (108) 99 Room Air 10/27/17 12:20 78 18 124/75 (91) 98 Room Air 10/27/17 10:57 36.7 80 18 169/90 (116) 99 Room Air Notes Mental Status: alert / awake / arousable, participated in evaluation Pt Amnestic to Procedure: Yes Nausea / Vomiting: adequately controlled Pain: adequately controlled Airway Patency, RR, SpO2: stable & adequate BP & HR: stable & adequate Hydration State: stable & adequate Anesthetic Complications: no major complications apparent
== END | disposition home or self-care (01) ==
LOC: C.GI 10:32
PROVIDERS: ATTEND Internal Medicine
DX: Z09 Encounter for follow-up examination after completed treatment for conditions other than malignant neoplasm (principal); D12.4 Benign neoplasm of descending colon; K57.30 Diverticulosis of large intestine without perforation or abscess without bleeding; K64.8 Other hemorrhoids; G47.33 Obstructive sleep apnea (adult) (pediatric); Z96.651 Presence of right artificial knee joint; Z85.3 Personal history of malignant neoplasm of breast; Z90.11 Acquired absence of right breast and nipple; Z79.82 Long term (current) use of aspirin; Z79.899 Other long term (current) drug therapy

== ENCOUNTER → 2017-10-30 | Day surgery (SDC) | payer OTHER ==
[2017-10-13 08:47] VITALS: Ht 157.5 cm; Wt 67.3 kg
[~2017-10-30] VITALS: Ht 157.5 cm; Wt 67.3 kg
[~2017-10-30] MED LIST changes: -FENTANYL CITRATE INJ 50 MCG/1 ML 2 ML VIAL ONE; +IOPAMIDOL INJ 61% 15 ML VIAL ONE; +LIDOCAINE HCL 1% MPF 5 ML VIAL ONE; -LIDOCAINE HCL 2% 2 ML VIAL (20MG/ML) ONE; -PROPOFOL IV EMULSION 10 MG/ML 20 ML VIAL ONE; -SODIUM CHLORIDE 0.9% 500ML 500 ML IV ONE; +SODIUM CHLORIDE 0.9% INJ 10 ML VIAL ONE
--- NOTE | 2017-10-30 15:07 | [facility] Post Operative Brief Note ---
Immediate Operative Summary Operative Date October 30, 2017. Pre-Operative Diagnosis LUMBAR SPINAL STENOSIS WITH NEOROGENIC CLAUDICATION Post-Operative Diagnosis LUMBAR SPINAL STENOSIS WITH NEOROGENIC CLAUDICATION Procedure(s) Performed LUMBAR EPIDURAL STERIOD INJECTION VIA CAUDAL APPROACH Surgeon DR. Julia MAGAÑA Director Telehealth Surgeon(s) None Estimated Blood Loss O Findings Consistent with Post-Op Diagnosis Specimens NA Drains None Anesthesia Type Local Complication(s) none Disposition Disposition:
[2017-10-30 15:08] VITALS: TEMP 36.8
--- NOTE | 2017-10-30 15:08 | Discharge Instructions ---
Discharge Instructions Date of Service October 30, 2017. Visit Reason for Visit: Spinal Stenosis, Lumbar Region Discharge Discharge Diagnosis / Problem: leg pain Discharge Goals Goal(s): Decrease discomfort, Improve function Medications Stopped Medications Name(s): aspirin stopped. last dose on friday morning. Activity Recommendations Activity Limitations: resume your previous activity Anesthesia . Post Anesthesia Instructions: If you have had General Anesthesia or IV Sedation: * Do not drive today. * Resume driving when surgeon permits. * Do not make important decisions or sign legal documents today. * Call surgeon for: 1. Temperature elevations greater than 101 degrees F. 2. Uncontrollable pain. 3. Excessive bleeding. 4. Persistent nausea and vomiting. 5. Medication intolerance (nausea, vomiting or rash). * For nausea and vomiting use only clear liquids such as: tea, soda, bouillon until nausea subsides, then gradually increase diet as tolerated. * If you have any concerns or questions, call your surgeon's office. If physician is unavailable and it is an emergency, call 911 or go to the nearest emergency room. . Diet Recommendations Recommended Home Diet: resume previous diet Procedures Procedures Performed: LUMBAR EPIDURAL STERIOD INJECTION VIA CAUDAL APPROACH Pending Studies Studies pending at discharge: no Medical Emergencies . Who to Call and When: Medical Emergencies: If at any time you feel your situation is an emergency, please call 911 immediately. . Non-Emergent Contact Non-Emergency issues call your: Specialist . . "Provider Documentation" section prepared by Elijah May. .
[2017-10-30 15:30] VITALS: BP 137/87; PULSE 90; O2SAT 96
--- NOTE | 2017-10-30 20:14 | OPERATIVE REPORT ---
DATE OF OPERATION: 10/30/2017 PREOPERATIVE DIAGNOSIS: Lumbar spinal stenosis with neurogenic claudication. POSTOPERATIVE DIAGNOSIS: Lumbar spinal stenosis with neurogenic claudication. PROCEDURE: Caudal epidural steroid injection under fluoroscopic guidance. INDICATIONS: The patient is a 67-year-old white female who underwent an epidural steroid injection on 06/18/2017, did well. Just recently, she began having a return of radicular complaints and presents today for an epidural injection, it will be given via the caudal approach as she took an aspirin 2 days ago 325 mg. PHYSICAL EXAMINATION: Pleasant female seated comfortably. She has no tenderness to palpation. She had no limitations with forward flexion or extension. She had normal lower extremity strength. Subjective sensation was decreased in the right S1 dermatomal distribution. Negative seated straight leg raises. CONSENT: Verbal and written consent was obtained from the patient. Risks and benefits were reviewed. Risks include, but are not limited to epidural abscess, epidural hematoma, allergic reaction, dural puncture. The patient wishes to proceed. DESCRIPTION OF PROCEDURE: The patient was taken back to the special [facility] of [facility]. She was maintained in a prone position. Backside was cleansed with Betadine x3 and a dry sterile dressing was applied. Fluoroscope was used to identify the sacral hiatus and overlying skin was anesthetized with 4 mL of lidocaine 1% with a 25-gauge 1.5-inch needle. A 25-gauge 3.5-inch spinal needle was then directed into the sacral hiatus and into the sacral canal was advanced under lateral fluoroscopic guidance. She then underwent injection after negative aspiration of 40 mg of Depo-Medrol and 4 mL of preservative free sodium chloride. Injection was well tolerated. DISPOSITION: The patient is taken out into the discharge recovery area where she will be discharged home once discharge criteria are met. Followup in 4 weeks in the [facility] office. I attest to the content of the Intraoperative Record and any orders documented therein. Any exception s are noted below.
== END | disposition home or self-care (01) ==
LOC: X.SURG 14:01
PROVIDERS: ATTEND Physical Medicine & Rehabilitation
DX: M48.062 Spinal stenosis, lumbar region with neurogenic claudication (principal)

== ENCOUNTER 2023-07-16 15:35 | Observation (INO) ==
--- NOTE | 2023-07-16 16:17 | ED Triage Note ---
Date of Service July 16, 2023 Provider in Triage Author: Johnny Nuñez History of Present Illness This patient was briefly evaluated while in triage. An abbreviated physical exam was performed. This patient is a 73-year-old Female who presents to the ED for evaluation of diarrhea for the past 5 days. She is feeling weak and dehydrated. She has also been having decreased Hgbs recently. Denies hematochezia, melena, hematuria, hemoptysis, or hematemesis. Denies chest pain or SOB. Has some lower abdominal pain. Was seen in the ER on 07/14/[address] scan that showed pancolitis. Was unable to give stool sample in ER, but gave stool sample at [facility], but they are unsure of the results. Hgb dropped to 7.9 this morning. Physical Exam GENERAL: The patient appears weak, but non-toxic and in no acute distress. HEENT: Pupils equal. No obvious scleral icterus. HEART: Regular rate and rhythm. LUNGS: Clear to auscultation. No accessory muscle use. ABDOMEN: Soft, minimal diffuse tenderness. No guarding, rigidity, or rebound tenderness. NEURO: Alert and oriented. No obvious neurological deficits on quick neuro exam. Initial orders for labs and / or imaging were placed and patient was placed in the waiting area until a bed is available. Please see further documentation for the full ED course.
[2023-07-16] MEDS: SODIUM CHLORIDE 0.9% 1,000 ML IV STA (16:40)
[2023-07-16 17:00] LABS: Basophils # (auto) 0.06 K/uL (0.00-0.20); Basophils % (auto) 0.4 %; Eosinophils # (auto) 0.65 K/uL (0.00-0.50); Eosinophils % (auto) 4.7 %; Hematocrit (blood only) 29.2 % (37.0-47.0); Hemoglobin 8.7 g/dl (12.0-16.0); Immature Granulocytes # (auto) 0.06 K/uL (0.01-0.20); Immature Granulocytes % (auto) 0.4 %; Lymphocytes # (auto) 2.54 K/uL (1.20-3.40); Lymphocytes % (auto) 18.5 %; Mean Corpuscular Hemoglobin 21.9 pg (25.0-34.0); Mean Corpuscular Hgb Conc 29.8 g/dL (32.0-36.0); Mean Corpuscular Volume 73.4 fL (80.0-100.0); Mean Platelet Volume 9.8 fL (9.4-12.4); Monocytes # (auto) 1.24 K/uL (0.11-0.59); Neutrophils # (auto) 9.18 K/uL (1.40-6.50); Platelet Count 440 K/uL (130-400); RDW Coefficient of Variation 19.2 % (11.5-14.5); RDW Standard Deviation 50.4 fL (36.4-46.3); Red Blood Count 3.98 M/uL (4.20-5.40); White Blood Count 13.73 K/ul (4.8-10.8)
[2023-07-16 17:03] LABS: Albumin Globulin Ratio 1.2 (0.9-2); Albumin Level 3.8 gm/dl (3.4-5.0); BUN Creatinine Ratio 13.1 (10-20); Bilirubin,Total 0.2 mg/dl (0.2-1.0); Calcium 8.8 mg/dl (8.6-10.3); Creatinine Clr Calc Pharmacy 47.2 ml/min; Est GFR (African American) 64.6 ml/min; Est GFR (Non-African American) 55.7 ml/min; Globulin 3.1 gm/dl (2.5-4.0); Magnesium 1.8 mg/dl (1.7-2.4); Potassium 3.7 mmol/L (3.5-5.1); Total Protein 6.9 gm/dl (6.0-8.3)
[2023-07-16 17:11] LABS: Troponin I High Sensitivity 6.5 pg/ml (0-14)
[2023-07-16 17:14] LABS: INR 0.9 (0.9-1.1); Partial Thromboplastin Ratio 0.8; Partial Thromboplastin Time 22 Seconds (21-31); Prothrombin Time 10.4 Seconds (9.0-12.0)
--- NOTE | 2023-07-16 18:20 | XRay Report ---
XR chest 1V portable HISTORY: Chest pain, nonspecific COMPARISON: Chest 11/14/2022. FINDINGS: No pneumothorax. No pleural effusions. The heart remains mildly enlarged. No evidence for p ulmonary edema. There are surgical clips within the right axilla. A few bibasilar linear densities fa vor subsegmental atelectasis or scarring. Otherwise, no new focal lung consolidations to suggest a pn eumonia. There is a small hiatus hernia. There are calcifications within the aortic knob. No acute fr actures identified. IMPRESSION: 1. Mild cardiomegaly again noted. 2. No evidence for pulmonary edema. 3. Bibasilar linear densities favor subsegmental atelectasis. ACT 112: Negative or not required by law. Electronically signed by: Todd Beach M.D. 07/16/2023 6:19 PM
--- NOTE | 2023-07-16 19:09 | Emergency Department Note ---
Impression & Plan Diarrhea, Anemia ED Provider Note NAME: THIERRY MONTGOMERY AGE: 73 SEX: F : 1950 ARRIVES VIA: Walk-In INFORMANT: Patient, ED PROVIDER(S): Becka Rodriguez MD CHIEF COMPLAINT: Low hemoglobin, nausea vomiting diarrhea HPI: This 73-year-old female presenting for nausea vomiting diarrhea. Patient states that she was here few days ago with similar symptoms. Had a CT of the ab/pelvis revealed pancolitis. She had blood work drawn as well. This morning they did blood work at around 6 AM and noted that she had a drop in hemoglobin. She was sent in for this drop in hemoglobin as well as persistent nausea vomiting diarrhea. Patient tells me that she had a stool study done at [facility], [place] which revealed no C. difficile. Otherwise patient states she could not have a bowel movement here. She has been eating much less as every time she does eat she has diarrhea. She notes crampy abdominal pain that is persistent. No recent fever, chills, chest pain or shortness of breath. ROS: See above HPI for pertinent positives & negatives. A total of 10 systems reviewed and were otherwise negative. PAST MEDICAL HISTORY: See Below PAST SURGICAL HISTORY: See Below FAMILY HISTORY: See Below SOCIAL HISTORY: See Below HOME MEDICATIONS: See Below ALLERGIES: See Below VITALS: See Below PHYSICAL EXAMINATION: General: resting comfortably in no acute distress Head: Normocephalic and atraumatic Eyes: Normal inspection, extraocular muscles intact Ear, nose, throat: Normal external exam Neck: Normal range of motion Respiratory: lungs clear to auscultation bilaterally Cardiovascular: Regular rate/rhythm, no murmur GI: soft, nontender, no guarding or rebound Extremities: nontender, moves all extremities Neuro: The patient awake and alert, appropriately conversive, no focal deficits, symmetric faces Skin: Warm, dry, and intact MEDICAL DECISION MAKING: This is a 73-year-old female presenting for nausea vomiting, diarrhea and low hemoglobin. Patient had a hemoglobin drop this morning, hemoglobin 7.9. Today upon repeat check it is back up to 8.7. Unclear if this is lab error. Patient overall has continued symptoms of pancolitis. Patient not improving. -Provide lab work reviewed without significant abnormalities. -Patient has reassuring physical exam without abdominal tenderness -Discussed with patient option including discharge home with waiting versus admission to monitor H&H At this time patient would prefer admission Differential diagnosis: SBO, colitis, GI bleed ER treatment provided: See below Diagnostics interpreted by me: ECG: ECG independently interpreted by me with normal sinus rhythm, rate of 70, normal [place], normal QRS, normal QTc, no ST segment elevations consistent with STEMI criteria, poor R wave progression Cardiac Monitoring: An order was placed for continuous cardiac monitoring. The monitor shows a rate of 72 with sinus rhythm. Laboratory studies: As stated above and show below. Imaging studies: See below. Past Med/Surg History Medical History (Updated 07/17/23 @ 12:30 by Becka Rodriguez MD) Hx of breast cancer right>surgery and chemo *rt arm restriction Hyperlipidemia Sleep apnea no device Restless leg syndrome Insomnia Osteoporosis GERD (gastroesophageal reflux disease) Hypertension Surgical History History of cataract surgery History of esophagogastroduodenoscopy (EGD) History of colonoscopy History of section x 1 History of tooth extraction History of tonsillectomy and adenoidectomy S/P right mastectomy (1992) with reconstruction Family History Other No family history of adverse response to anesthesia Social History Smoking Status: Never smoker Second Hand Exposure: No; Do You Dip or Chew Tobacco: No; Hx Alcohol Use: Yes Alcohol type: wine Hx Substance Use: No Preferred Language: Mosotho Communication Ability: Effective Roll Off Driver Required: No Beliefs That Will Affect Care: None Current Living Situation: Spouse Other Information That Helps Us Care for You: No Feels Safe at Home: Yes Safety Concerns: Feels Safe At This Time Assistive Devices: None Allergies Allergies Allergy/AdvReac Type Severity Reaction Status Date / Time Bisphosphonates AdvReac Chest Pain Verified 07/17/23 08:32 Home Meds Home Medications Medication Instructions Recorded Confirmed celecoxib 100 mg capsule 100 mg PO BID PRN Pain 05/31/19 07/16/23 ezetimibe 10 mg tablet 10 mg PO QAM 05/31/19 07/16/23 rosuvastatin 40 mg tablet 40 mg PO HS 05/31/19 07/16/23 esomeprazole magnesium 20 mg 20 mg PO QAM 06/10/20 07/16/23 capsule,delayed release (Nexium 24HR) candesartan 8 mg tablet 8 mg PO QAM 05/28/23 07/16/23 famotidine 20 mg tablet 20 mg PO QPM 05/28/23 07/16/23 pramipexole 1 mg tablet 1 mg PO HS 05/28/23 07/16/23 propranolol 20 mg tablet 20 mg PO QPM 05/28/23 07/16/23 quetiapine 100 mg tablet (Seroquel) 100 mg PO HS 05/28/23 07/16/23 Results & Data (ED) Vital Signs Vital Signs - 24 hr 07/16/23 16:16 07/16/23 16:20 07/16/23 16:41 Temperature 36.7 C Temperature Source Temporal Artery Scan Pulse Rate 73 Pulse Rate [Apical] 97 H Respiratory Rate 16 18 Respiratory Effort / Characteristics Non-Labored Spontaneous Respiratory Depth Normal Blood Pressure 113/77 Blood Pressure [Left Arm] 131/63 Blood Pressure Mean 89 Blood Pressure Mean [Left Arm] 85 Pulse Oximetry 97 97 99 Oxygen Delivery Method Room Air Room Air Room Air Sepsis Recent Fever Within 48 Hours No Sepsis New/Unexplained Change in Mental Status No Sepsis Action Taken by Nursing No Action Required 07/16/23 17:02 07/16/23 18:00 07/16/23 20:00 Temperature 36.6 C Temperature Source Oral Pulse Rate 70 Pulse Rate [Apical] 68 71 Respiratory Rate 18 18 Respiratory Effort / Characteristics Respiratory Depth Blood Pressure Blood Pressure [Left Arm] 131/63 131/63 Blood Pressure Mean Blood Pressure Mean [Left Arm] 85 85 Pulse Oximetry 97 97 Oxygen Delivery Method Room Air Sepsis Recent Fever Within 48 Hours Sepsis New/Unexplained Change in Mental Status Sepsis Action Taken by Nursing Laboratory Data 07/17/23 06:02 07/17/23 06:02 Lab Results 07/16/23 Range/Units 16:30 WBC 13.73 H (4.8-10.8) K/ul RBC 3.98 L (4.20-5.40) M/uL Hgb 8.7 L (12.0-16.0) g/dl Hct 29.2 L (37.0-47.0) % MCV 73.4 L (80.0-100.0) fL MCH 21.9 L (25.0-34.0) pg MCHC 29.8 L (32.0-36.0) g/dL RDW Std Deviation 50.4 H (36.4-46.3) fL RDW Coeff of Nael 19.2 H (11.5-14.5) % Plt Count 440 H (130-400) K/uL MPV 9.8 (9.4-12.4) fL Immature Gran % (Auto) 0.4 % Neut % (Auto) 67.0 % Lymph % (Auto) 18.5 % [place] % (Auto) 9.0 % Eos % (Auto) 4.7 % Baso % (Auto) 0.4 % Neut # (Auto) 9.18 H (1.40-6.50) K/uL Lymph # (Auto) 2.54 (1.20-3.40) K/uL [place] # (Auto) 1.24 H (0.11-0.59) K/uL Eos # (Auto) 0.65 H (0.00-0.50) K/uL Baso # (Auto) 0.06 (0.00-0.20) K/uL Immature Gran # (Auto) 0.06 (0.01-0.20) K/uL PT 10.4 (9.0-12.0) Seconds INR 0.9 (0.9-1.1) APTT 22 (21-31) Seconds PTT Ratio 0.8 Sodium 138 (136-145) mmol/L Potassium 3.7 (3.5-5.1) mmol/L Chloride 108 H (98-107) mmol/L Carbon Dioxide 22 (21-32) mmol/L Anion Gap 8 (3-11) BUN 13 (6-23) mg/dl Creatinine 0.99 (0.6-1.2) mg/dl Est Cr Clr Drug Dosing 47.2 ml/min Est GFR ( Amer) 64.6 ml/min Est GFR (Non-Af Amer) 55.7 ml/min BUN/Creatinine Ratio 13.1 (10-20) Glucose 97 (70-99(Fasting)) mg/dl Lactate 1.4 (0.4-2.0) mmol/L Calcium 8.8 (8.6-10.3) mg/dl Magnesium 1.8 (1.7-2.4) mg/dl Total Bilirubin 0.2 (0.2-1.0) mg/dl AST 16 (13-39) U/L ALT 10 (7-52) U/L Alkaline Phosphatase 73 (34-104) U/L Troponin I High Sens 6.5 (0-14) pg/ml Total Protein 6.9 (6.0-8.3) gm/dl Albumin 3.8 (3.4-5.0) gm/dl Globulin 3.1 (2.5-4.0) gm/dl Albumin/Globulin Ratio 1.2 (0.9-2) Lipase 41 (11-82) U/L Procalcitonin < 0.05 (0-0.5) ng/ml Blood Type O Positive Antibody Screen NEGATIVE Administered Medications Ezetimibe (Ezetimibe 10 Mg Tab) 10 mg PO QAM KASEY Stop: 08/16/23 08:59 Last Admin: 07/17/23 08:34 Dose: 10 mg Documented By: ARI Famotidine (Famotidine 20 Mg Tab) 20 mg PO QPM KASEY Stop: 08/15/23 21:33 Last Admin: 07/16/23 22:12 Dose: 20 mg Documented By: ANDRES Lactated Ringer's (Lr) 1,000 mls @ 80 mls/hr IV .[id number] KASEY Stop: 07/17/23 22:33 Last Admin: 07/17/23 10:21 Dose: 80 mls/hr Documented By: HERMES Co-signed By: SUDHA Infusion: 07/17/23 10:21 Dose: Infused Documented By: HERMES Co-signed By: SUDHA Admin: 07/16/23 21:59 Dose: 80 mls/hr Documented By: ANDRES Losartan Potassium (Losartan Potassium 25 Mg Tab) 25 mg PO QA KASEY Stop: 08/16/23 08:59 Last Admin: 07/17/23 08:34 Dose: 25 mg Documented By: ARI Pantoprazole Sodium (Pantoprazole 40 Mg Tab) 40 mg PO DAILY KASEY Stop: 08/16/23 08:59 Last Admin: 07/17/23 08:34 Dose: 40 mg Documented By: ARI Pramipexole Dihydrochloride (Pramipexole Dihydrochlo 0.5 Mg Tab) 1 mg PO KASEY Stop: 08/15/23 21:33 Last Admin: 07/16/23 22:13 Dose: 1 mg Documented By: TKB Propranolol HCl (Propranolol Hcl 20 Mg Tab) 20 mg PO QPM KASEY Stop: 08/15/23 21:33 Last Admin: 07/16/23 22:13 Dose: 20 mg Documented By: TKB Quetiapine Fumarate (Quetiapine Fumarate 100 Mg Tablet) 100 mg PO HS KASEY Stop: 08/15/23 21:33 Last Admin: 07/16/23 22:13 Dose: 100 mg Documented By: TKB Rosuvastatin Calcium (Rosuvastatin Calcium 20 Mg Tab) 40 mg PO HS KASEY Stop: 08/15/23 21:33 Last Admin: 07/16/23 22:13 Dose: 40 mg Documented By: TKB Discontinued Medications Sodium Chloride (Nss) 1,000 mls @ 999 mls/hr IV .Q1H1M STA Stop: 07/16/23 17:19 Last Infusion: 07/16/23 17:44 Dose: Infused Documented By: Admin: 07/16/23 16:40 Dose: 999 mls/hr Documented By: AEF Potassium Chloride (Potassium Chloride Crtab 20 Meq Tabcr) 20 meq PO NOW STA Stop: 07/17/23 08:29 Last Admin: 07/17/23 08:34 Dose: 20 meq Documented By: KB Imaging Data Radiologist's Impression: Chest X-Ray 07/16/23 16:20 XR chest 1V portable HISTORY: Chest pain, nonspecific COMPARISON: Chest 11/14/2022. FINDINGS: No pneumothorax. No pleural effusions. The heart remains mildly enlarged. No evidence for pulmonary edema. There are surgical clips within the right axilla. A few bibasilar linear densities favor subsegmental atelectasis or scarring. Otherwise, no new focal lung consolidations to suggest a pneumonia. There is a small hiatus hernia. There are calcifications within the aortic knob. No acute fractures identified. IMPRESSION: 1. Mild cardiomegaly again noted. 2. No evidence for pulmonary edema. 3. Bibasilar linear densities favor subsegmental atelectasis. ACT 112: Negative or not required by law. Electronically signed by: Todd Beach M.D. 07/16/2023 6:19 PM Discharge Plan Visit Data Chief Complaint: Diarrhea Stated Complaint: DIARRHEA, HEMAGLOBIN DROPPING ED Provider: Becka Rodriguez Discharge Problem: Diarrhea, Anemia Patient Disposition: Admitted As Inpatient Discharge Instructions Interventions: ED Discharge Assessment Last Done: 07/16/23 21:24
--- NOTE | 2023-07-16 20:20 | History & Physical Report ---
Date of Service July 16, 2023 Assessment & Plan (1) Colitis: Plan: 73yo female with ongoing diarrhea for the last 6 days. Found to have aldana- colitis on CT during and ER visit 07/14/23. Patient returns the ER today after found to have a decreased hemoglobin on outpatient labs. She is afebrile, HD stable and non-toxic in appearance. Mild tenderness to the lower abdomen. Now with mild leukocytosis - WBC=13.73 with neutrophil predominance as well as mild increase in eosinophils. Hgb is stable when compared to value from 07/14/23 - Hbg=8.7. Suspect ongoing colitis - infectious vs inflammatory. Stool studies have been sent from [facility] including Salmonella/Shigella, Giardia and Campylobacter antigen, Shiga Toxin EIA and stool comments which are PENDING C. diff study from [facility] is NEGATIVE for C. diff gene. Patient has been unable to produce a stool sample here. -Observation to medical -Check Stool Biofire PCR when patient produces a sample -Check FOBT, C. Diff and Ova and Parasites -IVF with LR at 80mL/hr x 2 liters -Tylenol as needed for pain -Will hold on antibiotics for now pending collection of stool studies above (2) Dyslipidemia: Plan: Chronic. Stable -Continue Zetia 10mg po qAM -Continue Crestor 40m gpo qHS (3) Hypertension: Plan: Blood pressure mildly elevated at 150/74 -Pain control as needed -Continue Propranolol 20mg po qPM -Losartan 25mg po daily while inpatient - patient is on Candesartan at home, nonformulary History of Present Illness Chief Complaint: diarrhea Primary Care Provider: Jamey Sierra MD Johanna Bojorquez is a 73yo female with remote history of breast CA, HTN, HLP and GERD presenting with diarrhea. Patient was recently in [facility] for vacation. 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 She developed diarrhea around 07/11/23 - multiple episodes of watery diarrhea, 4- 5x daily. She reports passing "pure liquid" without blood or mucus. She has had nighttime symptoms as well as fecal incontinence. She does not feel that her diarrhea is associated with meals. She was seen in the ER on 07/14/23 with these complaints. She had a CT of the abdomen which revealed nonspecific aldana-colitis mostly involving the right colon - infectious vs inflammatory. She was treated with IVF and ultimately discharged home with instruction to followup with GI. Patient had labs performed by her PCP today which revealed a decrease in her Hgb to 7.9 so she was instructed to come to the ER. Patient reports ongoing diarrhea. No blood or mucus. Some dull lower abdominal discomfort that occurs mainly before bowel movements and is relieved by having a BM. She denies painful BMs or tenesmus. She denies fever, chills, abdominal distention, chest pain or shortness of breath. No recent antibiotic use. Patient reportedly tested NEGATIVE for C. diff at [facility]. In the Er she is afebrile, mildly hypertensive otherwise HD stable No stool sample provided as of yet ER Course: NSS x 1L Allergies Allergy/AdvReac Type Severity Reaction Status Date / Time Bisphosphonates AdvReac Mild INTOLERANT-STOMACH Uncoded 07/16/23 19:42 AND CHEST PAINS Home Medications Medication Instructions Recorded Confirmed Type celecoxib 100 mg capsule 100 mg PO BID PRN Pain 05/31/19 07/16/23 History ezetimibe 10 mg tablet 10 mg PO QAM 05/31/19 07/16/23 History rosuvastatin 40 mg tablet 40 mg PO HS 05/31/19 07/16/23 History esomeprazole magnesium 20 mg 20 mg PO QAM 06/10/20 07/16/23 History capsule,delayed release (Nexium 24HR) candesartan 8 mg tablet 8 mg PO QAM 05/28/23 07/16/23 History famotidine 20 mg tablet 20 mg PO QPM 05/28/23 07/16/23 History pramipexole 1 mg tablet 1 mg PO HS 05/28/23 07/16/23 History propranolol 20 mg tablet 20 mg PO QPM 05/28/23 07/16/23 History quetiapine 100 mg tablet (Seroquel) 100 mg PO HS 05/28/23 07/16/23 History Past Med/Surg History Medical History (Updated 07/16/23 @ 23:52 by Ellyn Hopkins DO) Hx of breast cancer right>surgery and chemo *rt arm restriction Hyperlipidemia Sleep apnea no device Restless leg syndrome Insomnia Osteoporosis GERD (gastroesophageal reflux disease) Hypertension Surgical History History of cataract surgery History of esophagogastroduodenoscopy (EGD) History of colonoscopy History of section x 1 History of tooth extraction History of tonsillectomy and adenoidectomy S/P right mastectomy (1992) with reconstruction Family History Other No family history of adverse response to anesthesia Social History Smoking Status: Never smoker Second Hand Exposure: No; Do You Dip or Chew Tobacco: No; Hx Alcohol Use: Yes Alcohol type: wine Hx Substance Use: No Preferred Language: Armenian Communication Ability: Effective Intelligent Systems Engineer Required: No Beliefs That Will Affect Care: None Current Living Situation: Spouse Other Information That Helps Us Care for You: No Feels Safe at Home: Yes Safety Concerns: Feels Safe At This Time Assistive Devices: None Review of Systems Review of Systems: All systems reviewed & are unremarkable except as noted in HPI & below Physical Exam Physical Exam: General: patient resting comfortably, NAD, non-toxic in appearance, AA&O x 4 Skin: warm, dry, intact, no rashes or lesions HEENT: NC/AT, PERRL, EOMI, anicteric sclera, conjunctiva without injection, external ear normal to inspection and nontender, nares patent, moist mucus membranes, dentition intact, no oropharyngeal lesions, neck supple, trachea midline, no LAD, no thyromegaly, no JVD Heart: +S1/S2, regular, no m/r/g Lungs: equal air entry bilaterally, no rales/rhonchi/wheezes Abd: +BS, soft, ND, mild tenderness in the lower abdomen to deep palpation without rebound/guarding or peritonitis, no masses/organomegaly/ascites Ext: warm, 2+ pulses in UE/LE bilaterally, no clubbing/cyanosis or edema Neuro: nonfocal, patient AA&O x 4, speech intact, no facial droop, moving all extremities on command with equal strength 5/5 Results & Data Results & Data Vital Signs (Past 12 Hours) Vital Signs Temp Pulse Pulse Resp BP BP Pulse Ox 07/16/23 20:00 36.6 C 71 18 131/63 97 07/16/23 18:00 68 18 131/63 97 07/16/23 17:02 70 07/16/23 16:41 97 H 18 131/63 99 07/16/23 16:20 97 07/16/23 16:16 36.7 C 73 16 113/77 97 O2 Del Method 07/16/23 20:00 07/16/23 18:00 Room Air 07/16/23 17:02 07/16/23 16:41 Room Air 07/16/23 16:20 Room Air 07/16/23 16:16 Room Air Laboratory Results Laboratory Results WBC 13.73 K/ul (4.8-10.8) H 07/16/23 16:30 RBC 3.98 M/uL (4.20-5.40) L 07/16/23 16:30 Hgb 8.7 g/dl (12.0-16.0) L 07/16/23 16:30 Hct 29.2 % (37.0-47.0) L 07/16/23 16:30 MCV 73.4 fL (80.0-100.0) L 07/16/23 16:30 MCH 21.9 pg (25.0-34.0) L 07/16/23 16:30 MCHC 29.8 g/dL (32.0-36.0) L 07/16/23 16:30 RDW Std Deviation 50.4 fL (36.4-46.3) H 07/16/23 16:30 RDW Coeff of Nael 19.2 % (11.5-14.5) H 07/16/23 16:30 Plt Count 440 K/uL (130-400) H 07/16/23 16:30 MPV 9.8 fL (9.4-12.4) 07/16/23 16:30 Immature Gran % (Auto) 0.4 % 07/16/23 16:30 Neut % (Auto) 67.0 % 07/16/23 16:30 Lymph % (Auto) 18.5 % 07/16/23 16:30 [place] % (Auto) 9.0 % 07/16/23 16:30 Eos % (Auto) 4.7 % 07/16/23 16:30 Baso % (Auto) 0.4 % 07/16/23 16:30 Neut # (Auto) 9.18 K/uL (1.40-6.50) H 07/16/23 16:30 Lymph # (Auto) 2.54 K/uL (1.20-3.40) 07/16/23 16:30 [place] # (Auto) 1.24 K/uL (0.11-0.59) H 07/16/23 16:30 Eos # (Auto) 0.65 K/uL (0.00-0.50) H 07/16/23 16:30 Baso # (Auto) 0.06 K/uL (0.00-0.20) 07/16/23 16:30 Immature Gran # (Auto) 0.06 K/uL (0.01-0.20) 07/16/23 16:30 PT 10.4 Seconds (9.0-12.0) 07/16/23 16:30 INR 0.9 (0.9-1.1) 07/16/23 16:30 APTT 22 Seconds (21-31) 07/16/23 16:30 PTT Ratio 0.8 07/16/23 16:30 Sodium 138 mmol/L (136-145) 07/16/23 16:30 Potassium 3.7 mmol/L (3.5-5.1) 07/16/23 16:30 Chloride 108 mmol/L (98-107) H 07/16/23 16:30 Carbon Dioxide 22 mmol/L (21-32) 07/16/23 16:30 Anion Gap 8 (3-11) 07/16/23 16:30 BUN 13 mg/dl (6-23) 07/16/23 16:30 Creatinine 0.99 mg/dl (0.6-1.2) 07/16/23 16:30 Est Cr Clr Drug Dosing 47.2 ml/min 07/16/23 16:30 Est GFR ( Amer) 64.6 ml/min 07/16/23 16:30 Est GFR (Non-Af Amer) 55.7 ml/min 07/16/23 16:30 BUN/Creatinine Ratio 13.1 (10-20) 07/16/23 16:30 Glucose 97 mg/dl (70-99(Fasting)) 07/16/23 16:30 Lactate 1.4 mmol/L (0.4-2.0) 07/16/23 16:30 Calcium 8.8 mg/dl (8.6-10.3) 07/16/23 16:30 Magnesium 1.8 mg/dl (1.7-2.4) 07/16/23 16:30 Total Bilirubin 0.2 mg/dl (0.2-1.0) 07/16/23 16:30 AST 16 U/L (13-39) 07/16/23 16:30 ALT 10 U/L (7-52) 07/16/23 16:30 Alkaline Phosphatase 73 U/L (34-104) 07/16/23 16:30 Troponin I High Sens 6.5 pg/ml (0-14) 07/16/23 16:30 Total Protein 6.9 gm/dl (6.0-8.3) 07/16/23 16:30 Albumin 3.8 gm/dl (3.4-5.0) 07/16/23 16:30 Globulin 3.1 gm/dl (2.5-4.0) 07/16/23 16:30 Albumin/Globulin Ratio 1.2 (0.9-2) 07/16/23 16:30 Lipase 41 U/L (11-82) 07/16/23 16:30 Procalcitonin < 0.05 ng/ml (0-0.5) 07/16/23 16:30 Urine Color Yellow 07/16/23 21:40 Urine Appearance Clear (Clear) 07/16/23 21:40 Urine pH 5.5 (4.5-7.5) 07/16/23 21:40 Ur Specific [place] 1.015 (1.000-1.030) 07/16/23 21:40 Urine Protein Trace (Negative) H 07/16/23 21:40 Urine Glucose (UA) Negative (Negative) 07/16/23 21:40 Urine Ketones Negative (Negative) 07/16/23 21:40 Urine Blood Negative (Negative) 07/16/23 21:40 Urine Nitrite Negative (Negative) 07/16/23 21:40 Urine Bilirubin Negative (Negative) 07/16/23 21:40 Urine Urobilinogen Negative (Negative) 07/16/23 21:40 Ur Leukocyte Esterase Negative (Negative) 07/16/23 21:40 Urine WBC (Auto) 1-5 /hpf (0-5) 07/16/23 21:40 Urine RBC (Auto) 0-4 /hpf (0-4) 07/16/23 21:40 U Hyaline Cast (Auto) 1-5 /lpf (0-5) 07/16/23 21:40 U Epithel Cells (Auto) >30 /lpf (0-5) H 07/16/23 21:40 Urine Bacteria (Auto) Negative (Negative) 07/16/23 21:40 Ur Renal Epithelial Cell Not Reportable 07/16/23 21:40 Blood Type O Positive 07/16/23 16:30 Antibody Screen NEGATIVE 07/16/23 16:30 Impressions Chest X-Ray 07/16/23 16:20 XR chest 1V portable HISTORY: Chest pain, nonspecific COMPARISON: Chest 11/14/2022. FINDINGS: No pneumothorax. No pleural effusions. The heart remains mildly enlarged. No evidence for pulmonary edema. There are surgical clips within the right axilla. A few bibasilar linear densities favor subsegmental atelectasis or scarring. Otherwise, no new focal lung consolidations to suggest a pneumonia. There is a small hiatus hernia. There are calcifications within the aortic knob. No acute fractures identified. IMPRESSION: 1. Mild cardiomegaly again noted. 2. No evidence for pulmonary edema. 3. Bibasilar linear densities favor subsegmental atelectasis. ACT 112: Negative or not required by law. Electronically signed by: Todd Beach M.D. 07/16/2023 6:19 PM ECG Additional Comments: EKG - per my interpretation - image reveals NSR at 70bpm, normal axis, RS=160, QRS=72, PKx=233, no ischemic changes PG Care Time/CCT Total # of Minutes Spent Total Time Spent with Patient: Total time spent is greater than 50% in coordination of care (as documented) at patient's floor/unit and/or counseling patient: Coding Level of Care Code 99027 INT INP/OBS CARE 2/55MIN Diagnoses Colitis K52.9 Dyslipidemia E78.5 Hypertension I10
[2023-07-16] MEDS ORDERED: ACETAMINOPHEN 325 MG TAB PO PRN (21:34)
[2023-07-16] MEDS ORDERED: ONDANSETRON INJ 2 MG/ML 2 ML VIAL IV PRN (21:34)
[2023-07-16] MEDS: LACTATED RINGER'S 1,000 ML IV SCH (21:59)
[2023-07-16 22:05] LABS: Appearance Urine Clear (Clear); Bacteria Urine Automated Negative (Negative); Bilirubin Urine Negative (Negative); Blood Urine Negative (Negative); Color Urine Yellow; Epithelial Cell Urine Auto >30 /lpf (0-5); Glucose Urine UA Negative (Negative); Ketones Urine Negative (Negative); Leukocyte Esterase Urine Negative (Negative); Nitrite Urine Negative (Negative); Protein Urine Trace (Negative); RBC Urine Automated 0-4 /hpf (0-4); Specific Gravity Urine 1.015 (1.000-1.030); Urobilinogen Urine Negative (Negative); pH Urine 5.5 (4.5-7.5)
[2023-07-16] MEDS: FAMOTIDINE 20 MG TAB PO SCH (22:12)
[2023-07-16] MEDS: QUEtiapine FUMARATE 100 MG TABLET PO SCH (22:13)
[2023-07-16] MEDS: PRAMIPEXOLE DIHYDROCHLO 0.5 MG TAB PO SCH (22:13)
[2023-07-16] MEDS: ROSUVASTATIN CALCIUM 20 MG TAB PO SCH (22:13)
[2023-07-16] MEDS: PROPRANOLOL HCL 20 MG TAB PO SCH (22:13)
[2023-07-17 07:02] LABS: Hematocrit (blood only) 25.1 % (37.0-47.0); Hemoglobin 7.4 g/dl (12.0-16.0); Mean Corpuscular Hemoglobin 21.7 pg (25.0-34.0); Mean Corpuscular Hgb Conc 29.5 g/dL (32.0-36.0); Mean Corpuscular Volume 73.6 fL (80.0-100.0); Mean Platelet Volume 10.2 fL (9.4-12.4); Platelet Count 375 K/uL (130-400); RDW Coefficient of Variation 19.1 % (11.5-14.5); RDW Standard Deviation 51.3 fL (36.4-46.3); Red Blood Count 3.41 M/uL (4.20-5.40); White Blood Count 9.24 K/ul (4.8-10.8)
[2023-07-17 07:39] LABS: Calcium 8.4 mg/dl (8.6-10.3); Creatinine Clr Calc Pharmacy 57.3 ml/min; Est GFR (African American) 81.1 ml/min; Potassium 3.4 mmol/L (3.5-5.1)
[2023-07-17] MEDS: EZETIMIBE 10 MG TAB PO SCH (08:34)
[2023-07-17] MEDS: POTASSIUM CHLORIDE CRTAB 20 MEQ TABCR PO STA (08:34)
[2023-07-17] MEDS: PANTOprazole 40 MG TAB PO SCH (08:34)
[2023-07-17] MEDS: LOSARTAN POTASSIUM 25 MG TAB PO SCH (08:34)
--- NOTE | 2023-07-17 10:32 | Hospitalist Progress Note ---
Date of Service July 17, 2023 Assessment & Plan (1) Colitis: Plan: 73yo female with ongoing diarrhea for the last 6 days. Found to have aldana- colitis on CT during and ER visit 07/14/23. Suspect ongoing colitis - infectious vs inflammatory. Stool studies have been sent from [facility] including Salmonella/Shigella, Giardia and Campylobacter antigen, Shiga Toxin EIA and stool comments which are PENDING C. diff study from [facility] is NEGATIVE for C. diff gene. -Check Stool Biofire PCR when patient produces a sample -Check FOBT, C. Diff and Ova and Parasites -IVF with LR at 80mL/hr x 2 liters -Tylenol as needed for pain -Will hold on antibiotics for now pending collection of stool studies above (2) Anemia: Plan: Per patient, primary reason [facility] sent her back - No clear source - Hgb 8.7 on admission, recheck today 7.4 ?dilutional - Recheck H&H and iron studies this evening (3) Dyslipidemia: Plan: Chronic. Stable -Continue Zetia 10mg po qAM -Continue Crestor 40m gpo qHS (4) Hypertension: Plan: -Continue Propranolol 20mg po qPM -Losartan 25mg po daily while inpatient - patient is on Candesartan at home, nonformulary (5) Aortic stenosis: Plan: Per chart review Echo 2021 with mild and EF 65-70% - Monitor lightheadedness and dizziness, if not improving with fluids and her anemia, consider echo Plan Dispo: continued inpatient stay Admission and Anticipated Discharge Date Admission Date: July 16, 2023 Subjective Patient seen lying in bed. Denies abdominal pain but reports that she has discomfort at times. Has not had any bowel movements since she has been admitted to the hospital. Reports decreased appetite but no fevers. Does endorse feeling lightheaded and dizzy over the last 4-5 days. Concerns for anemia - states last colonoscopy about 5 years ago. Denies dark/tarry stools or BRBPR, no easy bruising. Review of Systems Review of Systems: All systems reviewed & are unremarkable except as noted in Subjective Physical Exam Physical Exam: General: NAD, VS as above Resp: normal respiratory effort, lungs clear to auscultation CV: RRR, 2/6 murmur Abd: normal bowel sounds, non tender, no hepatosplenomegaly Extremities: Moves all extremities, no edema Neuro: A&O x3, Skin: intact, no lesions noted Results & Data Results & Data Vital Signs (Past 12 Hours) Vital Signs Temp Pulse Resp BP Pulse Ox O2 Del Method 07/17/23 08:06 37.0 C 70 16 125/85 97 Room Air Laboratory Results CBC and chemistry reviewed PG Care Time/CCT Total # of Minutes Spent Total Time Spent with Patient: Total time spent is greater than 50% in coordination of care (as documented) at patient's floor/unit and/or counseling patient: Coding Level of Care Code 01864 SUB INP/OBS CARE 2/35MIN Diagnoses Colitis K52.9 Anemia D64.9 Dyslipidemia E78.5 Hypertension I10 Aortic stenosis I35.0
--- NOTE | 2023-07-17 11:42 | Electrocardiogram Report ---
Test Reason : Blood Pressure : / mmHG Vent. Rate : 070 BPM Atrial Rate : 070 BPM P-R Int : 202 ms QRS Dur : 072 ms QT Int : 404 ms P-R-T Axes : 061 023 029 degrees QTc Int : 436 ms Normal sinus rhythm Poor R wave progression, consider anterior WI vs. lead placement vs. LVH Abnormal ECG When compared with ECG of 14-NOV-2022 13:43, Minimal criteria for Anterior infarct are now Present T wave inversion no longer evident in Lateral leads Confirmed by Randall Lainez ([id number]) on 07/17/2023 11:42:01 AM Referred By: REFERRED SELF Confirmed By:Randall Lainez
[2023-07-17 17:03] LABS: Hematocrit (blood only) 24.9 % (37.0-47.0); Hemoglobin 7.3 g/dl (12.0-16.0)
[2023-07-17 17:34] LABS: Ferritin 9.7 ng/ml (8-388)
[2023-07-17] MEDS: IRON SUCROSE 300 MG in SODIUM CHLORIDE 0.9% 250 ML IV SCH (20:53)
[2023-07-18 07:11] LABS: Basophils # (auto) 0.04 K/uL (0.00-0.20); Basophils % (auto) 0.4 %; Eosinophils # (auto) 0.45 K/uL (0.00-0.50); Hematocrit (blood only) 25.6 % (37.0-47.0); Hemoglobin 7.5 g/dl (12.0-16.0); Immature Granulocytes # (auto) 0.06 K/uL (0.01-0.20); Immature Granulocytes % (auto) 0.5 %; Lymphocytes # (auto) 1.75 K/uL (1.20-3.40); Lymphocytes % (auto) 15.7 %; Mean Corpuscular Hemoglobin 21.4 pg (25.0-34.0); Mean Corpuscular Hgb Conc 29.3 g/dL (32.0-36.0); Mean Corpuscular Volume 73.1 fL (80.0-100.0); Mean Platelet Volume 9.7 fL (9.4-12.4); Monocytes # (auto) 1.09 K/uL (0.11-0.59); Monocytes % (auto) 9.8 %; Neutrophils # (auto) 7.73 K/uL (1.40-6.50); Neutrophils % (auto) 69.6 %; Nucleated RBC # (auto) 0.02 K/uL (0.00-0.12); Nucleated RBC % (auto) 0.2 %; Platelet Count 383 K/uL (130-400); RDW Standard Deviation 50.1 fL (36.4-46.3); White Blood Count 11.12 K/ul (4.8-10.8)
[2023-07-18 07:36] LABS: Anisocytosis Present; Ovalocytes 1+; Polychromasia 1+
[2023-07-18 07:48] LABS: BUN Creatinine Ratio 7.6 (10-20); Calcium 8.7 mg/dl (8.6-10.3); Creatinine Clr Calc Pharmacy 59.4 ml/min; Est GFR (African American) 84.9 ml/min; Est GFR (Non-African American) 73.2 ml/min; Potassium 3.7 mmol/L (3.5-5.1)
[2023-07-18] MEDS: IRON SUCROSE 300 MG in SODIUM CHLORIDE 0.9% 250 ML IV ONE (09:35)
--- NOTE | 2023-07-18 15:11 | Hospitalist Progress Note ---
Date of Service July 18, 2023 Assessment & Plan (1) Colitis: Plan: 73yo female with ongoing diarrhea for the last 6 days. Found to have aldana- colitis on CT during and ER visit 07/14/23. Suspect ongoing colitis - likely inflammatory. Stool studies have been sent from [facility] including Salmonella/Shigella, Giardia and Campylobacter antigen, Shiga Toxin EIA and stool comments which are PENDING C. diff study from [facility] is NEGATIVE for C. diff gene. No stool studies completed here as patient has not had bowel movement since admission, making infectious process far less likely. No need for antibiotics. -Recived 2L LR -Tylenol as needed for pain (2) Anemia: Plan: Per patient, primary reason [facility] sent her back - No clear source - Hgb 8.7 on admission, stable at 7.5 - Outpatient GI follow up for scopes - Received IV iron x2, if does not discharge today will order third dose for 2/3 (3) Dyslipidemia: Plan: Chronic. Stable -Continue Zetia 10mg po qAM -Continue Crestor 40m gpo qHS (4) Hypertension: Plan: -Continue Propranolol 20mg po qPM -Losartan 25mg po daily while inpatient - patient is on Candesartan at home, nonformulary (5) Aortic stenosis: Plan: Per chart review Echo 2021 with mild and EF 65-70% - episode of lightheadedness 2/2 - echo ordered - orthostatic BPs WNL Plan Dispo: continued inpatient stay pending echo results. Admission and Anticipated Discharge Date Admission Date: July 16, 2023 Subjective patient resting in bed. reports episode of lightheadedness this morning when trying to go to the bathroom and had to call for nursing assistnace. no further diarrhea - has not had a bowel movement since admission. Review of Systems Review of Systems: All systems reviewed & are unremarkable except as noted in Subjective Physical Exam Physical Exam: General: NAD, VS as above Resp: normal respiratory effort, lungs clear to auscultation CV: RRR, 2/6 murmur Abd: normal bowel sounds, non tender, no hepatosplenomegaly Extremities: Moves all extremities, no edema Neuro: A&O x3, Skin: intact, no lesions noted Results & Data Results & Data Vital Signs (Past 12 Hours) Vital Signs Temp Pulse Resp BP Pulse Ox O2 Del Method 07/18/23 14:30 37.0 C 78 18 115/53 L 92 Room Air 07/18/23 07:07 37.0 C 71 16 111/65 93 Room Air Laboratory Results cbc and chemistry reviewed PG Care Time/CCT Total # of Minutes Spent Total Time Spent with Patient: Total time spent is greater than 50% in coordination of care (as documented) at patient's floor/unit and/or counseling patient: Coding Level of Care Code 92540 SUB INP/OBS CARE 2/35MIN Diagnoses Colitis K52.9 Anemia D64.9 Dyslipidemia E78.5 Hypertension I10 Aortic stenosis I35.0
--- NOTE | 2023-07-18 19:25 | XCELERA ---
[id number]
[2023-07-19] MEDS: IRON SUCROSE 300 MG in SODIUM CHLORIDE 0.9% 250 ML IV ONE (05:47)
[2023-07-19 06:36] LABS: Basophils # (auto) 0.04 K/uL (0.00-0.20); Basophils % (auto) 0.4 %; Eosinophils # (auto) 0.66 K/uL (0.00-0.50); Hematocrit (blood only) 26.8 % (37.0-47.0); Hemoglobin 7.8 g/dl (12.0-16.0); Immature Granulocytes % (auto) 0.9 %; Lymphocytes # (auto) 2.18 K/uL (1.20-3.40); Lymphocytes % (auto) 19.9 %; Mean Corpuscular Hemoglobin 21.5 pg (25.0-34.0); Mean Corpuscular Hgb Conc 29.1 g/dL (32.0-36.0); Mean Corpuscular Volume 73.8 fL (80.0-100.0); Mean Platelet Volume 9.7 fL (9.4-12.4); Monocytes # (auto) 0.83 K/uL (0.11-0.59); Monocytes % (auto) 7.6 %; Neutrophils # (auto) 7.15 K/uL (1.40-6.50); Neutrophils % (auto) 65.2 %; Nucleated RBC # (auto) 0.03 K/uL (0.00-0.12); Nucleated RBC % (auto) 0.3 %; Platelet Count 385 K/uL (130-400); RDW Coefficient of Variation 18.7 % (11.5-14.5); RDW Standard Deviation 49.2 fL (36.4-46.3); Red Blood Count 3.63 M/uL (4.20-5.40); White Blood Count 10.96 K/ul (4.8-10.8)
[2023-07-19 07:36] LABS: Ovalocytes 1+; Polychromasia 2+
--- NOTE | 2023-07-19 10:01 | Discharge Summary ---
Discharge Summary Date of Service July 19, 2023 Notes For Next Care Provider Given IV iron (venofer) x 3, hgb stable. Will need outpatient GI follow up No further episodes of diarrhea while inpatient Medication Changes From Visit None - important to take PPI daily, avoid NSAIDs Admission HPI Per Admitting Provider Johanna oBjorquez is a 73yo female with remote history of breast CA, HTN, HLP and GERD presenting with diarrhea. Patient was recently in [facility] for vacation. 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 She developed diarrhea around 07/11/23 - multiple episodes of watery diarrhea, 4- 5x daily. She reports passing "pure liquid" without blood or mucus. She has had nighttime symptoms as well as fecal incontinence. She does not feel that her diarrhea is associated with meals. She was seen in the ER on 07/14/23 with these complaints. She had a CT of the abdomen which revealed nonspecific aldana-colitis mostly involving the right colon - infectious vs inflammatory. She was treated with IVF and ultimately discharged home with instruction to followup with GI. Patient had labs performed by her PCP today which revealed a decrease in her Hgb to 7.9 so she was instructed to come to the ER. Patient reports ongoing diarrhea. No blood or mucus. Some dull lower abdominal discomfort that occurs mainly before bowel movements and is relieved by having a BM. She denies painful BMs or tenesmus. She denies fever, chills, abdominal distention, chest pain or shortness of breath. No recent antibiotic use. Patient reportedly tested NEGATIVE for C. diff at [facility]. In the Er she is afebrile, mildly hypertensive otherwise HD stable No stool sample provided as of yet ER Course: NSS x 1L Principal Dx & Hospital Course #1 = Principal Diagnosis (1) Colitis: 73yo female with ongoing diarrhea for the last 6 days. Found to have aldana- colitis on CT during and ER visit 07/14/23. Suspect ongoing colitis - likely inflammatory. Stool studies have been sent from [facility] including Salmonella/Shigella, Giardia and Campylobacter antigen, Shiga Toxin EIA and stool comments which are PENDING C. diff study from [facility] is NEGATIVE for C. diff gene. No stool studies completed here as patient has not had bowel movement since admission, making infectious process far less likely. No need for antibiotics. -Recived 2L LR -Tylenol as needed for pain (2) Anemia: Per patient, primary reason [facility] sent her back to the ER - Iron deficiency on iron studies - Hgb 8.7 on admission, lowest 7.3 during admission, but stable at 7.8 days of discharge --> recommend recheck CBC in 1-2 weeks - Outpatient GI follow up for scopes - Received IV iron x3 (3) Dyslipidemia: Chronic. Stable -Continue Zetia 10mg po qAM -Continue Crestor 40m gpo qHS (4) Hypertension: -Continue Propranolol 20mg po qPM - cotninue home Candesartan at discharge (5) Aortic stenosis: - episode of lightheadedness 2/2 --> no further epidoses - echo: stable mild , MR. EF 60-65% - orthostatic BPs WNL Plan Dispo: discharge to [facility] Discharge Exam General: NAD, VS as above Resp: normal respiratory effort, lungs clear to auscultation CV: RRR, 2/6 murmur Abd: normal bowel sounds, non tender, no hepatosplenomegaly Extremities: Moves all extremities, no edema Neuro: A&O x3, Skin: intact, no lesions noted Updated Medication List Medication Instructions Recorded Confirmed Type celecoxib 100 mg capsule 100 mg PO BID PRN Pain 05/31/19 07/16/23 History ezetimibe 10 mg tablet 10 mg PO QAM 05/31/19 07/16/23 History rosuvastatin 40 mg tablet 40 mg PO HS 05/31/19 07/16/23 History esomeprazole magnesium 20 mg 20 mg PO QAM 06/10/20 07/16/23 History capsule,delayed release (Nexium 24HR) candesartan 8 mg tablet 8 mg PO QAM 05/28/23 07/16/23 History famotidine 20 mg tablet 20 mg PO QPM 05/28/23 07/16/23 History pramipexole 1 mg tablet 1 mg PO HS 05/28/23 07/16/23 History propranolol 20 mg tablet 20 mg PO QPM 05/28/23 07/16/23 History quetiapine 100 mg tablet (Seroquel) 100 mg PO HS 05/28/23 07/16/23 History acetaminophen 325 mg tablet 650 mg (2 x 325 mg) PO Q4H PRN 07/19/23 Rx Pain 30 days #30 tabs Hospital Stay Data Consultations 07/16/23 19:41 ED Decision to Admit Stat Pending Results Patient Have Any Pending Studies at Discharge: No Discharge Instructions Given to Patient (Per Discharging Provider) Ms. Bojorquez, Nate were hospitalized after having diarrhea and low hemoglobin blood count. You did not have any further episodes of diarrhea while you were in the hospital, and therefore we were not able to complete any stool studies. But without continued diarrhea it is very unlikely that there was a persistent infection, you likely had food posioning or traveler's diarrhea. If you do not have a bowel movement at home, you can use miralax or senna to help with constipation. You were also noticed to be anemic, we checked your iron stores and they were quite low, so you received 3 doses of IV iron while you were here. You will need outpatient GI followup, for likely scopes to look for a source of the bleeding. [facility] from [facility] should contact you with an appointment, if you do not hear anything by Friday, please call the GI office (their number is above). Continue Esomeprazole daily for GI protection. Recommend recheck CBC in 1-2 weeks. Avoid NSAIDS - aleve, naproxen, ibuprofen, Motrin. You can take Tylenol for pain . You also reported lightheadedness and dizziness that was likely from dehydration. We did an US of your heart to make sure there were no knew causes for this with your heart murmur and that looked stable from the last time. Mild aortic stenosis. If you notice any dark tarry stools or coffee ground stools or bright red blood in your stools please contact the GI office or return to the ER. It was our pleasure taking care of you, Aubree Baez PA-C Total Time Total Time Spent Total Time Spent (In Minutes): Time spend day of discharge 35 minutes including direct patient care, medication reconciliation, documentation, review of labs and images, and coordination of care. Coding Level of Care Code 49438 INP/OBS DISCH >30 MIN Diagnoses Colitis K52.9 Anemia D64.9 Dyslipidemia E78.5 Hypertension I10 Aortic stenosis I35.0
== END 2023-07-19 11:19 | disposition home or self-care (01) ==
LOC: ED 15:35 → 3W 15:35 → SUATTDRO 20:20 → 3W 21:24